=== PATIENT | female | born 1935 | race Caucasian/White ===

== ENCOUNTER → 2017-04-30 08:56 | Outpatient (CLI) | payer MEDICARE, SELFPAY ==
--- NOTE | 2017-04-30 08:59 | MM_ITS ---
MM Dig screening mamm BI w/CAD CAD Screening COMPARISON: Digital mammograms 04/16/2015 and 04/25/2016 INDICATION: There is a history of breast cancer in patient's sister diagnosed after menopause. TECHNIQUE: Standard CC and MLO images were obtained. R2 CAD reviewed. FINDINGS: Scattered fibroglandular densities are seen throughout both breasts. There is a possible asymmetric density right breast best seen on the CC projection area this may been present previously but appears slightly more prominent on today's study. Recommend the patient return for spot compression views of the area marked on the film and possibly ultrasound as well this proves to be a true lesion. There are scattered benign-appearing calcifications in each breast and there is arterial calcification in each breast there are no suspicious microcalcifications.. IMPRESSION: BI-RADS Category: 0 Need Additional Imaging Evaluation RECOMMENDED FOLLOW-UP: IMM - IMMEDIATE FOLLOW-UP RECOMMENDED (A letter has been sent to the patient regarding results of the study.)
--- NOTE | 2017-04-30 08:59 | XR_ITS ---
DEXA SCAN.-BONE DENSITY STUDY HIPS AND LUMBAR SPINE HISTORY: Postmenopausal female. 81-year-old postmenopausal female. Personal and family history of fracture. Low calcium intake TECHNIQUE: DEXA scan hip and lumbar spine The most complete data summary and color graphic presentation of the today's ( and any prior ) DEXA findings are available in PACS. Definition and treatment guidelines included. COMPARISON:. April 2016 LUMBAR SPINE: Normal bone density at This T2 likely accentuated the sclerotic endplate changes particularly L2/3 L3/4. Mild levoscoliosis of L-spine noted L2 vertebral body demonstrates the lowest T score -1.4 with BMD1.028 g/cm sq Overall mean lumbar L1-L4 T score 0.3 with BMD1.219 g/cm sq . 2017 prior DEXA the mean T score 0.2,. With BMD was1.24g/cm sq Thus when comparing today's study to the prior exam there's been a 1.2% increasing mean bone density at the lumbar spine. HIPS: Femoral neck density is best predictor of hip fracture risk . Right femoral neck demonstrates the lowest T score -2.6 with BMD0.68 g/cm sq . = Early Osteoporosis Left lower neck T score -2.3 with BMD 0.712 Averaging all regions yields overall Hip Mean T score -1.5 with BMD0.814 g/cm sq . 2017 DEXA hip overall T score -1.2 with mean BMD0.853 g/cm sq Thus this reflects a 4. 6% decrease in overall mean bone density at the hips in the interval. The sampling of boxes and reference point for measurement appear similar only slightly very from 2017 to the current. This may account in part for the subtle variation. IMPRESSION 1. LUMBAR SPINE: Normal bone density . levoscoliosis of L-spine noted 2. HIPS: Overall osteopenia at the hips with T score -1.5. 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 (This Likely exaggerated by subtle variations of positioning the sampling boxes & reference points) WHO criteria for post-menopausal, Women: Normal: T-score at or above -1 SD Osteopenia: T-score between -1 and -2.5 SD Osteoporosis: T-score at or below -2.5 SD
== END ==
PROVIDERS: Family Provider Family Medicine; PCP Family Medicine; Visit Provider Obstetrics & Gynecology
DX: Z78.0 Asymptomatic menopausal state; Z01.419 Encounter for gynecological examination (general) (routine) without abnormal findings; Z13.820 Encounter for screening for osteoporosis; Z12.31 Encounter for screening mammogram for malignant neoplasm of breast
CPT/HCPCS: 77067; 77080

== ENCOUNTER → 2018-04-01 09:37 | Outpatient (CLI) | payer MEDICARE, SELFPAY ==
--- NOTE | 2018-04-01 09:41 | XR_ITS ---
XR DEXA axial skeleton HISTORY: ITS.REASON: OSTEOPOROSIS ORDERING PHYSICIAN: Yossi Acosta MD PATIENT AGE: 82 years COMPARISON: 04/30/2017 FINDINGS: The BMD measured at the Right femoral neck is 0.661 g/cm squared with a T score of -2.7. This is considered Osteoporotic according to the World Health Organization criteria. Fracture risk is High. Treatment is advised. The L1 L4 density has a T score of 0.5. The spine and hip density has increased by 1.4%. IMPRESSION: Osteopenia without fracture risk. Suggest treatment and follow-up exam in March 2019
== END ==
PROVIDERS: PCP Internal Medicine Adolescent Medicine; Referring Provider Internal Medicine Adolescent Medicine; Visit Provider Internal Medicine Adolescent Medicine
DX: M81.0 Age-related osteoporosis without current pathological fracture (principal)
CPT/HCPCS: 77080

== ENCOUNTER → 2018-11-01 07:00 | Outpatient (CLI) | payer MEDICARE, SELFPAY ==
--- NOTE | 2018-11-01 07:11 | NM_ITS ---
APPROVED REPORT Exam: Nuclear Stress Test Indication: HTN, DM, SOB, Fatigue, Rt arm pain, Family hx, High Cholesterol Patient Location: Outpatient Stress Tech: [place] Tech:RIGO Kearns RT(R)(N) Ht: 5 ft 0 in Wt: 160 lbs BSA: 1.70 m2 HR: 60 bpm BP: 195/77 mmHg History: HTN, DM, SOB, Fatigue, Rt arm pain, Family hx, High Cholesterol Procedure: Patient received a 0.4 mg of intravenous Lexiscan, resting heart rate 60 bpm, resting blood pressure 195/77 mmHg, with Lexiscan maximum heart rate achived was 79 bpm which is Less than 85 % of the maximum predicted heart rate and blood pressure was 204/88 mmHg. With Lexiscan, patient denied any complaint of chest pain. Electrocardiogram Resting electrocardiogram showed sinus rhythm right ventricular conduction delay, with Lexiscan there is less than 1.[address] segment depression from the baseline EKG. Cardiac Stress and Resting SPECT Images: Cardiac Stress and Resting SPECT images were obtained using technetium 99m Myoview 31 mCi stress and 10 mCi at rest. Gated SPECT for analysis of segmental wall motion and completion of the ejection fraction also done. Cardiac stress and resting SPECT images show mild fixed defect in the anterior wall with normal contractility and the gated SPECT is likely secondary to soft tissue attenuation. Computer derived ejection fraction is over 65% with no regional wall motion abnormality, right ventricle is normal size and contractility. Conclusion: 1. The EKG portion of the Lexiscan Myoview is nondiagnostic. 2. No scintigraphic evidence of reversible ischemia seen, computer derived ejection fraction is over 65% with no regional wall motion abnormality, right ventricle is normal size and contractility. 3. Normal Lexiscan Myoview study. Electronically signed by : Silvestre Oh, 11/07/2018 15:34:47
--- NOTE | 2018-11-01 09:56 | HMH.ITSHM ---
Current Home Medications as stated by this patient Lidya Zamora or human resources representative. []metformin metoprolol losartan pravastatin
== END ==
PROVIDERS: PCP Internal Medicine Adolescent Medicine; Visit Provider Internal Medicine Adolescent Medicine
DX: R07.89 Other chest pain (principal); R94.31 Abnormal electrocardiogram [ECG] [EKG]
CPT/HCPCS: 78452; 93017; A9502; J2785

== ENCOUNTER 2019-08-19 13:08 | Emergency (ER) | payer MEDICARE, SELFPAY ==
[2019-08-19] VITALS (14 sets, daily range): BP systolic 102–241; BP diastolic 46–99; PULSE 65–85; RESP 16–18; TEMP 36.6–37.1; O2SAT 98; BMI 29.2
--- NOTE | 2019-08-19 13:20 | HMH.EDGENADL ---
ED Disposition Clinical Impression: Uncontrolled hypertension, Hypertensive urgency Disposition: Home, Self-Care Condition on Discharge: Good Instructions: DI for High Blood Pressure Additional Instructions: Continue metoprolol and losartan/HCTZ as previously. Add nifedipine XL 30 mg daily, start first dose tonight. See Dr. Chaney in the office tomorrow for blood pressure recheck. Return to the emergency department if severe headache, blurry vision, chest pain, or shortness of breath. Prescriptions: NIFEdipine [Procardia XL 30mg Tablet] 30 mg PO DAILY #14 tablet.er Transmission Status: Received by [facility] #[id number] Referrals: Yossi Acosta MD [Primary Care Provider] - - Critical Care Critical Care Time: Yes Attestation: On , the high probability of a clinically significant, sudden or life threatening deterioration of the following system(s) required my full and direct attention, intervention and personal management. The time I documented below is in addition to time spent performing reported procedures but includes the following listed in this critical care notation. Total Critical Care Time: 30 Vital system(s) involved:: Circulatory Failure My critical care processes included: Assessment & monitoring of V/S, Initial and Re-exams, Data Review/Interpretation, Coordinating Care, Medication Orders and management, Documentation Medical Decision Making - Medical Records Medical records reviewed: Yes: I reviewed the patient's medical records. - Stephen Inquiry Pt receiving controlled substance: No Vital Signs: 08/19/19 13:09 08/19/19 13:39 08/19/19 13:47 Temperature 98.8 F Temperature Source Oral Pulse Rate Pulse Rate [Left Radial] 69 70 72 Respiratory Rate 18 Blood Pressure Blood Pressure [Left Arm] 230/81 H 199/99 H 214/88 H Blood Pressure [Right Arm] 241/93 H Blood Pressure Mean [Left Arm] 130 132 130 Blood Pressure Mean [Right Arm] 142 Blood Pressure Source [Left Arm] Blood Pressure Position [Left Arm] 02 Sat by Pulse Oximetry 98 Oxygen Delivery Method Room Air 08/19/19 14:06 08/19/19 14:11 08/19/19 14:20 Temperature Temperature Source Pulse Rate Pulse Rate [Left Radial] 65 Respiratory Rate Blood Pressure Blood Pressure [Left Arm] 214/94 H 151/66 H Blood Pressure [Right Arm] 112/53 L Blood Pressure Mean [Left Arm] 134 94 Blood Pressure Mean [Right Arm] 72 Blood Pressure Source [Left Arm] Automatic Cuff Blood Pressure Position [Left Arm] Sitting 02 Sat by Pulse Oximetry Oxygen Delivery Method 08/19/19 14:27 08/19/19 14:29 08/19/19 14:45 Temperature Temperature Source Pulse Rate Pulse Rate [Left Radial] Respiratory Rate Blood Pressure Blood Pressure [Left Arm] 106/50 L Blood Pressure [Right Arm] 102/46 L 107/54 L Blood Pressure Mean [Left Arm] 68 Blood Pressure Mean [Right Arm] 64 71 Blood Pressure Source [Left Arm] Blood Pressure Position [Left Arm] Sitting 02 Sat by Pulse Oximetry Oxygen Delivery Method 08/19/19 14:46 08/19/19 14:58 08/19/19 16:12 Temperature 98.2 F Temperature Source Pulse Rate 85 Pulse Rate [Left Radial] Respiratory Rate 18 Blood Pressure 149/71 H Blood Pressure [Left Arm] 113/53 L 127/60 Blood Pressure [Right Arm] Blood Pressure Mean [Left Arm] 73 82 Blood Pressure Mean [Right Arm] Blood Pressure Source [Left Arm] Blood Pressure Position [Left Arm] Sitting Sitting 02 Sat by Pulse Oximetry Oxygen Delivery Method - Lab Data Lab results reviewed: Yes: I reviewed the patient's lab results. Lab Results 08/19/19 13:45: WBC 7.8, RBC 4.40, Hgb 13.0, Hct 37.8, MCV 86.1, MCH 29.5, MCHC 34.2, RDW 13.8, Plt Count 170, MPV 8.3, Neut % (Auto) 42.1, Lymph % (Auto) 50.2 H, Ber[place] % (Auto) 5.2, Eos % (Auto) 2.0, Baso % (Auto) 0.5, Neut # (Auto) 3.3, Lymph # (Auto) 3.9, [place] # (Auto) 0.4, Eos # (Auto) 0.2, Baso # (Auto) 0.0, Total
--- NOTE | 2019-08-19 13:40 | ECG_ITS ---
APPROVED REPORT Exam: Resting ECG HR:67 bpm ECG Measurements Heart Rate 67 AXES NV 178 P 36 QRSd 142 QRS -36 QT 442 T 17 QTc 467 <Conclusion> Normal sinus rhythm Left axis deviation Right bundle branch block Voltage criteria for left ventricular hypertrophy Cannot rule out Septal infarct, age undetermined Abnormal ECG Electronically signed by : Yossi Acosta, 08/20/2019 17:09:11
[2019-08-19 14:02] LABS: Anion Gap 14.4 mEq/L (5-15); Blood Urea Nitrogen 10 mg/dl (7-17); Carbon Dioxide 29 mmol/L (22.0-30.0); Chloride 101 mmol/L (98-107); Creatinine Clearance Estimated 47 mL/min (50-200); Estimated Glomerular Filt Rate 80 ml/min (>60); GFR (African American) 97 ML/MIN (>60); Glucose 153 mg/dl (74-100); Potassium 3.4 mmoL/L (3.5-5.1); Sodium 141 mmol/L (136-145)
[2019-08-19 14:12] LABS: Basophils % 0.5 % (0.1-2.0); Eosinophils # 0.2 K/mm3 (0.0-0.4); Hematocrit 37.8 % (37.0-47.0); Lymphocytes # 3.9 K/mm3 (0.7-4.5); Lymphocytes % 50.2 % (10-50); Mean Corpuscular HGB Conc 34.2 g/dL (31.8-35.4); Mean Corpuscular Hemoglobin 29.5 pg (27.0-31.2); Mean Corpuscular Volume 86.1 fl (81-99); Mean Platelet Volume 8.3 fl (7.4-10.4); Monocytes # 0.4 K/mm3 (0.1-1.0); Monocytes % 5.2 % (1.7-9.3); Neutrophils # 3.3 K/mm3 (1.8-7.8); Neutrophils % 42.1 % (37.0-80.0); Platelet Count 170 K/mm3 (142-424); Red Cell Distribution Width 13.8 % (11.5-17.5); White Blood Count 7.8 K/mm3 (4.8-10.8)
[2019-08-19 14:22] LABS: MANUAL DIFFERENTIAL MANUAL DIFFERENTIAL (MANUAL DIFF)
[2019-08-19 14:25] LABS: Troponin I < 0.01 ng/ml (0.00-0.034)
[2019-08-19 14:27] LABS: Eosinophils % 2 % (0-3); Lymphocytes % 50 % (10-50); Monocytes % 6 % (2-9); Neutrophils % 42 % (42-76); Total Cells Counted 100
[2019-08-19 14:28] LABS: Platelet Estimate Normal; RBC Morphology Normal
--- NOTE | 2019-08-19 14:55 | PC.NURSE ---
CALLED FOR DR ZIMMERMAN OFFICE STAFF SAID HE WAS UNAVAILABLE BUT WILL LEAVE HIM A MESSAGE
--- NOTE | 2019-08-19 15:23 | PC.NURSE ---
.CALLED THE OFFICE FOR ERASMO , NOBODY IS ANSWERING , HAVING WHOEVER PROCESS MANAGER PAGED
--- NOTE | 2019-08-19 15:25 | PC.NURSE ---
WAS TOLD BY SWITCHBOARD HE WAS BUSY AND HE WOULD CALL WHEN HE IS DONE
--- NOTE | 2019-08-19 15:40 | PC.NURSE ---
dr santana is calling dr richards's office.
--- NOTE | 2019-08-19 15:46 | PC.NURSE ---
dr santana has been on hold for dr richards 7mins
--- NOTE | 2019-08-19 15:47 | PC.NURSE ---
office staff returned to phone and told dr santana that dr richards said he would call him back
--- NOTE | 2019-08-19 15:54 | PC.NURSE ---
speaking to Dr Caputo
--- NOTE | 2019-08-19 16:11 | PC.NURSE ---
appt: Karla/Harshal on 08/20/19 @2:00
== END 2019-08-19 16:21 | disposition home or self-care (01) ==
PROVIDERS: Emergency Provider Emergency Medicine; PCP Internal Medicine Adolescent Medicine
DX: I16.0 Hypertensive urgency (principal); K85.90 Acute pancreatitis without necrosis or infection, unspecified; Z79.899 Other long term (current) drug therapy; Z90.49 Acquired absence of other specified parts of digestive tract
CPT/HCPCS: 80048; 84484; 85007; 85025; 93005; 96365; 99284

== ENCOUNTER → 2020-05-18 09:12 | Outpatient (CLI) | payer MEDICARE, SELFPAY ==
--- NOTE | 2020-05-18 09:17 | XR_ITS ---
PROCEDURE: XR DEXA AXIAL SKELETON CLINICAL HISTORY: OSTEOPOROSIS W/O CURRNET PATHOLOGICAL FRACTURE COMPARISON: CR DEXAAX XR DEXA axial skeleton from 04/01/2018 FINDINGS: The right hip BMD is 0.535 with a T-score of -2.8. The left hip BMD is 0.639 with a T-score of -1.9. The lumbar spine BMD is 0.983 with a T-score of -0.6. Previously the lowest density was in the right femoral neck with a T-score -2.7 IMPRESSION: This patient is considered osteoporotic according to the World Health Organization criteria. Fracture risk is high. Treatment is advised. Based on these results a follow-up exam is recommended in 1 year. Dictated by: Killian Choi MD 05/20/2020 08:00 Killian Choi MD in [place] 05/20/2020 08:00
== END ==
PROVIDERS: PCP Internal Medicine Adolescent Medicine; Visit Provider Internal Medicine Adolescent Medicine
DX: M81.0 Age-related osteoporosis without current pathological fracture (principal)
CPT/HCPCS: 77080

== ENCOUNTER 2020-07-21 15:28 | Outpatient (CLI) | payer MEDICARE, SELFPAY ==
[2020-07-21 15:46] VITALS: BMI 29.7
[2020-07-21 16:12] LABS: Microscopic, Urine URINE MICROSCOPIC (MICROSCOPIC)
[2020-07-21 16:13] LABS: Appearance,Urine CLEAR (Clear); Basophils # 0.1 K/mm3 (0-0.2); Basophils % 0.5 % (0.1-2.0); Bilirubin,Urine Negative (Negative); Blood, Urine 1+ (Negative); Color,Urine YELLOW (Yellow); Eosinophils # 0.1 K/mm3 (0.0-0.4); Glucose,Urine (UA) Negative (Negative); Hemoglobin 14.1 g/dL (12.2-16.2); Ketones,Urine 2+ (Negative); Leukocyte Esterase,Urine 2+ (Negative); Lymphocytes # 4.1 K/mm3 (0.7-4.5); Lymphocytes % 40.5 % (10-50); Mean Corpuscular HGB Conc 33.6 g/dL (31.8-35.4); Mean Corpuscular Hemoglobin 29.1 pg (27.0-31.2); Mean Corpuscular Volume 86.6 fl (81-99); Mean Platelet Volume 8.3 fl (7.4-10.4); Monocytes # 0.4 K/mm3 (0.1-1.0); Monocytes % 4.1 % (1.7-9.3); Neutrophils # 5.4 K/mm3 (1.8-7.8); Neutrophils % 53.9 % (37.0-80.0); Nitrate,Urine Negative (Negative); PH,Urine 5.5 (5.0-8.5); Platelet Count 196 K/mm3 (142-424); Protein,Urine 2+ (Negative); Red Blood Count 4.85 M/mm3 (4.20-5.40); Red Cell Distribution Width 14.1 % (11.5-17.5); Specific Gravity, Urine >= 1.030 (1.005-1.030); Urobilinogen,Urine 0.2 EU/dl (0.2)
[2020-07-21 16:15] VITALS: BP 162/81; PULSE 90; RESP 18; TEMP 36.3; O2SAT 96
[2020-07-21 16:15] LABS: Chloride 103 mmol/L (98-107)
[2020-07-21 16:16] LABS: Potassium 3.9 mmoL/L (3.5-5.1); Sodium 141 mmol/L (136-145)
[2020-07-21 16:18] LABS: Amylase 101 U/L (30-110)
[2020-07-21 16:19] LABS: Anion Gap 18.9 mEq/L (5-15); Blood Urea Nitrogen 15 mg/dl (7-17); Calcium 10.3 mg/dl (8.4-10.2); Carbon Dioxide 23 mmol/L (22.0-30.0); Creatinine Clearance Estimated 46 mL/min (50-200); Estimated Glomerular Filt Rate 95 ml/min (>60); GFR (African American) 116 ML/MIN (>60); Glucose 142 mg/dl (74-100); Lipase 169 U/L (23-300)
[2020-07-21 16:21] LABS: Bacteria,Urine 4+ /lpf; Squamous Epithelial Cell,Urine TNTC #/hpf (0-5); WBC,Urine 50-100 #/hpf (0-3)
[2020-07-21 16:45] VITALS: BP 214/76; PULSE 116; RESP 18
[2020-07-21 17:00] VITALS: BP 200/120; PULSE 106; RESP 20
== END 2020-07-21 17:00 | disposition still patient (30) ==
LOC: INF 15:32
PROVIDERS: PCP Internal Medicine Adolescent Medicine; Visit Provider Internal Medicine Adolescent Medicine
DX: I10 Essential (primary) hypertension (principal)
CPT/HCPCS: 80048; 81001; 82150; 83690; 85025; 87086; 96374

== ENCOUNTER 2020-07-21 17:08 | Emergency (ER) | payer MEDICARE, SELFPAY ==
--- NOTE | 2020-07-21 17:06 | ECG_ITS ---
APPROVED REPORT Exam: Resting ECG HR:111 bpm ECG Measurements Heart Rate 111 AXES MN 152 P 58 QRSd 128 QRS -42 QT 362 T 5 QTc 492 Conclusion Sinus tachycardia Left axis deviation Right bundle branch block Voltage criteria for left ventricular hypertrophy Old anteroseptal changes Abnormal ECG Electronically signed by : Yossi Acosta, 07/23/2020 09:07:52
[2020-07-21 17:08] VITALS: BP 186/115; PULSE 112; RESP 18; TEMP 36.3; O2SAT 97; BMI 29.7
--- NOTE | 2020-07-21 17:19 | HMH.EDGENADL ---
ED Disposition Clinical Impression: Acute UTI Hypertension Qualifiers: Hypertension type: essential hypertension Qualified Code(s): I10 - Essential (primary) hypertension Adverse reaction to drug Qualifiers: Encounter type: initial encounter Qualified Code(s): T50.905A - Adverse effect of unspecified drugs, medicaments and biological substances, initial encounter Disposition: Home, Self-Care Condition on Discharge: Good Instructions: DI for High Blood Pressure, DI for Adverse Drug Reaction -- Other Prescriptions: Nitrofurantoin Monohyd/M-Cryst [Macrobid 100 mg Capsule] 100 mg PO BID #14 cap Transmission Status: Received by [facility] #[id number] Referrals: Yossi Acosta MD [Primary Care Provider] - 07/23/20 - Critical Care Critical Care Time: No Attestation: On , the high probability of a clinically significant, sudden or life threatening deterioration of the following system(s) required my full and direct attention, intervention and personal management. The time I documented below is in addition to time spent performing reported procedures but includes the following listed in this critical care notation. Medical Decision Making - Medical Records Medical records reviewed: Yes: I reviewed the patient's medical records. - Stephen Inquiry Pt receiving controlled substance: No Vital Signs: 07/21/20 17:08 Temperature 97.4 F L Temperature Source Oral Pulse Rate [Right Radial] 112 H Respiratory Rate 18 Blood Pressure [Right Arm] 186/115 H Blood Pressure Mean [Right Arm] 138 Blood Pressure Source [Right Arm] Automatic Cuff Blood Pressure Position [Right Arm] Sitting 02 Sat by Pulse Oximetry 97 Oxygen Delivery Method Room Air - Lab Data Lab results reviewed: Yes: I reviewed the patient's lab results. Lab Results 07/21/20 17:22: Troponin I < 0.01 Orders (Tests/Meds): ED MEDICATIONS Generic Name Dose Route Start Last Admin Trade Name Freq PRN Reason Stop Dose Admin Ceftriaxone Sodium 1 gm/ 50 mls @ 100 mls/hr 07/21/20 18:01 Sodium Chloride IV 07/21/20 18:30 ONCE STA Protocol Discontinued Medications Generic Name Dose Route Start Last Admin Trade Name Freq PRN Reason Stop Dose Admin Hydralazine HCl 10 mg 07/21/20 17:39 07/21/20 17:54 Hydralazine 20mg/Ml Vial IV 07/21/20 17:40 10 mg ONCE ONE Administration ORDERS Category Date Time Status Troponin I Q3H Lab 07/21/20 20:30 Ordered Troponin I Q3H Lab 07/21/20 23:30 Ordered - ECG Data Tracing #1 EKG at 1733 shows a sinus rhythm with a slightly short UT. Normal QRS and QTc. No STEMI. EKG interpreted by me. Medical Decision Narrative: Patient is completely alert and oriented here. She has never had Phenergan before per her report. Transient confusion likely related to this. No lateralizing motor or sensory changes that would suggest CVA. EKG with no signs of acute ischemia. Patient is slightly tachycardic, but has not had her beta-natalie in approximately 36 hours. Given hydralazine here. Patient states her nausea is much better and she will be able to tolerate her blood pressure medications at home. Repeat blood pressure after hydralazine is 145 systolic. Tolerating water here and crackers. Discharged home to resume her blood pressure medication regimen. Since previous lab work from earlier today shows significant anion gap, but has already received fluids with her Phenergan. She does appear to have a urinary tract infection as well, was given Rocephin here and discharged home with prescription for Macrobid. Encouraged to return for any acute worsening of symptoms or other acute new concerns. General Adult HPI - General Chief complaint: Weakness Stated complaint: elevated bp Time Seen by Provider: 07/21/20 17:19 Mode of Arrival: Wheelchair Limitations: No Limitations Description of Symptoms (Recalled from ER Triage Doc. by RN): Pt sent down from infusion department r/t
[2020-07-21 17:32] VITALS: BP 184/104; PULSE 99; RESP 18; O2SAT 96
[2020-07-21 17:50] VITALS: BP 182/97; PULSE 105; RESP 18; O2SAT 96
--- NOTE | 2020-07-21 17:50 | PC.NURSE ---
pt ambulated to restroom with full assist of staff x1, pt is unsteady on her feet. Notified ER MD. will continue to monitor
[2020-07-21 18:03] VITALS: BP 184/101; PULSE 100; RESP 18; O2SAT 96
[2020-07-21 18:08] LABS: Troponin I < 0.01 ng/ml (0.00-0.034)
--- NOTE | 2020-07-21 18:08 | PC.NURSE ---
pt drinking water at this time
--- NOTE | 2020-07-21 18:44 | PC.NURSE ---
notified ER MD of pt bp 167/109, no new orders per ER MD. ER MD states okay to send pt home, states pt has been instructed to take her regular bp medications when she gets home. Notified ER MD pt is still unsteady on her feet, no new orders obtained at this time.
[2020-07-21 18:50] VITALS: BP 167/109; PULSE 90; RESP 18; TEMP 36.3; O2SAT 98
== END 2020-07-21 18:51 | disposition home or self-care (01) ==
PROVIDERS: Emergency Provider Emergency Medicine; PCP Internal Medicine Adolescent Medicine
DX: R11.2 Nausea with vomiting, unspecified (principal); T42.6X5A Adverse effect of other antiepileptic and sedative-hypnotic drugs, initial encounter; R41.82 Altered mental status, unspecified; N30.00 Acute cystitis without hematuria; I16.0 Hypertensive urgency; E78.5 Hyperlipidemia, unspecified; E11.9 Type 2 diabetes mellitus without complications
CPT/HCPCS: 80048; 81001; 82150; 83690; 84484; 85025; 87086; 93005; 96365; 96374; 96375; 99282

== ENCOUNTER → 2020-09-08 12:43 | Outpatient (CLI) | payer MEDICARE, SELFPAY ==
--- NOTE | 2020-09-08 12:49 | FL_ITS ---
PROCEDURE: FL BARIUM SWALLOW MODIFIED CLINICAL INDICATION: DYSPHAGIA COMPARISON: No exams were available for comparison TECHNIQUE: Patient administered varying consistencies of barium contrast, while viewed in lateral position under real-time fluoroscopy with cine recording. FLUOROSCOPY TIME:1 minutes and 53 seconds The study was performed in conjunction with speech pathologist. Please see that report & recommendations. FINDINGS: Patient was given varying consistencies of barium. No aspiration or penetration apparent. There was some esophageal residual in the upper esophageal region. There is fusion C5 and C6.. IMPRESSION: No aspiration or penetration. There is some residual in the upper esophagus which may be better evaluated with regular barium swallow Please see speech pathologist report and recommendations. Dictated by: Killian Choi MD 09/09/2020 10:38 Killian Choi MD in [place] 09/09/2020 10:38
--- NOTE | 2020-09-08 13:45 | HMH.SLMBS2 ---
Speech & Language Evaluation Speech/Language Mod Barium Swallow Start: 09/08/20 13:36 Freq: once Status: Complete Protocol: Document 09/08/20 13:36 IS[facility] (Rec: 09/08/20 13:45 ISH [id number]) General Information General Current Food Consistancy Regular,Thin Liquids Dentition Good Dentition Oxygen Status Room Air Facial Symmetry Symmetrical Patient Orientation Person,Place,Time,Situation Ability to Follow Directions Excellent Communication Ability No Impairment MBS Recommendations Diet Dietary Recommendations Regular,Thin Liquids Referrals/Other Recommended Referrals GI Consult Other Recommendations Esophagram to rule out esophageal phase impairments Mod Barium Swallow Impressions Summary and Impressions Oral Phase Impression No Impairment (WFL) Oral Phase Summary Ms. Zamora was given the following consistencies: thins via straw and open cup, pudding, regular, mixed, and pill with thin wash. No oral phase impairments noted. Pharyngeal Phase Impression No Impairment (WFL) Pharyngeal Phase Summary No pharyngeal phase impairments noted during evaluation. It was noted that once the bolus passed into the esophageal phase of swallowing, bolus slowed in rate of movement and residue was noted in esophagus. Speech/Language MBS Assessment/Goals/Plan Assessment Date of Evaluation: 09/08/20 Evaluation Type Initial Certification Assessment/Problems Dysphagia Does Patient Qualify for Service No Qualify/Failure Comment No overt s/s of aspiration noted during evaluation. Recommendations PHYSICIAN CERTIFICATION: The specified therapy services are required, authorized, and reviewed every 30 days. Dysphagia Swallow Precautions/Strategies Sitting Upright (90 deg),Small Bites and Sips,Alternate Liquids/Solids Plan Pt/Guardian verbally ack understanding Yes of dx/prognosis/goals G -code Required No Mod Barium Swallow Setup Exam Setup Radiologist Killian Choi Level of Consciousness Awake,Alert,Appropriate, Follows Commands Position (degrees) 90 Mod Barium Swallow-Lat View Textures Lateral View Food Presentation Thin Liquid via Cup,Thin Liquid via Straw,Regular Food,
== END ==
PROVIDERS: PCP Internal Medicine Adolescent Medicine; Visit Provider Internal Medicine Adolescent Medicine
DX: R13.10 Dysphagia, unspecified (principal)
CPT/HCPCS: 70371; 92611

== ENCOUNTER → 2020-10-12 08:38 | Outpatient (CLI) | payer MEDICARE, SELFPAY ==
[2020-10-12 09:10] LABS: Basophils # 0.2 K/mm3 (0-0.2); Eosinophils # 0.2 K/mm3 (0.0-0.4); Eosinophils % 2.6 % (0.1-12.0); Hematocrit 39.8 % (37.0-47.0); Lymphocytes # 5.3 K/mm3 (0.7-4.5); Lymphocytes % 57.6 % (10-50); Mean Corpuscular HGB Conc 32.7 g/dL (31.8-35.4); Mean Corpuscular Hemoglobin 29.3 pg (27.0-31.2); Mean Corpuscular Volume 89.5 fl (81-99); Mean Platelet Volume 8.4 fl (7.4-10.4); Monocytes # 0.3 K/mm3 (0.1-1.0); Monocytes % 3.5 % (1.7-9.3); Neutrophils # 3.2 K/mm3 (1.8-7.8); Neutrophils % 34.2 % (37.0-80.0); Platelet Count 187 K/mm3 (142-424); Red Blood Count 4.45 M/mm3 (4.20-5.40); Red Cell Distribution Width 14.3 % (11.5-17.5); White Blood Count 9.2 K/mm3 (4.8-10.8)
[2020-10-12 09:21] LABS: MANUAL DIFFERENTIAL MANUAL DIFFERENTIAL (MANUAL DIFF)
[2020-10-12 09:34] LABS: Eosinophils % 5 % (0-3); Hypochromasia 2+; Lymphocytes % 56 % (10-50); Macrocytosis 1+; Monocytes % 5 % (2-9); Neutrophils % 34 % (42-76); Platelet Estimate Normal; Total Cells Counted 100
[2020-10-12 10:18] LABS: Alanine Aminotransferase 15 U/L (12-78); Albumin Level 4.3 g/dl (3.5-5.0); Alkaline Phosphatase 64 U/L (38-126); Anion Gap 15.7 mEq/L (5-15); Aspartate Amino Transferase 22 U/L (14-36); Bilirubin,Total 0.6 mg/dl (0.2-1.3); Blood Urea Nitrogen 9 mg/dl (7-17); Calcium 9.3 mg/dl (8.4-10.2); Carbon Dioxide 24 mmol/L (22.0-30.0); Chloride 107 mmol/L (98-107); Chol/HDL Ratio 5.5 (1-3.5); Cholesterol 175 mg/dl (140-200); Estimated Glomerular Filt Rate 95 ml/min (>60); GFR (African American) 116 ML/MIN (>60); Globulin 2.2 g/dL (1.3-3.2); Glucose 130 mg/dl (74-100); HDL Cholesterol 32 mg/dl (40-60); Potassium 3.7 mmoL/L (3.5-5.1); Sodium 143 mmol/L (136-145); Total Protein,Serum 6.5 g/dl (6.3-8.2); Triglycerides 346 mg/dl (30-150); VLDL Cholesterol 69 mg/dL (0-40)
[2020-10-12 10:22] LABS: Hemoglobin A1C 6.6 % (4.0-6.0)
[2020-10-12 10:29] LABS: Direct LDL Cholesterol 80.35 mg/dL (100-129)
[2020-10-12 10:37] LABS: 25-OH Vitamin D, Total 42.9 ng/mL (30-100)
== END ==
PROVIDERS: Visit Provider Internal Medicine Adolescent Medicine
DX: E11.9 Type 2 diabetes mellitus without complications (principal); E78.5 Hyperlipidemia, unspecified; M81.0 Age-related osteoporosis without current pathological fracture; Z79.4 Long term (current) use of insulin
CPT/HCPCS: 36415; 80053; 80061; 82306; 83036; 85007; 85025

== ENCOUNTER → 2021-03-22 15:58 | Outpatient (CLI) | payer MEDICARE, SELFPAY | PROVIDERS: PCP Internal Medicine Adolescent Medicine; Visit Provider Nurse Practitioner | DX: U07.1 COVID-19 (principal) | CPT/HCPCS: C9803; U0003; U0005 ==

== ENCOUNTER → 2021-08-19 12:38 | Outpatient (CLI) | payer MEDICARE, SELFPAY ==
--- NOTE | 2021-08-19 | CA_ITS ---
APPROVED REPORT EXAM: Comprehensive 2D, Doppler, and color-flow Echocardiogram Compounding And Finishing Supervisor: Shakila Asencio CRT Ht: 5 ft 0 in Wt: 150lbs BSA: 1.65 BP: 110/70 mmHg Indications: Shortness of Breath, Hyperlipidemia 2D Dimensions LVOT 1.65 cm (M/F) 1.5-2.5 LA Volume 53.40 mL LA Volume Index 32.40 mL/m2 (M/F) 16-34 M-Mode Dimensions RVDd 2.21 cm (0.9-2.6) LA Diam 3.66 cm (1.9-4.0) LVDd 4.66 cm (3.5-5.7) Ao Diam 3.55 cm (2.0-3.7) LVDs 3.06 cm (3.5-5.7) IVSd 1.10 cm (0.6-1.1) PWd 0.57 cm (0.6-1.1) EF (Teich) 63.40% FS 34.30% EDV (Teich) 100.30 mL ESV (Teich) 36.70 mL LV Diastology E Decel Time 333.00 (160-240 msec) E/A Ratio 0.59 Aortic Valve LVOT Max 159.00 (70-110 cm/s) LVOT VTI 31.88 cm AoV Peak Jeffery. 208.00 (50-130 cm/s) AO Peak GR. 17.40 mmHg AO Mean GR. 10.30 (<5 mmHg) AO VTI 38.06 (18-25 cm) AIMEE (VTI) 1.79 (2.5-4.5 cm2) Mitral Valve MV E Max Jeffery. 69.00 (40-130 cm/s) MV A Velocity 117.00 (40-130 cm/s) E/A Ratio 0.59 MV Decel. Time 333.00 (160-240 ms) MV PHT 98.00 ms Pulmonary Valve PV Peak Velocity 192.00 (50-150 cm/s) Tricuspid Valve TR P. Velocity 323.00 cm/s RAP Estimate 10.00 mmHg RVSP 51.70 mmHg Left Ventricle Left atrium is mildly enlarged, left ventricle is normal size, mild concentric left ventricular hypertrophy, estimated ejection fraction 55% with no regional wall motion abnormality, Doppler evidence of impaired LV relaxation seen. Right Ventricle M and right ventricle are normal size and contractility. Aortic Valve Aortic valve is thickened and calcified mean gradient across aortic valve is 11 mmHg, that represents mild aortic stenosis, there is no aortic insufficiency. Mitral Valve Mitral valve leaflets are minimally thickened, there is mild mitral regurgitation. Tricuspid Valve Tricuspid valve grossly normal, there is mild tricuspid regurgitation, calculated right ventricular systolic pressure is 44 mmHg. Pulmonic Valve Pulmonic valve is poorly visualized. Great Vessels Aortic root is normal size. Inferior vena cava is normal size with normal respiratory collapse. Pericardium No significant pericardial effusion noted. Conclusion 1. Mildly enlarged left atrium, normal left ventricular size, mild concentric left ventricular hypertrophy, estimated ejection fraction 55% with no regional wall motion abnormality, Doppler evidence of impaired LV relaxation seen, there is no tissue Doppler performed. 2. Thickened and calcified aortic valve with mild aortic stenosis, there is no aortic insufficiency. 3. Mild mitral and tricuspid regurgitation, calculated right ventricular systolic pressure is 44 mmHg. 4. No significant pericardial effusion noted. 5. Inferior vena cava is normal size with normal inspiratory collapse. Electronically signed by : Silvestre Oh MD 08/19/2021 14:57:04
== END ==
PROVIDERS: PCP Internal Medicine Adolescent Medicine; Visit Provider Internal Medicine Adolescent Medicine
DX: R06.09 Other forms of dyspnea (principal)
CPT/HCPCS: 93306

== ENCOUNTER 2021-09-11 12:37 | Day surgery (SDC) | payer MEDICARE, SELFPAY ==
[2021-09-11] VITALS (13 sets, daily range): BP systolic 143–181; BP diastolic 68–94; PULSE 82–112; RESP 13–19; TEMP 36.3–36.8; O2SAT 93–98; BMI 25.2
--- NOTE | 2021-09-11 13:00 | PC.NURSE ---
PATIENT SENT TO ER PER Chayito RONQUILLO APRN FOR FURTHER EVALUATION. REPORT GIVEN TO Song DOE RN
--- NOTE | 2021-09-11 13:07 | ECG_ITS ---
APPROVED REPORT Exam: Resting ECG HR:87 bpm ECG Measurements Heart Rate 87 AXES UT 186 P 40 QRSd 149 QRS -45 QT 404 T 15 QTc 449 Conclusion SINUS RHYTHM RIGHT BUNDLE BRANCH BLOCK [120+ ms QRS DURATION, UPRIGHT V1, 40+ ms S IN I/aVL/V4/V5/V6] LEFT ANTERIOR FASCICULAR BLOCK [QRS AXIS <= -45, QR IN I, RS IN II] VOLTAGE CRITERIA FOR LVH [MEETS CRITERIA IN ONE OF: R(aVL), S(V1), R(V5), R(V5/V6)+S(V1)] ABNORMAL ECG UNCONFIRMED REPORT Electronically signed by : Yossi Acosta MD 09/12/2021 14:00:53
--- NOTE | 2021-09-11 13:13 | HMH.EDGENADL ---
ED Disposition Clinical Impression: Esophageal obstruction due to food impaction Disposition: Still a Patient Condition on Discharge: Fair Referrals: Yossi Acosta MD [Primary Care Provider] - - Critical Care Critical Care Time: No Attestation: On 09/11/21, the high probability of a clinically significant, sudden or life threatening deterioration of the following system(s) required my full and direct attention, intervention and personal management. The time I documented below is in addition to time spent performing reported procedures but includes the following listed in this critical care notation. Medical Decision Making - Stephen Inquiry Pt receiving controlled substance: No Vital Signs: 09/11/21 12:40 09/11/21 13:13 09/11/21 13:30 Temperature 97.8 F 98.2 F Temperature Source Oral Oral Pulse Rate 82 Pulse Rate [Right Brachial] 91 H 95 H Respiratory Rate 19 13 Blood Pressure 161/79 H Blood Pressure [Right Arm] 153/94 H 170/85 H Blood Pressure Mean 125 Blood Pressure Mean [Right Arm] 113 113 Blood Pressure Source [Right Arm] Automatic Cuff Blood Pressure Position [Right Arm] Sitting 02 Sat by Pulse Oximetry 97 97 98 Oxygen Delivery Method Room Air Room Air 09/11/21 14:00 Temperature Temperature Source Pulse Rate 84 Pulse Rate [Right Brachial] Respiratory Rate Blood Pressure 154/75 H Blood Pressure [Right Arm] Blood Pressure Mean 101 Blood Pressure Mean [Right Arm] Blood Pressure Source [Right Arm] Blood Pressure Position [Right Arm] 02 Sat by Pulse Oximetry 96 Oxygen Delivery Method - Lab Data Lab Results 09/11/21 13:15: WBC 7.3, RBC 4.97, Hgb 14.7, Hct 45.7, MCV 92.0, MCH 29.5, MCHC 32.1, RDW 14.2, Plt Count 198, MPV 8.6, Neut % (Auto) 47.0, Lymph % (Auto) 46.4, Victoria % (Auto) 4.9, Eos % (Auto) 0.7, Baso % (Auto) 1.0, Neut # (Auto) 3.4, Lymph # (Auto) 3.4, Victoria # (Auto) 0.4, Eos # (Auto) 0.1, Baso # (Auto) 0.1 09/11/21 13:15: Sodium 141, Potassium 3.8, Chloride 104, Carbon Dioxide 25, Anion Gap 15.8 H, BUN 14, Creatinine 0.80, Estimated Creat Clear 48, Estimated GFR 68, Est GFR ( Amer) 83, Glucose 161 H, Calcium 10.1, Total Bilirubin 0.5, AST 30, ALT 23, Alkaline Phosphatase 93, Troponin I < 0.01, Total Protein 7.7, Albumin 4.6, Globulin 3.1, Albumin/Globulin Ratio 1.5, Amylase 97, Lipase 144 Result diagrams: 09/11/21 13:15 09/11/21 13:15 Orders (Tests/Meds): ED MEDICATIONS Generic Name Dose Route Start Last Admin Trade Name Freq PRN Reason Stop Dose Admin Sodium Chloride 10 ml 09/11/21 13:17 Sodium Chloride 0.9% 10ml Flush Syringe IV 10/11/21 13:16 NEEDED PRN Maintain IV Site Discontinued Medications Generic Name Dose Route Start Last Admin Trade Name Freq PRN Reason Stop Dose Admin Ondansetron HCl 4 mg 09/11/21 13:42 09/11/21 13:46 Ondansetron 4mg/2ml Vial IV 09/11/21 13:43 4 mg ONCE ONE Administration ORDERS Category Date Time Status Troponin I Q3H Lab 09/11/21 16:30 Ordered Troponin I Q3H Lab 09/11/21 19:30 Ordered Urinalysis and Microscopic Stat Lab 09/11/21 13:17 Ordered - Radiology Data #1 Image(s): Chest Image Reviewed: Yes I have reviewed radiologist's interpretation PROCEDURE INFORMATION: Exam: XR Chest Exam date and time: 09/11/2021 1:24 PM Age: 86 years old Clinical indication: Other: Vomitting; Additional info: Vomiting TECHNIQUE: Imaging protocol: Radiologic exam of the chest. Views: 2 views. COMPARISON: CR CXR2V XR chest 2V 09/08/2017 2:03 AM FINDINGS: Lungs: Unremarkable. No consolidation. Pleural spaces: Unremarkable. No pleural effusion. No pneumothorax. Heart/Mediastinum: Unremarkable. No cardiomegaly. Vasculature: Calcification within thoracic aorta. Bones/joints: Degenerative spondylosis and increased kyphosis of thoracic spine. Osteophytosis and eburnation of the acromioclavicular and glenohumeral articulating surfaces. IMPRESSION:
--- NOTE | 2021-09-11 13:24 | XR_ITS ---
PROCEDURE INFORMATION: Exam: XR Chest Exam date and time: 09/11/2021 1:24 PM Age: 86 years old Clinical indication: Other: Vomitting; Additional info: Vomiting TECHNIQUE: Imaging protocol: Radiologic exam of the chest. Views: 2 views. COMPARISON: CR CXR2V XR chest 2V 09/08/2017 2:03 AM FINDINGS: Lungs: Unremarkable. No consolidation. Pleural spaces: Unremarkable. No pleural effusion. No pneumothorax. Heart/Mediastinum: Unremarkable. No cardiomegaly. Vasculature: Calcification within thoracic aorta. Bones/joints: Degenerative spondylosis and increased kyphosis of thoracic spine. Osteophytosis and eburnation of the acromioclavicular and glenohumeral articulating surfaces. IMPRESSION: No evidence of acute cardiopulmonary process is identified on two views chest.
[2021-09-11 13:32] LABS: Basophils # 0.1 K/mm3 (0-0.2); Eosinophils # 0.1 K/mm3 (0.0-0.4); Eosinophils % 0.7 % (0.1-12.0); Hematocrit 45.7 % (37.0-47.0); Hemoglobin 14.7 g/dL (12.2-16.2); Lymphocytes # 3.4 K/mm3 (0.7-4.5); Lymphocytes % 46.4 % (10-50); Mean Corpuscular HGB Conc 32.1 g/dL (31.8-35.4); Mean Corpuscular Hemoglobin 29.5 pg (27.0-31.2); Mean Platelet Volume 8.6 fl (7.4-10.4); Monocytes # 0.4 K/mm3 (0.1-1.0); Monocytes % 4.9 % (1.7-9.3); Neutrophils # 3.4 K/mm3 (1.8-7.8); Platelet Count 198 K/mm3 (142-424); Red Blood Count 4.97 M/mm3 (4.20-5.40); Red Cell Distribution Width 14.2 % (11.5-17.5); White Blood Count 7.3 K/mm3 (4.8-10.8)
--- NOTE | 2021-09-11 13:42 | PC.NURSE ---
Colin at bs, pt vomiting at this time. ORders for pt placed on mar. at bs
[2021-09-11 13:46] LABS: Alanine Aminotransferase 23 U/L (12-78); Albumin Level 4.6 g/dl (3.5-5.0); Albumin/Globulin Ratio 1.5 (1.1-1.8); Alkaline Phosphatase 93 U/L (38-126); Amylase 97 U/L (30-110); Anion Gap 15.8 mEq/L (5-15); Aspartate Amino Transferase 30 U/L (14-36); Bilirubin,Total 0.5 mg/dl (0.2-1.3); Blood Urea Nitrogen 14 mg/dl (7-17); Calcium 10.1 mg/dl (8.4-10.2); Carbon Dioxide 25 mmol/L (22.0-30.0); Chloride 104 mmol/L (98-107); Creatinine Clearance Estimated 48 mL/min (50-200); Estimated Glomerular Filt Rate 68 ml/min (>60); GFR (African American) 83 ML/MIN (>60); Globulin 3.1 g/dL (1.3-3.2); Glucose 161 mg/dl (74-100); Lipase 144 U/L (23-300); Potassium 3.8 mmoL/L (3.5-5.1); Sodium 141 mmol/L (136-145); Total Protein,Serum 7.7 g/dl (6.3-8.2)
--- NOTE | 2021-09-11 13:56 | PC.NURSE ---
PT advises IV zofran helped eased the nausea and she is feeling a little better at this time. Pt resting in bed with at bs. Nol other needs
[2021-09-11 14:06] LABS: Troponin I < 0.01 ng/ml (0.00-0.034)
--- NOTE | 2021-09-11 14:30 | PC.NURSE ---
Paged Dr. Laguna who is on for General Surgery today
--- NOTE | 2021-09-11 14:32 | PC.NURSE ---
Dr Arevalo talking to Dr Ferrera about patient.
--- NOTE | 2021-09-11 14:34 | PC.NURSE ---
Notified House that Dr. Laguna requested surgery team be called in for EGD
--- NOTE | 2021-09-11 14:41 | PC.NURSE ---
Dr. Arevalo updated pt that Dr. Laguna would be coming in and pt would be going for scope. Pt agreeable with plan.
--- NOTE | 2021-09-11 14:43 | PC.NURSE ---
[id number] received call from ER staff, states that surgery team needs paged r/t possible impacted food bolus per Dr Laguna request. 1435 Health Support Specialist notified to page Surgery Team. 1436 Dhruv returned call. 1437 Luna returned call. [address] Laguna notified that team is enroute.
--- NOTE | 2021-09-11 14:57 | PC.NURSE ---
Dr. Laguna at speaking with patient
--- NOTE | 2021-09-11 15:09 | PC.NURSE ---
pt changed into gown and all belongings were placed in a bag onto her bed. Her watch was given to her and he placed in her purse. No other needs at this time
--- NOTE | 2021-09-11 15:22 | PC.NURSE ---
Surgery team at bedside. Report given to BeckiRN
--- NOTE | 2021-09-11 16:05 | HMH.SCOPE ---
- Procedure: Date: 09/11/21 Patient Date of :: 1935 Procedure Performed:: Esophagogastroscopy with foreign body removal Indications:: Esophageal foreign body (impacted food particles) Performing Provider:: Iggy Laguna MD Referring Provider:: . Sedation:: Monitored anesthesia care Procedure:: After informed consent was obtained the patient was taken to the endoscopy suite. Sedation ensued after the patient was transferred to the left lateral decubitus position. Pulse, blood pressure, and oxygen saturation were monitored throughout the procedure. The endoscope was advanced to the distal esophagus. Infected food particles confirmed. A portion of the bolus was removed in a retrograde fashion. The remainder of the bolus was then advanced into the gastric lumen. The gastroscope was then advanced into the stomach. Retroflexion revealed a sliding hiatal hernia. The gastroscope was carefully removed and the patient was transferred to recovery in stable condition. Please see findings and specimens below for detail. Findings:: Impacted food particles at gastroesophageal junction. Inflammatory changes at gastroesophageal junction. Specimens:: Impacted food particles (not sent for pathologic evaluation) Recommendations:: Proton pump inhibition Clear liquid diet for 24 hours followed by full liquid diet Clinic follow-up in 1 week Complications:: No immediate Estimated blood obtained (mL): 0
--- NOTE | 2021-09-11 16:19 | P.PN_ITS ---
[facility] Anesthesia Checklist - Patient Identification Patient Identification: Arm Band, Verbal (Name & ) - Structural Data Admitted From: Emergency Dept Planned Operative Procedure/s: EGD Consent for Planned Operative Procedure(s) Verified: Yes Verified Documents: Surgical Consent - NPO Status Verified Time NPO: 00:00 - Airway Assessment C-Spine Mobility Assessed: Yes Dentition: Partials - Neurological Assessment Level of Consciousness: Awake, Alert, Appropriate - Anesthesia Plan Anesthesia Risk discussed: Yes ASA Class: III Anesthesia Type: MAC [facility] History I have reviewed the patient's past medical history: Yes Medical History: Reports:: Hypertension Denies:: Cancer, Diabetes Mellitus Type 1, Diabetes Mellitus Type 2, MRSA *Have you ever received a pneumonia vaccine?: Yes *Have you received a flu vaccine this season?: No Anesthesia experience/problems:: none Amputation: No Fractures: No - *Social History Smoking Status: Never smoker Alcohol Intake: never Alcohol Intake Frequency:: other Substance Use Type: denies use *Occupational Status:: other Housing: other *Travel in the last 8 weeks: None Family Hx:: Cancer, Coronary Artery Disease, Stroke, Diabetes
== END 2021-09-11 16:05 | disposition home or self-care (01) ==
LOC: UTC 12:41 → ER 13:04 → SDC 15:36
PROVIDERS: Emergency Provider Emergency Medicine; PCP Internal Medicine Adolescent Medicine; Visit Provider Surgery
PROC: 0DJ08ZZ Inspection of Upper Intestinal Tract, Via Natural or Artificial Opening Endoscopic (ICD-10-PCS; CPT 43235; principal; 2021-09-11 13:30)
DX: K22.2 Esophageal obstruction (principal); T18.128A Food in esophagus causing other injury, initial encounter; I10 Essential (primary) hypertension
CPT/HCPCS: 43247; 71046; 80053; 82150; 83690; 84484; 85025; 93005; J2405

== ENCOUNTER → 2021-09-23 07:38 | Outpatient (CLI) | payer MEDICARE, SELFPAY ==
--- NOTE | 2021-09-23 07:45 | FL_ITS ---
FINAL REPORT CLINICAL HISTORY: DYSPHAGIA FLUORO TIME-1.40 FINDINGS: ESOPHAGRAM HISTORY: . Dysphagia. PROCEDURE: The patient ingested barium. Effervescent crystals were also administered. Spot and overhead films were obtained. Fluoroscopy time: 1 minute 40 seconds. 17 radiographs were obtained. FINDINGS: . No esophageal stricture is identified. There is mild abnormal mucosa seen on the air shots which could be related to mild esophagitis. There is a moderate sliding type hiatal hernia with gastroesophageal reflux demonstrated to the thoracic inlet. A 13 mm barium Passed through the esophagus and into the stomach without delay. IMPRESSION: Moderate sized hiatal hernia with esophageal reflux. Mild abnormal mucosa which may be related to mild esophagitis. Endoscopic correlation recommended. Films reviewed , interpreted and dictated by Dr. Bullard. Transcribed by Wilmar Mckenna PA-C. Reviewed, Interpreted and Dictated by Bertrand Bullard III, MD Transcribed by MAURIZIO Tesfaye Authenticated and [facility]
== END ==
PROVIDERS: PCP Internal Medicine Adolescent Medicine; Visit Provider Surgery
DX: R13.10 Dysphagia, unspecified (principal)
CPT/HCPCS: 74220

== ENCOUNTER → 2022-03-08 10:37 | Outpatient (CLI) | payer MEDICARE, SELFPAY ==
--- NOTE | 2022-03-08 10:49 | XR_ITS ---
FINAL REPORT CLINICAL HISTORY: Acute right knee pain COMPARISON: None FINDINGS: RIGHT KNEE 3 views of the right knee were obtained. There is no acute fracture or dislocation. There is moderate tricompartmental osteoarthritic disease, greatest in the medial compartment. No joint effusion is noted. Soft tissues are unremarkable. IMPRESSION: Degenerative change with no acute bony abnormality. Reviewed, Interpreted and Dictated by Lai Lovelace MD Transcribed by Yola Galvan Authenticated and [facility]
[2022-03-08 12:11] LABS: Basophils # 0.1 K/mm3 (0-0.2); Basophils % 1.1 % (0.1-2.0); Eosinophils # 0.2 K/mm3 (0.0-0.4); Eosinophils % 2.2 % (0.1-12.0); Hemoglobin 12.7 g/dL (12.2-16.2); Lymphocytes # 4.3 K/mm3 (0.7-4.5); Mean Corpuscular HGB Conc 32.5 g/dL (31.8-35.4); Mean Corpuscular Hemoglobin 28.3 pg (27.0-31.2); Mean Corpuscular Volume 87.1 fl (81-99); Mean Platelet Volume 8.9 fl (7.4-10.4); Monocytes # 0.3 K/mm3 (0.1-1.0); Monocytes % 3.6 % (1.7-9.3); Neutrophils # 2.5 K/mm3 (1.8-7.8); Neutrophils % 34.1 % (37.0-80.0); Platelet Count 186 K/mm3 (142-424); Red Blood Count 4.47 M/mm3 (4.20-5.40); White Blood Count 7.3 K/mm3 (4.8-10.8)
[2022-03-08 12:13] LABS: MANUAL DIFFERENTIAL MANUAL DIFFERENTIAL (MANUAL DIFF)
[2022-03-08 12:54] LABS: Chloride 107 mmol/L (98-107); Potassium 4.3 mmoL/L (3.5-5.1); Sodium 141 mmol/L (136-145)
[2022-03-08 12:56] LABS: Alanine Aminotransferase 13 U/L (12-78); Alkaline Phosphatase 95 U/L (38-126); Aspartate Amino Transferase 21 U/L (14-36); Bilirubin,Total 0.4 mg/dl (0.2-1.3); Blood Urea Nitrogen 14 mg/dl (7-17); Estimated Glomerular Filt Rate 68 ml/min (>60); GFR (African American) 83 ML/MIN (>60)
[2022-03-08 12:57] LABS: Albumin Level 4.1 g/dl (3.5-5.0); Albumin/Globulin Ratio 1.7 (1.1-1.8); Anion Gap 12.3 mEq/L (5-15); Calcium 9.4 mg/dl (8.4-10.2); Carbon Dioxide 26 mmol/L (22.0-30.0); Chol/HDL Ratio 5.3 (1-3.5); Cholesterol 207 mg/dl (140-200); Globulin 2.4 g/dL (1.3-3.2); Glucose 144 mg/dl (74-100); HDL Cholesterol 39 mg/dl (40-60); Total Protein,Serum 6.5 g/dl (6.3-8.2); Triglycerides 206 mg/dl (30-150); VLDL Cholesterol 41 mg/dL (0-40)
[2022-03-08 13:08] LABS: Direct LDL Cholesterol 107.48 mg/dL (100-129)
[2022-03-08 13:18] LABS: Eosinophils % 2 % (0-3); Lymphocytes % 54 % (10-50); Monocytes % 2 % (2-9); Neutrophils % 42 % (42-76); Platelet Estimate Normal; RBC Morphology Normal; Total Cells Counted 100
[2022-03-08 13:30] LABS: Hemoglobin A1C 7.8 % (4.0-6.0)
== END ==
PROVIDERS: PCP Internal Medicine Adolescent Medicine; Visit Provider Internal Medicine Adolescent Medicine
DX: E11.9 Type 2 diabetes mellitus without complications (principal); E78.5 Hyperlipidemia, unspecified; M25.561 Pain in right knee; Z79.84 Long term (current) use of oral hypoglycemic drugs
CPT/HCPCS: 36415; 73562; 80053; 80061; 83036; 85007; 85025

== ENCOUNTER → 2022-10-17 12:22 | Outpatient (CLI) | payer MEDICARE, SELFPAY ==
--- NOTE | 2022-10-17 12:28 | XR_ITS ---
FINAL REPORT CLINICAL HISTORY: Rt anterior rib pain, nki FINDINGS: RIBS BILATERAL W/CHEST MIN 3 VIEWS The heart size is normal. The mediastinum is normal. The lungs are clear. There is no pneumothorax. There is mild irregularity of the right lateral 7th rib, nondisplaced fracture is not excluded. IMPRESSION: Possible fracture as above. Reviewed, Interpreted and Dictated by Bertrand Bullard III, MD Transcribed by Kaia Rodriguez Authenticated and [facility]
--- NOTE | 2022-10-17 12:28 | XR_ITS ---
FINAL REPORT CLINICAL HISTORY: SELENA THORACIC PAIN FINDINGS: THORACIC SPINE Two views demonstrate no acute fracture. There are moderate to severe degenerative changes with multilevel osteophytes. Note is made of mild rightward curvature. There is no malalignment. IMPRESSION: Degenerative changes as above. Reviewed, Interpreted and Dictated by Bertrand Bullard III, MD Transcribed by Kaia Rodriguez Authenticated and [facility]
== END ==
PROVIDERS: PCP Internal Medicine Adolescent Medicine; Visit Provider Internal Medicine Adolescent Medicine
DX: M54.6 Pain in thoracic spine (principal)
CPT/HCPCS: 71111; 72072

== ENCOUNTER 2023-04-20 15:18 | Emergency (ER) | payer MEDICARE, SELFPAY ==
[2023-04-20] VITALS (11 sets, daily range): BP systolic 159–206; BP diastolic 81–98; PULSE 66–73; RESP 14–18; TEMP 36.3–36.6; O2SAT 95–97; BMI 29.2
--- NOTE | 2023-04-20 15:35 | XR_ITS ---
FINAL REPORT CLINICAL HISTORY: dizziness, HTN COMPARISON: 10/17/2022 FINDINGS: SINGLE VIEW CHEST The heart is normal in size. The mediastinum is unremarkable. The lungs are clear. There is no pneumothorax. IMPRESSION: No acute process. Reviewed, Interpreted and Dictated by Bertrand Bullard III, MD Transcribed by Kaia Rodriguez Authenticated and [facility]
--- NOTE | 2023-04-20 15:51 | ECG_ITS ---
APPROVED REPORT Exam: Resting ECG HR:67 bpm ECG Measurements Heart Rate 67 AXES AK 194 P 56 QRSd 159 QRS -46 QT 459 T 12 QTc 475 Conclusion SINUS RHYTHM RIGHT BUNDLE BRANCH BLOCK [120+ ms QRS DURATION, UPRIGHT V1, 40+ ms S IN I/aVL/V4/V5/V6] LEFT ANTERIOR FASCICULAR BLOCK [QRS AXIS <= -45, QR IN I, RS IN II] VOLTAGE CRITERIA FOR LVH [MEETS CRITERIA IN ONE OF: R(aVL), S(V1), R(V5), R(V5/V6)+S(V1)] ABNORMAL ECG UNCONFIRMED REPORT Electronically signed by : Yossi Acosta MD 04/21/2023 08:13:09
--- NOTE | 2023-04-20 16:20 | ED_ITS ---
Discharge Plan Disposition Patient Disposition: Home, Self-Care Prescriptions Prescriptions: New candesartan-hydrochlorothiazid 16-12.5 mg tablet 1 tab PO DAILY Qty: 30 0RF Discontinued losartan 50 mg tablet 50 mg PO No Action metoprolol tartrate 100 mg tablet 100 mg PO esomeprazole magnesium [Nexium] 40 mg capsule,delayed release(DR/EC) 40 mg PO BID Referrals Follow up/Referrals: Fracisco Castañeda MD [Staff Physician] - See instructions Yossi Acosta MD [Primary Care Provider] - See instructions Activity Restrictions/Add. Instructions Additional Instructions/Restrictions: Discontinue taking losartan. Start taking candesartan/hydrochlorothiazide combination pill that was sent to [facility]. Call your family doctor to [facility] for this visit to the emergency department and schedule follow-up within 48 hours to ensure improvement. If you have any worsening of your condition or any other concerning signs or symptoms, return to the emergency department or your primary care doctor for further evaluation. Follow-up with cardiology, information listed here. Clinical Impressions Clinical Impression: Asymptomatic hypertension Discharge ED Provider: [facility] HPI General Chief complaint: Weakness Stated complaint: High BP dizziness Time Seen by Provider: 04/20/23 15:23 Mode of Arrival: Ambulatory Source of Information: Patient Limitations: No Limitations Description of Symptoms (Recalled from ER Triage Doc. by RN): pt c/o HTN since Sunday night. pt states the highest was 227/85. pt states when this started she became dizzy, saw bright spots and had weakness. Pt states her symptoms are still ongoing. pt states Sunday she had black tarry diarrhea and today yellow diarrhea. pt states she has also had some urinary frequency. pt thinks she may have had a TIA Wed. Her NIH is 0 History of Present Illness HPI narrative: 87-year-old female history of hypertension, hyperlipidemia, prediabetes presenting with hypertension. Patient has no other associated symptoms. She states that when she gets stressed her blood pressure goes up, her had a colonoscopy this past week and she was stressed about that. When she got stressed, blood pressure went up, she measured it it was in the 200s systolic. She began seeing spots, did not syncopized. Had no chest pain, shortness of breath, nausea or vomiting. She states that she was concerned at that time. Has not had any medication changes or primary care visit since that time. Related Data Home Medications Medication Instructions Recorded Confirmed esomeprazole magnesium 40 mg 40 mg PO BID 09/16/21 11/23/21 capsule,delayed release (Nexium) metoprolol tartrate 100 mg tablet 100 mg PO 09/28/21 11/23/21 Previous Rx's Medication Instructions Recorded candesartan 16 1 tab PO DAILY #30 tabs 04/20/23 mg-hydrochlorothiazide 12.5 mg tablet Allergies Allergy/AdvReac Type Severity Reaction Status Date / Time No Known Allergies Allergy Verified 11/23/21 08:59 [facility] Disclaimer: The information contained in this section may have been updated after the patient was seen, as this information can be updated by other users. Social History Smoking Status: Never smoker alcohol intake: never substance use type: denies use current occupational status: other Travel in the last 8 weeks: None housing: other ROS Obtained: Yes All systems reviewed & no additional complaints except as documented Physical Exam General General appearance: alert and in no apparent distress Head Head exam: atraumatic and normocephalic Eye Eye exam: Present normal appearance, PERRL and EOMI ENT ENT exam: Present mucous membranes moist Neck Neck exam: Present normal inspection, full ROM and trachea midline Respiratory Respiratory exam: Absent respiratory distress, wheezes, stridor, accessory muscle use or prolonged expiratory phase Cardiovascular Cardiovascular exam: Present normal rhythm Abdominal Exam Abdominal exam: Present soft; Absent distention, tenderness, guarding, rebound or rigidity Extremities Exam Extremities exam: Absent edema Neurological Exam Neurological exam: Present alert, oriented X3, CN II-XII intact and normal gait; Absent motor sensory deficit Skin Skin exam: Present warm and dry; Absent diaphoresis or erythema Medical Decision Making Medical Records Medical records reviewed: Yes I reviewed the patient's medical records. Stephen Inquiry Pt receiving controlled substance: No Stephen was queried for this patient: No Vital Signs: 04/20/23 15:38 04/20/23 16:31 04/20/23 15:31 Temperature 97.4 F L Temperature Source Oral Pulse Rate 69 Pulse Rate [Left] 71 Respiratory Rate 18 Blood Pressure 159/87 H 203/92 H Blood Pressure [Right Arm] 203/92 H Blood Pressure Mean [Right Arm] 129 Blood Pressure Source [Right Arm] Automatic Cuff Blood Pressure Position [Right Arm] Sitting 02 Sat by Pulse Oximetry 97 96 Oxygen Delivery Method Room Air 04/20/23 16:00 04/20/23 16:30 04/20/23 16:33 Temperature Temperature Source Pulse Rate 68 66 69 Pulse Rate [Left] Respiratory Rate Blood Pressure 206/84 H 159/87 H 187/81 H Blood Pressure [Right Arm] Blood Pressure Mean [Right Arm] Blood Pressure Source [Right Arm] Blood Pressure Position [Right Arm] 02 Sat by Pulse Oximetry 95 96 96 Oxygen Delivery Method Room Air Room Air Room Air 04/20/23 17:00 04/20/23 17:30 04/20/23 17:41 Temperature Temperature Source Pulse Rate 70 72 69 Pulse Rate [Left] Respiratory Rate Blood Pressure 205/89 H 195/89 H 193/98 H Blood Pressure [Right Arm] Blood Pressure Mean [Right Arm] Blood Pressure Source [Right Arm] Blood Pressure Position [Right Arm] 02 Sat by Pulse Oximetry 97 97 95 Oxygen Delivery Method Room Air Room Air Room Air 04/20/23 18:00 04/20/23 18:12 Temperature 98 F Temperature Source Pulse Rate 73 71 Pulse Rate [Left] Respiratory Rate 14 Blood Pressure 188/85 H 188/85 H Blood Pressure [Right Arm] Blood Pressure Mean [Right Arm] Blood Pressure Source [Right Arm] Blood Pressure Position [Right Arm] 02 Sat by Pulse Oximetry 96 Oxygen Delivery Method Room Air Lab Data Lab Results 04/20/23 15:57: WBC 7.7, RBC 4.68, Hgb 13.7, Hct 40.1, MCV 85.7, MCH 29.2, MCHC 34.1, RDW 14.2, Plt Count 186, MPV 8.6, Neut % (Auto) 34.6 L, Lymph % (Auto) 58.9 H, [place] % (Auto) 3.7, Eos % (Auto) 1.9, Baso % (Auto) 0.8, Neut # (Auto) 2.7, Lymph # (Auto) 4.6 H, [place]ner # (Auto) 0.3, Eos # (Auto) 0.2, Baso # (Auto) 0.1, Total Counted 100, Neutrophils % (Manual) 40 L, Lymphocytes % (Manual) 55 H , Monocytes % (Manual) 4, Eosinophils % (Manual) 1, Platelet Estimate Normal, RBC Morphology Normal, Sodium 140, Potassium 3.1 L, Chloride 105, Carbon Dioxide 30, Anion Gap 8.1, BUN 11, Creatinine 0.70, Estimated Creat Clear 44, Estimated GFR 80, Est GFR ( Amer) 96, Glucose 152 H, Calcium 9.5, Magnesium 1.7, Total Bilirubin 0.5, AST 27, ALT 21, Alkaline Phosphatase 90, Troponin I < 0.01, NT-Pro-B Natriuret Pep 1360 H, Total Protein 7.3, Albumin 4.4, Globulin 2.9, Albumin/Globulin Ratio 1.5 04/20/23 15:57 04/20/23 15:57 Orders (Tests/Meds): ED MEDICATIONS Discontinued Medications Generic Name Dose Route Start Last Admin Trade Name Freq PRN Reason Stop Dose Admin Labetalol HCl 10 mg 04/20/23 16:12 04/20/23 16:31 Labetalol 20mg/4ml Syringe IV 04/20/23 16:13 Not Given ONCE ONE Ondansetron HCl 4 mg 04/20/23 16:32 04/20/23 16:38 Ondansetron 4mg/2ml Vial IV 04/20/23 16:33 4 mg ONCE ONE Administration Potassium Chloride 60 meq 04/20/23 16:32 04/20/23 16:38 Potassium Chloride 20meq Tab PO 04/20/23 16:33 60 meq ONCE ONE Administration ORDERS Category Date Time Status CXR --portable [XR chest portable] Stat Exams 04/20/23 15:35 Completed Brain Natriuretic Peptide Stat Lab 04/20/23 15:57 Completed CBC w/Auto Diff [Complete Blood Count Auto Diff] Stat Lab 04/20/23 15:57 Completed CMP [Comprehensive Metabolic Panel] Stat Lab 04/20/23 15:57 Completed Magnesium Stat Lab 04/20/23 15:57 Completed Trop I [Troponin I] Stat Lab 04/20/23 15:57 Completed ECG initial Besson Routine Y 04/20/23 15:51 Completed HEART Score History (anamnesis): Slightly suspicious ECG: Non-specific disturbance Age: >65 years Risk factors: 3 or more risk factors Troponin: </= normal limit HEART Score: 5 Medical Decision Narrative: 87-year-old female history of hypertension, hyperlipidemia, prediabetes presenting with hypertension. Patient has no other associated symptoms. She states that when she gets stressed her blood pressure goes up, her had a colonoscopy this past week and she was stressed about that. When she got stressed, blood pressure went up, she measured it it was in the 200s systolic. She began seeing spots, did not syncopized. Had no chest pain, shortness of breath, nausea or vomiting. She states that she was concerned at that time. Has not had any medication changes or primary care visit since that time. History was obtained via conversation with patient. On arrival, patient hemodynamically stable, alert, oriented x4, appropriate, GCS 15, moving all extremities spontaneously, pupils equal and reactive to light. Full physical exam performed and significant for NIHSS 0. Not currently c omplaining of any symptoms. Cardiac exam with right upper sternal border murmur concerning for aortic stenosis versus flow murmur in the setting of moderate hypertension systolic 220 over diastolic 87. No lower extremity edema. Abdomen soft, nontender, nondistended.. Differential includes hypertensive urgency, arrhythmia,. Patient was given 10 mg labetalol IV for symptomatic management and correction of underlying abnormalities. Workup independently interpreted and significant for nonactionable CBC or chemistry. Troponin negative. BNP elevated 1360. Patient was hypokalemic, given 60 mill equivalent p.o. potassium with Zofran. See radiology read for full review of final results. Independent interpretation of EKG shows sinus rhythm 67 beats a minute with nonspecific T wave changes without reciprocal change. Right bundle branch morphology. Widened QRS, MN, QT intervals within normal limits. Heart score 5. On reevaluation, patient still remains asymptomatic, blood pressure improved from arrival. Given patient presentation, workup, history, this most likely represents asymptomatic hypertension, likely diastolic dysfunction as well. Patient's losartan was changed to candesartan/hydrochlorothiazide combination pill. She is agreeable to this plan. Patient was also given outpatient cardiology follow-up. Because patient at baseline without signs or symptoms of clinical decompensation, deemed appropriate for discharge. Results were relayed to patient who voiced understanding and were agreeable to outpatient management and follow up. At the time of discharge the patient was hemodynamically stable, tolerating PO, and mobilizing appropriately. Critical Care Critical Care Time Critical Care Time: No
[2023-04-20 16:21] LABS: Chloride 105 mmol/L (98-107)
[2023-04-20 16:22] LABS: Potassium 3.1 mmoL/L (3.5-5.1); Sodium 140 mmol/L (136-145)
[2023-04-20 16:24] LABS: Alanine Aminotransferase 21 U/L (12-78); Aspartate Amino Transferase 27 U/L (14-36); Blood Urea Nitrogen 11 mg/dl (7-17); Creatinine Clearance Estimated 44 mL/min (50-200); Estimated Glomerular Filt Rate 80 ml/min (>60); GFR (African American) 96 ML/MIN (>60)
[2023-04-20 16:25] LABS: Albumin Level 4.4 g/dl (3.5-5.0); Albumin/Globulin Ratio 1.5 (1.1-1.8); Alkaline Phosphatase 90 U/L (38-126); Anion Gap 8.1 mEq/L (5-15); Bilirubin,Total 0.5 mg/dl (0.2-1.3); Calcium 9.5 mg/dl (8.4-10.2); Carbon Dioxide 30 mmol/L (22.0-30.0); Globulin 2.9 g/dL (1.3-3.2); Glucose 152 mg/dl (74-100); Magnesium 1.7 mg/dl (1.6-2.3); Total Protein,Serum 7.3 g/dl (6.3-8.2)
[2023-04-20] MEDS: ONDANSETRON 4MG/2ML VIAL 4 MG IV (16:38)
[2023-04-20] MEDS: POTASSIUM CHLORIDE 20MEQ TAB 60 MEQ PO (16:38)
[2023-04-20 16:42] LABS: NT Pro Brain Natriuretic Pep. 1360 pg/mL (0-450); Troponin I < 0.01 ng/ml (0.00-0.034)
[2023-04-20 16:46] LABS: Basophils # 0.1 K/mm3 (0-0.2); Basophils % 0.8 % (0.1-2.0); Eosinophils # 0.2 K/mm3 (0.0-0.4); Eosinophils % 1.9 % (0.1-12.0); Hematocrit 40.1 % (37.0-47.0); Hemoglobin 13.7 g/dL (12.2-16.2); Lymphocytes # 4.6 K/mm3 (0.7-4.5); Lymphocytes % 58.9 % (10-50); Mean Corpuscular HGB Conc 34.1 g/dL (31.8-35.4); Mean Corpuscular Hemoglobin 29.2 pg (27.0-31.2); Mean Corpuscular Volume 85.7 fl (81-99); Mean Platelet Volume 8.6 fl (7.4-10.4); Monocytes # 0.3 K/mm3 (0.1-1.0); Monocytes % 3.7 % (1.7-9.3); Neutrophils # 2.7 K/mm3 (1.8-7.8); Neutrophils % 34.6 % (37.0-80.0); Platelet Count 186 K/mm3 (142-424); Red Blood Count 4.68 M/mm3 (4.20-5.40); Red Cell Distribution Width 14.2 % (11.5-17.5); White Blood Count 7.7 K/mm3 (4.8-10.8)
[2023-04-20 16:49] LABS: MANUAL DIFFERENTIAL MANUAL DIFFERENTIAL (MANUAL DIFF)
[2023-04-20 17:40] LABS: Eosinophils % 1 % (0-3); Lymphocytes % 55 % (10-50); Monocytes % 4 % (2-9); Neutrophils % 40 % (42-76); Platelet Estimate Normal; RBC Morphology Normal; Total Cells Counted 100
== END 2023-04-20 18:16 | disposition home or self-care (01) ==
PROVIDERS: Emergency Provider Emergency Medicine; PCP Internal Medicine Adolescent Medicine
DX: E87.6 Hypokalemia (principal); R94.31 Abnormal electrocardiogram [ECG] [EKG]; I10 Essential (primary) hypertension; E78.5 Hyperlipidemia, unspecified
CPT/HCPCS: 71045; 80053; 83735; 83880; 84484; 85007; 85025; 93005; 96361; 96374; 99284; J2405

== ENCOUNTER 2023-05-07 12:35 | Outpatient (CLI) | payer MEDICARE, SELFPAY ==
--- NOTE | 2023-05-07 12:36 | NM_ITS ---
APPROVED REPORT Exam: Nuclear Stress Test Indication: soa Patient Location: Outpatient Stress Tech: Susie Davila [place] Tech:Tonya Acuna, SAMMYT, RT (R)(N) Ht: 5 ft 0 in Wt: 145 lbs Bra Size: 40c HR: 66 bpm BP: 149/68 mmHg BSA: 1.63 m2 Rhythm: NSR TID: 1.39 History: dyspnea Procedure: Patient received 0.4 mg of intravenous Lexiscan, resting heart rate 66 bpm, resting blood pressure 149/68 mmHg, with Lexiscan maximum heart rate achieved was 82 bpm which is 85 % of the maximum predicted heart rate and blood pressure was 149/68 mmHg. With Lexiscan, patient denied any complaint of chest pain. Cardiac Stress and Resting SPECT Images: Cardiac Stress and Resting SPECT images were obtained using technetium 99m Myoview 32.8 mCi stress and 10.13 mCi at rest. Resting and stress imaging in supine and prone positions demonstrate no evidence of fixed or reversible perfusion defects. There is increased transient ischemic dilatation ratio (1.39), suggestive of possible multivessel disease or balanced ischemia. Gated imaging demonstrates normal global and regional LV systolic function. LVEF is calculated at 74%. Conclusion: No evidence of fixed or reversible perfusion defects. There is increased transient ischemic dilatation ratio (1.39), suggestive of possible multivessel disease or balanced ischemia. Gated imaging demonstrates normal global and regional LV systolic function. LVEF is calculated at 74%. Electronically signed by : Rosa Maria Zapata MD 05/08/2023 18:16:49
--- NOTE | 2023-05-07 13:49 | CA_ITS ---
APPROVED REPORT EXAM: Comprehensive 2D, Doppler, and color-flow Echocardiogram Research Librarian: Shakila Asencio CRT Ht: 5 ft 0 in Wt: 153lbs BSA: 1.67 BP: 142/64 mmHg Indications: Hypertension/HDD 2D Dimensions LA Volume 69.00 mL LA Volume Index 40.40 mL/m2 (M/F) 16-34 M-Mode Dimensions RVDd 2.71 cm (0.9-2.6) LA Diam 4.24 cm (1.9-4.0) LVDd 3.87 cm (3.5-5.7) LVDs 2.53 cm (3.5-5.7) IVSd 1.57 cm (0.6-1.1) PWd 0.93 cm (0.6-1.1) EF (Teich) 64.50% FS 34.60% EDV (Teich) 64.70 mL TAPSE 0.89 (<1.7) ESV (Teich) 23.00 mL LV Diastology E Decel Time 537 (160-240 msec) E/A Ratio 0.57 MED A' 8.10 cm/s LAT A' 7.80 cm/s Aortic Valve AIMEE Index 0.86 cm2/m2 AoV Peak Jeffery. 209.0 (50-130 cm/s) AO Peak GR. 17.40 mmHg AO Mean GR. 11.40 (<5 mmHg) AO VTI 42.2 (18-25 cm) AIMEE (VTI) 1.47 (2.5-4.5 cm2) Mitral Valve MV E Max Jeffery. 85.0 (40-130 cm/s) MV A Velocity 147.0 (40-130 cm/s) E/A Ratio 0.57 MV PHT 157.0 ms Pulmonary Valve PV Peak Velocity 117.0 (50-150 cm/s) Tricuspid Valve TR P. Velocity 323.00 cm/s RAP Estimate 10.00 mmHg RVSP 51.70 mmHg Left Ventricle The left ventricle is normal size. The left ventricular systolic function is hyperdynamic. There is increased LV wall thickness. An increased intracavitary gradient is present. There is normal LV segmental wall motion. LVEF is 70%. Right Ventricle The right ventricle is normal size. The right ventricular systolic function is normal. Atria Left atrium is mildly dilated. Right atrium is mildly dilated. There is no Doppler evidence of interatrial shunt. Aortic Valve The aortic valve leaflets are mildly thickened. Aortic sclerosis, but no evidence of aortic stenosis. Trace aortic regurgitation. Mitral Valve Cordal systolic anterior motion (Cordal PHILLY) is present. The mitral valve leaflets are mildly thickened. No evidence of mitral valve stenosis. Trace mitral regurgitation. Tricuspid Valve The tricuspid valve leaflets are thin and pliable. Moderate tricuspid regurgitation. RVSP is 40-45 mmHg. Pulmonic Valve The pulmonary valve is normal in structure. Mild pulmonic regurgitation. Great Vessels The aortic root is normal in size. The ascending aorta is not well visualized. IVC is normal in size and collapses >50% with inspiration. Pericardium There is no pericardial effusion. Other Information Study Quality: Fair Conclusion Hyperdynamic LV systolic function (LVEF 70%). There is increased LV wall thickness. An increased intracavitary gradient is also present. Cordal systolic anterior motion (cordal PHILLY) of the mitral valve is present. Normal RV size and function. Moderate TR. RVSP is 40-45 mmHg. If clinically indicated, further evaluation for infiltrative disease may be suggested with cardiac MRI (HCM protocol) in the setting of increased LV wall thickness, presence of intracavitary gradient, and cordal PHILLY. Electronically signed by : Rosa Maria Zapata MD 05/09/2023 22:34:28
[2023-05-07] MEDS: SODIUM CHLORIDE 0.9% 10ML SYR (RAD ONLY) 10 ML IV ×2 (14:17)
[2023-05-07] MEDS: ISOTOPE MYOVIEW (PER STUDY) 1 DOSE IV (14:17)
[2023-05-07] MEDS: REGADENOSON 0.4MG/5ML SYRINGE 0.400000000000000022 MG IV (14:17)
--- NOTE | 2023-05-07 14:40 | CA_ITS ---
APPROVED REPORT Exam: Pharmacologic Technologist: Susie Broderick, Ht: 5 ft 0 in Wt: 153 lbs BSA: 1.67 m2 HR: 68 bpm BP: 149/68 mmHg Rhythm: NSR Medical History Medications: Pravastatin,,,,, Metoprolol Tartrate,,,,, Nexium,,,,, Tylenol,,,,, Aldactone,,,,, JaRDiance,,,,, NifEDIPINE ER,,,,, CaNDESARTAN-hctz,,,,, Stress Test Details Test: LEXISCAN Reason for pharmacologic stress test: physical limitation. HR Resting HR: 66 bpm Max Heart Rate (APMHR): 135 bpm Max HR Achieved: 82 bpm Target HR (85% APMHR): 115 bpm % of APMHR: 61 Recovery HR: 76 bpm BP Resting BP: 149.0/68.0 mmHg Max BP: 149.0/68.0 mmHg Recovery BP: 119.0/76.0 mmHg ECG Resting ECG: NSR Stress ECG: No significant ST changes Arrhythmia: None Clinical Exercise duration: 04:00 min Highest Stage Achieved: Stress ECG Conclusion Symptoms: SOB with Lexiscan. Chest pain with Lexiscan. Arrhythmias/Ectopy: None ST-T Changes: None Conclusion: Unremarkable ECG portion of Lexiscan stress test. Myoview images are reported separately. Test Summary REST . . . . . . . Resting REST 04:47 . . 66 . 149/ 68 . . Stage 1 . . . . . . . Cardiolite injected Stage 1 01:00 . . 76 . . . . Stage 2 01:00 . . 80 . 106/ 59 . . Stage 3 01:00 . . 77 . 131/ 62 . . Stage 4 01:00 . . 75 . 122/ 65 . Stop exercise at 04:00 RECOVERY 01:00 . . 76 . . . . RECOVERY 02:00 . . 79 . 103/ 52 . . RECOVERY 02:55 . . 75 . 119/ 64 . . Electronically signed by : Rosa Maria Zapata MD 05/08/2023 18:15:01
== END 2023-05-07 23:59 ==
LOC: RAD 12:36
PROVIDERS: PCP Internal Medicine Adolescent Medicine; Visit Provider Nurse Practitioner Family
DX: E87.6 Hypokalemia (principal); I10 Essential (primary) hypertension; R06.00 Dyspnea, unspecified; R42 Dizziness and giddiness; R53.83 Other fatigue; R60.0 Localized edema; R79.89 Other specified abnormal findings of blood chemistry; R94.31 Abnormal electrocardiogram [ECG] [EKG]
CPT/HCPCS: 78452; 93017; 93018; 93306; A9502; J2785

== ENCOUNTER 2023-05-24 11:34 | Observation (INO) | payer MEDICARE, SELFPAY ==
[2023-05-24] VITALS (20 sets, daily range): BP systolic 99–170; BP diastolic 53–99; PULSE 65–85; RESP 15–20; TEMP 36.6–36.9; O2SAT 90–98; BMI 29.2; BMI 30.2
--- NOTE | 2023-05-24 07:05 | IR_ITS ---
APPROVED REPORT Patient Location: Outpatient PROCEDURES Left heart catheterization Left ventriculogram Selective coronary angiogram Intravascular lithotripsy to the ostial proximal and distal dominant right coronary Drug-eluting stent deployment to the ostial proximal distal dominant right coronary artery in a contiguous manner INDICATION Coronary artery disease, Extensive calcification Informed consent was obtained prior to the procedure. COMPLICATIONS NONE Estimated Blood Loss: LESS THAN 10 ML TECHNIQUE One percent lidocaine was used to anesthetize the right groin. The right femoral artery was accessed via the Seldinger technique. A 4-Spanish sheath was placed in the right femoral artery. The JL-4 and JR-4 catheter was also used to perform left heart catheterization left ventriculogram and selective coronary angiogram. At the end of the diagnostic angiogram therapeutic heparin was administered giving a therapeutic ACT and the 4 Spanish sheath was exchanged for a 6 Spanish sheath. An 3 DRC guide catheter was placed in the right coronary artery followed by Choice PT extra-support wire. Predilatation with a 3.5 x 12 mm noncompliant balloon was used with the addition of a guide liner. Following this a 4 mm x 12 mm intravascular lithotripsy balloon was deployed at 4 dorota with 20 pulsations delivered distally reducing the severe calcified stenosis. The balloon was pulled back and deployed ostially at 5 dorota with 10 pulsations delivered. Following this a 4 mm x 38 mm Shin frontier stent was deployed distally at 20 dorota reducing the critical stenosis. An additional 4 mm x 38 mm Shin frontier stent was placed proximal to the for stent yet still overlapping the stent extending back into the right coronary cusp and fully covering the ostium and deployed at 20 dorota. The balloon was advanced and deployed at 20 dorota to mesh the 2 stents. Excellent angiograph results were obtained. Copious contrast was used. At the end of the procedure the apparatus was removed the groin is reprepped closure change sheath was removed and hemostasis was achieved using Perclose device patient was transferred to the postop holding in stable condition ANGIOGRAPHIC RESULTS The left main artery Normal The left anterior descending artery Has proximal calcified 70% stenosis with a concentric 80% stenosis followed by additional mid vessel 40% stenoses The circumflex artery Nondominant and has proximal 20% stenosis with an eccentric calcified 80% proximal stenosis. Distally there are diffuse 30% stenoses The right coronary artery Large dominant has severe ostial calcified stenosis which causes significant dampening with both a 4 Spanish and 6 Spanish catheter suggesting the stenosis is in excess of 80%. There is additional 30% calcifications throughout the proximal and mid segment with an additional concentric calcified 80% distal stenosis. There are additional 30% stenoses throughout the distal right coronary artery and 40% proximal stenosis in the posterior descending artery proximal and mid large posterior lateral ventricular branch The [facility] ventriculogram reveals Hyperdynamic with apical to mid cavitary obliteration ejection fraction in excess of 80% The left ventricular end-diastolic pressure 20 mmHg IMPRESSION Critical dominant right coronary disease as described above with successful intravascular lithotripsy followed by drug-eluting stent deployment to the ostial proximal mid and distal dominant right coronary reducing the critical disease to less than 10% with 2 contiguous drug-eluting stents Persistent severe proximal LAD disease as well as proximal large circumflex artery disease 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 Plavix 75 mg daily plus aspirin 81 mg daily 2. Patient is elderly and underwent complex intervention with copious contrast. IV fluids will be given and patient will be admitted to the hospital 3. Chemistry panel in the morning along with CBC 4. In 2 weeks patient be brought back to the [facility] will undergo staged stenting of the proximal LAD and proximal circumflex artery both preceded by intravascular lithotripsy 5. Recommend starting patient on verapamil due to hyperdynamic ventricle and uptitrate as tolerated 6. Cardiac rehabilitation after staged procedure is complete 7. Avoidance of tobacco products Electronically signed by : Fracisco Castañeda MD 05/24/2023 15:00:05
[2023-05-24 08:48] LABS: Basophils # 0.1 K/mm3 (0-0.2); Basophils % 1.4 % (0.1-2.0); Eosinophils # 0.2 K/mm3 (0.0-0.4); Eosinophils % 2.3 % (0.1-12.0); Hematocrit 38.9 % (37.0-47.0); Hemoglobin 12.7 g/dL (12.2-16.2); Lymphocytes # 5.2 K/mm3 (0.7-4.5); Lymphocytes % 51.1 % (10-50); Mean Corpuscular HGB Conc 32.7 g/dL (31.8-35.4); Mean Corpuscular Hemoglobin 29.9 pg (27.0-31.2); Mean Corpuscular Volume 91.5 fl (81-99); Mean Platelet Volume 9.3 fl (7.4-10.4); Monocytes # 0.4 K/mm3 (0.1-1.0); Monocytes % 4.1 % (1.7-9.3); Neutrophils # 4.2 K/mm3 (1.8-7.8); Neutrophils % 41.2 % (37.0-80.0); Platelet Count 173 K/mm3 (142-424); Red Blood Count 4.25 M/mm3 (4.20-5.40); Red Cell Distribution Width 14.3 % (11.5-17.5); White Blood Count 10.2 K/mm3 (4.8-10.8)
[2023-05-24 08:52] LABS: MANUAL DIFFERENTIAL MANUAL DIFFERENTIAL (MANUAL DIFF)
[2023-05-24 09:08] LABS: Anion Gap 10.5 mEq/L (5-15); Blood Urea Nitrogen 23 mg/dl (7-17); Calcium 9.6 mg/dl (8.4-10.2); Carbon Dioxide 26 mmol/L (22.0-30.0); Chloride 105 mmol/L (98-107); Creatinine Clearance Estimated 37 mL/min (50-200); Estimated Glomerular Filt Rate 43 ml/min (>60); GFR (African American) 52 ML/MIN (>60); Glucose 163 mg/dl (74-100); Potassium 4.5 mmoL/L (3.5-5.1); Sodium 137 mmol/L (136-145)
[2023-05-24] MEDS: HEPARIN 1,000 UNITS/500ML NS (CATH LAB) 3000 UNIT IV (10:56)
[2023-05-24] MEDS: LIDOCAINE 1% 10ML MDV 20 ML IJ (10:56)
[2023-05-24] MEDS: VERAPAMIL 2.5MG/ML 2ML VIAL 2.5 MG IV (10:56)
[2023-05-24] MEDS: 0.9 % SODIUM CHLORIDE 500 ML 25 ML IV (10:57)
[2023-05-24] MEDS: NITROGLYCERIN 800MCG/8ML SYR (CATH LAB) 800 MCG IA (10:57)
[2023-05-24] MEDS: HEPARIN 1,000 UNITS/ML 10ML VIAL (CATH LAB) 10000 UNIT IV (10:57)
[2023-05-24 11:01] LABS: Eosinophils % 2 % (0-3); Lymphocytes % 42 % (10-50); Monocytes % 11 % (2-9); Neutrophils % 43 % (42-76); Total Cells Counted 100
[2023-05-24] MEDS: FENTANYL 100MCG/2ML VIAL 50 MCG IV (11:02)
[2023-05-24] MEDS: MIDAZOLAM HCL 1MG/1ML 5ML VIAL 1 MG IV (11:02)
[2023-05-24 11:03] LABS: Platelet Estimate Normal; RBC Morphology Normal
--- NOTE | 2023-05-24 11:46 | P.HP_ITS ---
History of Present Illness *Admission Date: 05/24/23 *Reason for visit:: chest pain, post cath *History of present illness: 87-year-old female with DVT, hypertension heart failure preserved ejection and. Brought in for elective heart cath that she has been having dyspnea with exertion, fatigue, chest pressure for a few weeks now. Was seen in the [facility] today for elective procedure. Extensive work done with placement of stents. Given extent of work, right femoral approach, and ALONSO, request admission for monitoring overnight. Patient denies any active chest pain at this time. Stable on room air. No nausea, vomiting, diarrhea, confusion. Laying flat per protocol given approach in right inguinal region. Boyfriend at bedside, patient states she would like her daughter and significant other to be her surrogate decision makers. No other acute complaints at this time. [facility] Disclaimer: The information contained in this section may have been updated after the patient was seen, as this information can be updated by other users. Medical History CHF (congestive heart failure) Abnormal electrocardiogram [ECG] [EKG] Family History Other No significant family history Social History Smoking Status: Never smoker alcohol intake: never substance use type: denies use current occupational status: other Travel in the last 8 weeks: None housing: other Review of Systems Review of Systems Review of systems (narrative): 14 point review of systems performed, pertinent positives and negatives as per [facility] Meds Home Medications and Allergies Home Medications Medication Instructions Recorded Confirmed Type esomeprazole magnesium 40 mg 40 mg PO BID 09/16/21 05/24/23 History capsule,delayed release (Nexium) candesartan 16 1 tab PO DAILY #30 tabs 04/20/23 05/24/23 Rx mg-hydrochlorothiazide 12.5 mg tablet acetaminophen 500 mg tablet 500 mg PO Q6H PRN Pain 04/24/23 05/24/23 History (Tylenol Extra Strength) metoprolol tartrate 100 mg tablet 50 mg PO BID 04/24/23 05/24/23 History nifedipine 30 mg tablet,extended 30 mg PO DAILY 04/24/23 05/24/23 History release pravastatin 40 mg tablet 40 mg PO DAILY 04/24/23 05/24/23 History aspirin 81 mg tablet,delayed 81 mg PO DAILY #30 tabs 05/23/23 05/24/23 Rx release (Adult Aspirin Regimen) New Prescriptions to Start Prescriptions: Allergies Allergy/AdvReac Type Severity Reaction Status Date / Time diphenhydramine AdvReac Agitated Verified 05/24/23 09:32 [From [facility]] Exam Data for Last 24 hours Vital signs and Labs for Last 24 Hours: Temp Pulse Resp BP Pulse Ox O2 Del Method 98.4 F 65 18 99/54 L 96 Room Air 05/24/23 08:30 05/24/23 08:39 05/24/23 08:30 05/24/23 08:30 05/24/23 08:30 05/24/23 08:30 Laboratory Results - last 24 hr 05/24/23 08:41: WBC 10.2, RBC 4.25, Hgb 12.7, Hct 38.9, MCV 91.5, MCH 29.9, MCHC 32.7, RDW 14.3, Plt Count 173, MPV 9.3, Neut % (Auto) 41.2, Lymph % (Auto) 51.1 H, Frio % (Auto) 4.1, Eos % (Auto) 2.3, Baso % (Auto) 1.4, Neut # (Auto) 4.2, Lymph # (Auto) 5.2 H, Frio # (Auto) 0.4, Eos # (Auto) 0.2, Baso # (Auto) 0.1, Total Counted 100, Neutrophils % (Manual) 43, Band Neutrophils % 2.0, Lymphocytes % (Manual) 42, Monocytes % (Manual) 11 H, Eosinophils % (Manual) 2, Platelet Estimate Normal, RBC Morphology Normal, Sodium 137, Potassium 4.5, Chloride 105, Carbon Dioxide 26, Anion Gap 10.5, BUN 23 H, Creatinine 1.20 H, Estimated Creat Clear 37, Estimated GFR 43 L, Est GFR ( Amer) 52 L, Glucose 163 H, Calcium 9.6 I & O for Last 24 hours: Intake & Output 05/21/23 05/22/23 05/23/23 05/24/23 23:59 23:59 23:59 23:59 Weight 68.039 kg Constitutional Constitutional: no acute distress, obese and cooperative *Routine HEENT Exam Head: Present normocephalic Eye: Present EOMI and PERRL ENT: Present mucous membranes moist *Routine Neck Exam Neck: Present supple; Absent lymphadenopathy *Routine Respiratory Exam Respiratory: Present CTA bilaterally; Absent rhonchi, wheezes or crackles *Routine Cardiovascular Exam Cardiovascular: Present RRR *Routine Abdominal Exam Abdominal: Present soft and normoactive bowel sounds; Absent tenderness *Routine Rectal Exam Rectal:: deferred *Routine Genitalia Exam Genitalia:: deferred *Routine Extremities Exam Extremities: Absent cyanosis, clubbing or edema Comments: Right femoral insertion site clean, dry, and intact *Routine Skin Exam Skin: Present intact and warm; Absent rash *Routine Neurological Exam Neurological: Present alert, oriented X3 and moving all extremities; Absent altered mental status Assessment and Plan *Assessment and plan (1) ALONSO (acute kidney injury): Status: Acute Category: Medical Code(s): N17.9 - Acute kidney failure, unspecified (2) Atypical angina: Status: Acute Category: Medical Code(s): I20.89 - Other forms of angina pectoris (3) Labile hypertension: Status: Acute Category: Medical Code(s): R09.89 - Other specified symptoms and signs involving the circulatory and respiratory systems (4) CHF (congestive heart failure): Status: Acute Qualifiers: Heart failure type: unspecified Heart failure chronicity: unspecified Qualified Code(s): I50.9 - Heart failure, unspecified Category: Medical Code(s): I50.9 - Heart failure, unspecified (5) Hypertension: Status: Acute Qualifiers: Hypertension type: essential hypertension Qualified Code(s): I10 - Essential (primary) hypertension Category: Medical Code(s): I10 - Essential (primary) hypertension (6) CAD (coronary artery disease): Status: Acute Category: Medical Code(s): I25.10 - Atherosclerotic heart disease of [place] coronary artery without angina pectoris (7) GERD (gastroesophageal reflux disease): Status: Acute Category: Medical Code(s): K21.9 - Gastro-esophageal reflux disease without esophagitis (8) HLD (hyperlipidemia): Status: Acute Category: Medical Code(s): E78.5 - Hyperlipidemia, unspecified Plan 87-year-old female with history of hypertension and heart failure preserved ejection fraction. Brought in electively for heart cath given chest pain and dyspnea with exertion. Discussed case with cardiology, had extensive procedure necessitating lithotripsy and stenting. Request observation overnight with serial labs in the morning to monitor kidney function. Medicine agreed to admit. Problems addressed as follows: CAD Hypertension Hyperlipidemia Heart failure with preserved ejection fraction -Reviewed chart, echo from earlier this month with elevated RVSP. EF preserved. -Status post left heart cath, see cath report for full details. Stents placed. Continue aspirin and Plavix daily -Cardiology consulted, appreciate their recommendations. Monitor on telemetry overnight. -Will have staged procedure, anticipate following up in 2 weeks for repeat cath to address other identified lesions/blockages - Continue pravastatin milligrams daily, nifedipine 30 mg daily, metoprolol tartrate 50 mg twice daily, irbesartan 150 mg daily as formulary conversion for home ARB Chronic GERD: Continue esomeprazole daily ALONSO: Creatinine 1.2, baseline 0.7. Gentle hydration after heart cath and contrast with 50 cc LR per hour. Monitor with repeat CBC, CMP, magnesium in the morning DNR Cardiac diet Heparinized and [facility]
[2023-05-24] MEDS: diphenhydrAMINE 50MG/ML VIAL 50 MG IV (12:03)
[2023-05-24] MEDS: CLOPIDOGREL 300MG TABLET 600 MG PO (12:09)
[2023-05-24] MEDS: LACTATED RINGERS 1000ML 1,000 ML 50 ML IV (12:49)
[2023-05-24] MEDS: ACETAMINOPHEN 325MG TAB 650 MG PO ×2 (12:49→21:46)
--- NOTE | 2023-05-24 14:35 | HMH.PHAINT1 ---
Pharmacy Intervention Comments: Home medication list verified via patient and outside pharmacy
[2023-05-24] MEDS: IOPAMIDOL-370 (76%);100ML BOTTLE 120 ML IV (15:14)
[2023-05-24 15:18] LABS: CATHL Activated Clotting Time > 400 SEC (74-125)
[2023-05-24] MEDS: METOPROLOL TARTRATE 50MG TABLET 50 MG PO (21:32)
[2023-05-24] MEDS: PANTOPRAZOLE 40MG TABLET 40 MG PO (21:32)
[2023-05-25] VITALS: BP 107/55; PULSE 74; RESP 16; TEMP 36.7; O2SAT 98
[2023-05-25 00:07] VITALS: PULSE 72
[2023-05-25 04:00] VITALS: BP 126/65; PULSE 74; PULSE 78; RESP 16; TEMP 36.6; O2SAT 97; BMI 30.3
[2023-05-25 06:20] LABS: Albumin Level 3.6 g/dl (3.5-5.0); Albumin/Globulin Ratio 1.4 (1.1-1.8); Alkaline Phosphatase 69 U/L (38-126); Anion Gap 11.5 mEq/L (5-15); Bilirubin,Total 0.6 mg/dl (0.2-1.3); Blood Urea Nitrogen 19 mg/dl (7-17); Calcium 9.4 mg/dl (8.4-10.2); Carbon Dioxide 23 mmol/L (22.0-30.0); Chloride 106 mmol/L (98-107); Creatinine Clearance Estimated 41 mL/min (50-200); Estimated Glomerular Filt Rate 47 ml/min (>60); GFR (African American) 57 ML/MIN (>60); Globulin 2.5 g/dL (1.3-3.2); Glucose 123 mg/dl (74-100); Magnesium 1.7 mg/dl (1.6-2.3); Potassium 4.5 mmoL/L (3.5-5.1); Sodium 136 mmol/L (136-145); Total Protein,Serum 6.1 g/dl (6.3-8.2)
[2023-05-25 06:21] LABS: Basophils # 0.1 K/mm3 (0-0.2); Basophils % 0.7 % (0.1-2.0); Eosinophils # 0.1 K/mm3 (0.0-0.4); Eosinophils % 1.7 % (0.1-12.0); Hematocrit 37.1 % (37.0-47.0); Hemoglobin 11.8 g/dL (12.2-16.2); Lymphocytes # 3.3 K/mm3 (0.7-4.5); Lymphocytes % 43.8 % (10-50); Mean Corpuscular HGB Conc 31.7 g/dL (31.8-35.4); Mean Corpuscular Hemoglobin 28.8 pg (27.0-31.2); Mean Corpuscular Volume 90.8 fl (81-99); Mean Platelet Volume 9.1 fl (7.4-10.4); Monocytes # 0.3 K/mm3 (0.1-1.0); Monocytes % 4.1 % (1.7-9.3); Neutrophils # 3.7 K/mm3 (1.8-7.8); Neutrophils % 49.8 % (37.0-80.0); Platelet Count 133 K/mm3 (142-424); Red Blood Count 4.08 M/mm3 (4.20-5.40); Red Cell Distribution Width 14.4 % (11.5-17.5); White Blood Count 7.5 K/mm3 (4.8-10.8)
--- NOTE | 2023-05-25 07:46 | EXP.DC.SUM ---
General Admission date:: 05/24/23 Discharge date: 05/25/23 HPI HPI HPI: 87-year-old female with DVT, hypertension heart failure preserved ejection and. Brought in for elective heart cath that she has been having dyspnea with exertion, fatigue, chest pressure for a few weeks now. Was seen in the [facility] today for elective procedure. Extensive work done with placement of stents. Given extent of work, right femoral approach, and ALONSO, request admission for monitoring overnight. Patient denies any active chest pain at this time. Stable on room air. No nausea, vomiting, diarrhea, confusion. Laying flat per protocol given approach in right inguinal region. Boyfriend at bedside, patient states she would like her daughter and significant other to be her surrogate decision makers. No other acute complaints at this time. Hospital Course Hospital Course Hospital Course: 87-year-old female with history of hypertension and heart failure preserved ejection fraction. Brought in electively for heart cath given chest pain and dyspnea with exertion. Discussed case with cardiology, had extensive procedure necessitating lithotripsy and stenting. Request observation overnight with serial labs in the morning to monitor kidney function. Medicine agreed to admit. Did well overnight. No acute events on telemetry. Stable to discharge home. Problems addressed as follows: CAD Hypertension Hyperlipidemia Heart failure with preserved ejection fraction Hypertrophic cardiomyopathy -Reviewed chart, echo from earlier this month with elevated RVSP. EF preserved. Actually noted to have hyperdynamic left ventricle with a EF greater than 60%. Taken for left heart cath with significant three-vessel disease identified. See cath report for full details of interventions on RCA. Continues to have circumflex and LAD disease that needs further treatment in a staged manner in 2 weeks. Kidney function did well during admission and remained stable with creatinine of 1.1 on morning of discharge. Adjustments made to home regimen including discontinuing nifedipine and initiating verapamil to improve treatment prior to her in the setting of HOCM. Will continue dual antiplatelet therapy with aspirin and Plavix. Discontinue ARB as his cough indicated hokum. Continue metoprolol tartrate 50 mg twice daily. Transition to high intensity statin with Lipitor 80 mg nightly. Chronic GERD: Previously on esomeprazole, interferes with Plavix, transition to Protonix daily ALONSO: Creatinine marginally elevated on admission. Stable however with level of 1.1 on day of discharge. Recommend repeat labs in 1 week to monitor for stability of kidney function. Total time spent on discharge 34 minutes in counseling, documentation, chart review, and direct care with patient. Exam Data for Last 24 hours Vital signs and Labs for Last 24 Hours: Temp Pulse Resp BP Pulse Ox O2 Del Method 97.9 F 78 16 126/65 97 Room Air 05/25/23 04:00 05/25/23 04:00 05/25/23 04:00 05/25/23 04:00 05/25/23 04:00 05/25/23 07:00 Laboratory Results - last 24 hr 05/24/23 08:41: WBC 10.2, RBC 4.25, Hgb 12.7, Hct 38.9, MCV 91.5, MCH 29.9, MCHC 32.7, RDW 14.3, Plt Count 173, MPV 9.3, Neut % (Auto) 41.2, Lymph % (Auto) 51.1 H, [place] % (Auto) 4.1, Eos % (Auto) 2.3, Baso % (Auto) 1.4, Neut # (Auto) 4.2, Lymph # (Auto) 5.2 H, [place] # (Auto) 0.4, Eos # (Auto) 0.2, Baso # (Auto) 0.1, Total Counted 100, Neutrophils % (Manual) 43, Band Neutrophils % 2.0, Lymphocytes % (Manual) 42, Monocytes % (Manual) 11 H, Eosinophils % (Manual) 2, Platelet Estimate Normal, RBC Morphology Normal, Sodium 137, Potassium 4.5, Chloride 105, Carbon Dioxide 26, Anion Gap 10.5, BUN 23 H, Creatinine 1.20 H, Estimated Creat Clear 37, Estimated GFR 43 L, Est GFR ( Amer) 52 L, Glucose 163 H, Calcium 9.6 05/24/23 11:12: Activated Clotting Time > 400 H* 05/25/23 05:30: WBC 7.5 D, RBC 4.08 L, Hgb 11.8 L, Hct 37.1, MCV 90.8, MCH 28.8, MCHC 31.7 L, RDW 14.4, Plt Count 133 L, MPV 9.1, Neut % (Auto) 49.8, Lymph % (Auto) 43.8, [place] % (Auto) 4.1, Eos % (Auto) 1.7, Baso % (Auto) 0.7, Neut # (Auto) 3.7, Lymph # (Auto) 3.3, [place] # (Auto) 0.3, Eos # (Auto) 0.1, Baso # (Auto) 0.1, Sodium 136, Potassium 4.5, Chloride 106, Carbon Dioxide 23, Anion Gap 11.5, BUN 19 H, Creatinine 1.10 H, Estimated Creat Clear 41, Estimated GFR 47 L, Est GFR ( Amer) 57 L, Glucose 123 H D, Calcium 9.4, Magnesium 1.7, Total Bilirubin 0.6, Alkaline Phosphatase 69, Total Protein 6.1 L, Albumin 3.6, Globulin 2.5, Albumin/Globulin Ratio 1.4 I & O for Last 24 hours: Intake & Output 05/22/23 05/23/23 05/24/23 05/25/23 23:59 23:59 23:59 23:59 Intake Total 580 / 700 120 / 120 Output Total 400 / 400 0 / 0 Balance 180 / 300 120 / 120 Weight 70.108 kg 70.108 kg Constitutional Constitutional: no acute distress, obese and cooperative *Routine HEENT Exam Head: Present normocephalic Eye: Present EOMI and PERRL ENT: Present mucous membranes moist *Routine Neck Exam Neck: Present supple; Absent lymphadenopathy *Routine Respiratory Exam Respiratory: Present CTA bilaterally *Routine Cardiovascular Exam Cardiovascular: Present RRR *Routine Abdominal Exam Abdominal: Present soft and normoactive bowel sounds; Absent tenderness *Routine Rectal Exam Patient deferred: visual exam *Routine Exam Patient deferred: external exam *Routine Extremities Exam Extremities: Absent cyanosis, clubbing or edema *Routine Skin Exam Skin: Present intact and warm; Absent rash *Routine Neurological Exam Neurological: Present alert, oriented X3 and moving all extremities; Absent altered mental status Results Data Completed and Pending Labs on day of discharge: Labs from last 24 hours 05/25/23 05/24/23 05/24/23 05:30 11:12 08:41 WBC 7.5 D 10.2 RBC 4.08 L 4.25 Hgb 11.8 L 12.7 Hct 37.1 38.9 MCV 90.8 91.5 MCH 28.8 29.9 MCHC 31.7 L 32.7 RDW 14.4 14.3 Plt Count 133 L 173 MPV 9.1 9.3 Neut % (Auto) 49.8 41.2 Lymph % (Auto) 43.8 51.1 H [place] % (Auto) 4.1 4.1 Eos % (Auto) 1.7 2.3 Baso % (Auto) 0.7 1.4 Neut # (Auto) 3.7 4.2 Lymph # (Auto) 3.3 5.2 H [place] # (Auto) 0.3 0.4 Eos # (Auto) 0.1 0.2 Baso # (Auto) 0.1 0.1 Total Counted 100 Neutrophils % (Manual) 43 Band Neutrophils % 2.0 Lymphocytes % (Manual) 42 Monocytes % (Manual) 11 H Eosinophils % (Manual) 2 Platelet Estimate Normal RBC Morphology Normal Activated Clotting Time > 400 H* Sodium 136 137 Potassium 4.5 4.5 Chloride 106 105 Carbon Dioxide 23 26 Anion Gap 11.5 10.5 BUN 19 H 23 H Creatinine 1.10 H 1.20 H Estimated Creat Clear 41 37 Estimated GFR 47 L 43 L Est GFR ( Amer) 57 L 52 L Glucose 123 H D 163 H Calcium 9.4 9.6 Magnesium 1.7 Total Bilirubin 0.6 Alkaline Phosphatase 69 Total Protein 6.1 L Albumin 3.6 Globulin 2.5 Albumin/Globulin Ratio 1.4 DS: Diagnosis Discharge Diagnosis (1) ALONSO (acute kidney injury): Status: Acute Code(s): N17.9 - Acute kidney failure, unspecified (2) Atypical angina: Status: Acute Code(s): I20.89 - Other forms of angina pectoris (3) Labile hypertension: Status: Acute Code(s): R09.89 - Other specified symptoms and signs involving the circulatory and respiratory systems (4) CHF (congestive heart failure): Status: Acute Code(s): I50.9 - Heart failure, unspecified Qualifiers: Heart failure chronicity: unspecified Heart failure type: unspecified Qualified Code(s): I50.9 - Heart failure, unspecified (5) Hypertension: Status: Acute Code(s): I10 - Essential (primary) hypertension Qualifiers: Hypertension type: essential hypertension Qualified Code(s): I10 - Essential (primary) hypertension (6) CAD (coronary artery disease): Status: Acute Code(s): I25.10 - Atherosclerotic heart disease of [place] coronary artery without angina pectoris (7) GERD (gastroesophageal reflux disease): Status: Acute Code(s): K21.9 - Gastro-esophageal reflux disease without esophagitis (8) HLD (hyperlipidemia): Status: Acute Code(s): E78.5 - Hyperlipidemia, unspecified (9) HOCM (hypertrophic obstructive cardiomyopathy): Status: Acute Code(s): I42.1 - Obstructive hypertrophic cardiomyopathy Meds Home Medications and Allergies Home Medications Medication Instructions Recorded Confirmed Type acetaminophen 500 mg tablet 500 mg PO Q6H PRN Pain 04/24/23 05/24/23 History (Tylenol Extra Strength) metoprolol tartrate 100 mg tablet 50 mg PO BID 04/24/23 05/24/23 History aspirin 81 mg tablet,delayed 81 mg PO DAILY #30 tabs 05/23/23 05/24/23 Rx release (Adult Aspirin Regimen) atorvastatin 80 mg tablet 80 mg PO HS 30 days #30 tabs 05/25/23 Rx clopidogrel 75 mg tablet 75 mg PO DAILY 30 days #30 tabs 05/25/23 Rx pantoprazole 40 mg tablet,delayed 40 mg PO DAILY #30 tabs 05/25/23 Rx release verapamil 120 mg 24 hr 120 mg PO DAILY 30 days #30 caps 05/25/23 Rx capsule,extended release New Prescriptions to Start Prescriptions: atorvastatin Harshal,Vargas clopidogrel Harshal,Vargas pantoprazole Harshal,Vargas verapamil Harshal,Varags Allergies Allergy/AdvReac Type Severity Reaction Status Date / Time diphenhydramine AdvReac Agitated Verified 05/24/23 09:32 [From [facility]] Discharge Plan Disposition Patient Disposition: Home, Self-Care Condition: Fair Follow up Plan Follow up with: Fracisco Castañeda MD [Staff Physician] - 05/31/23 1:45 pm Yossi Acosta MD [Primary Care Provider] - 06/01/23 9:30 am Prescriptions/Medication Reconciliation: New clopidogrel 75 mg Tablet 75 mg PO DAILY 30 Days Qty: 30 0RF verapamil 120 mg Capsule,Ext Rel. Pellets 24 Hr 120 mg PO DAILY 30 Days Qty: 30 0RF atorvastatin 80 mg tablet 80 mg PO HS 30 Days Qty: 30 0RF pantoprazole 40 mg tablet,delayed release (DR/EC) 40 mg PO DAILY Qty: 30 0RF Continued metoprolol tartrate 100 mg tablet 50 mg PO BID acetaminophen [Tylenol Extra Strength] 500 mg tablet 500 mg PO Q6H PRN (Reason: Pain) aspirin [Adult Aspirin Regimen] 81 mg tablet,delayed release (DR/EC) 81 mg PO DAILY Qty: 30 5RF Discontinued pravastatin 40 mg tablet 40 mg PO DAILY nifedipine 30 mg tablet extended release 30 mg PO DAILY esomeprazole magnesium [Nexium] 40 mg capsule,delayed release(DR/EC) 40 mg PO BID candesartan-hydrochlorothiazid 16-12.5 mg tablet 1 tab PO DAILY Qty: 30 0RF Problem Reconciliation Problems Reviewed?: Yes Patient Discharge Instructions ACTIVITY: Continue current activity DIET: continue same diet Patient Instructions: DI for Cardiac Catheterization, DI for Surgical Site Infection, DI for Moderate Sedation, DI for Post-Surgical Bleeding Providers Primary Care Provider: Yossi Acosta Admit Provider: Vargas Caputo Attending Provider: Vargas Caputo
[2023-05-25 07:50] VITALS: BP 158/56; PULSE 83; RESP 17; TEMP 36.4; O2SAT 98
[2023-05-25 08:00] VITALS: PULSE 85
[2023-05-25] MEDS: PANTOPRAZOLE 40MG TABLET 40 MG PO (08:03)
[2023-05-25] MEDS: PRAVASTATIN 40MG TAB 40 MG PO (08:03)
[2023-05-25] MEDS: METOPROLOL TARTRATE 50MG TABLET 50 MG PO (08:05)
[2023-05-25] MEDS: ASPIRIN EC 81MG TABLET 81 MG PO (08:06)
[2023-05-25] MEDS: NIFEdipine XL 30MG TABLET 30 MG PO (08:06)
[2023-05-25] MEDS: CLOPIDOGREL 75MG TAB 75 MG PO (08:06)
[2023-05-25] MEDS: IRBESARTAN 150MG TAB 150 MG PO (08:06)
[2023-05-25 08:16] LABS: Alanine Aminotransferase 18 U/L (12-78); Aspartate Amino Transferase 30 U/L (14-36)
[2023-05-25] MEDS: MAGNESIUM OXIDE 400MG TABLET 400 MG PO (08:24)
--- NOTE | 2023-05-25 09:46 | EXP.CARD.CON ---
History of Present Illness History of Present Illness Consult date: 05/25/23 Requesting physician: Vargas Caputo Consult reason: chest pain Chief complaint: chest pain, abnormal stress imaging History of present illness: 87-year-old white female without known prior cardiovascular disease presented to the clinic recently with complaints of worsening dyspnea on exertion chest pain radiating to her arm and fatigue. She had 2D echo which revealed LVH with hyperdynamic LV function at 70%. Stress imaging revealed no reversible ischemia but she did have TID suggestive of multivessel disease. Patient was on guideline directed medical therapy and elected to proceed with left heart cath. She underwent left heart cath yesterday revealing severe multivessel disease with at least 180% stenosis in LAD RCA and left circumflex. She underwent complicated procedure with lithotripsy of RCA vessel and successful stenting. She was kept overnight for observation and fluid bolus due to copious contrast usage. She is currently planned to return in 2 weeks for staged intervention of LAD and left circumflex. This morning she states she has no complaints. Denies chest pain shortness of breath palpitations as well as discomfort or bruising in right groin cath site. Her vitals are stable and her creatinine is actually improved over yesterday's value on admission. [facility] Disclaimer: The information contained in this section may have been updated after the patient was seen, as this information can be updated by other users. Medical History CHF (congestive heart failure) Abnormal electrocardiogram [ECG] [EKG] Family History Other No significant family history Social History Smoking Status: Never smoker alcohol intake: never substance use type: denies use current occupational status: other Travel in the last 8 weeks: None housing: other Review of Systems Constitutional Constitutional: Denies fatigue and Denies weakness Eyes Eyes: Denies loss of vision ENT Ears, Nose, Mouth, and Throat: Denies hearing loss and Denies vertigo *Cardiovascular Cardiovascular: Denies chest pain, Denies dyspnea and Denies syncope *Respiratory Respiratory: Denies cough and Denies dyspnea *Gastrointestinal Gastrointestinal: Denies change in stool character, Denies nausea and Denies vomiting *Musculoskeletal Musculoskeletal: Denies muscle weakness Integumentary/Breasts Skin/Breast: Denies changing lesions *Neurologic Neurologic: Denies loss of vision, Denies syncope, Denies vertigo and Denies weakness Endocrine Endocrine: Denies fatigue Exam Data for Last 24 hours Vital signs and Labs for Last 24 Hours: Temp Pulse Resp BP Pulse Ox O2 Del Method 97.6 F 85 17 158/56 H 98 Room Air 05/25/23 07:50 05/25/23 08:00 05/25/23 07:50 05/25/23 07:50 05/25/23 07:50 05/25/23 09:00 Laboratory Results - last 24 hr 05/24/23 08:41: Total Counted 100, Neutrophils % (Manual) 43, Band Neutrophils % 2.0, Lymphocytes % (Manual) 42, Monocytes % (Manual) 11 H, Eosinophils % (Manual) 2, Platelet Estimate Normal, RBC Morphology Normal 05/24/23 11:12: Activated Clotting Time > 400 H* 05/25/23 05:30: WBC 7.5 D, RBC 4.08 L, Hgb 11.8 L, Hct 37.1, MCV 90.8, MCH 28.8, MCHC 31.7 L, RDW 14.4, Plt Count 133 L, MPV 9.1, Neut % (Auto) 49.8, Lymph % (Auto) 43.8, [place] % (Auto) 4.1, Eos % (Auto) 1.7, Baso % (Auto) 0.7, Neut # (Auto) 3.7, Lymph # (Auto) 3.3, [place] # (Auto) 0.3, Eos # (Auto) 0.1, Baso # (Auto) 0.1, Sodium 136, Potassium 4.5, Chloride 106, Carbon Dioxide 23, Anion Gap 11.5, BUN 19 H, Creatinine 1.10 H, Estimated Creat Clear 41, Estimated GFR 47 L, Est GFR ( Amer) 57 L, Glucose 123 H D, Calcium 9.4, Magnesium 1.7, Total Bilirubin 0.6, AST 30, ALT 18, Alkaline Phosphatase 69, Total Protein 6.1 L, Albumin 3.6, Globulin 2.5, Albumin/Globulin Ratio 1.4 I & O for Last 24 hours: Intake & Output 05/22/23 05/23/23 05/24/23 05/25/23 23:59 23:59 23:59 23:59 Intake Total 580 / 700 360 / 360 Output Total 400 / 400 0 / 0 Balance 180 / 300 360 / 360 Weight 154 lb 9 oz 154 lb 8.987 oz Constitutional Constitutional: no acute distress and cooperative *Routine HEENT Exam Eye: Present PERRL *Routine Respiratory Exam Respiratory: Present CTA bilaterally; Absent accessory muscle use, wheezes or crackles *Routine Cardiovascular Exam Cardiovascular: Present RRR, Normal S1 and Normal S2; Absent murmur, gallop or rubs Comments: Right groin cath site normal on inspection and palpation *Routine Abdominal Exam Abdominal: Present soft; Absent tenderness *Routine Extremities Exam Extremities: Present pulses intact; Absent cyanosis or edema *Routine Skin Exam Skin: Present intact; Absent erythema or wounds *Routine Neurological Exam Neurological: Present alert and oriented X3 Routine Psychiatric Exam Psychiatric: Present cooperative Meds Home Medications and Allergies Home Medications Medication Instructions Recorded Confirmed Type esomeprazole magnesium 40 mg 40 mg PO BID 09/16/21 05/24/23 History capsule,delayed release (Nexium) candesartan 16 1 tab PO DAILY #30 tabs 04/20/23 05/24/23 Rx mg-hydrochlorothiazide 12.5 mg tablet acetaminophen 500 mg tablet 500 mg PO Q6H PRN Pain 04/24/23 05/24/23 History (Tylenol Extra Strength) metoprolol tartrate 100 mg tablet 50 mg PO BID 04/24/23 05/24/23 History nifedipine 30 mg tablet,extended 30 mg PO DAILY 04/24/23 05/24/23 History release pravastatin 40 mg tablet 40 mg PO DAILY 04/24/23 05/24/23 History aspirin 81 mg tablet,delayed 81 mg PO DAILY #30 tabs 05/23/23 05/24/23 Rx release (Adult Aspirin Regimen) clopidogrel 75 mg tablet 75 mg PO DAILY 30 days #30 tabs 05/25/23 Rx New Prescriptions to Start Prescriptions: clopidogrel Vargas Caputo Allergies Allergy/AdvReac Type Severity Reaction Status Date / Time diphenhydramine AdvReac Agitated Verified 05/24/23 09:32 [From Benadryl] Assessment and Plan *Assessment and plan (1) CAD (coronary artery disease): Status: Acute Category: Medical Code(s): I25.10 - Atherosclerotic heart disease of [place] coronary artery without angina pectoris (2) Atypical angina: Status: Acute Category: Medical Code(s): I20.89 - Other forms of angina pectoris (3) Labile hypertension: Status: Acute Category: Medical Code(s): R09.89 - Other specified symptoms and signs involving the circulatory and respiratory systems (4) CHF (congestive heart failure): Status: Acute Qualifiers: Heart failure chronicity: unspecified Heart failure type: unspecified Qualified Code(s): I50.9 - Heart failure, unspecified Category: Medical Code(s): I50.9 - Heart failure, unspecified (5) Hypertension: Status: Acute Qualifiers: Hypertension type: essential hypertension Qualified Code(s): I10 - Essential (primary) hypertension Category: Medical Code(s): I10 - Essential (primary) hypertension (6) GERD (gastroesophageal reflux disease): Status: Acute Category: Medical Code(s): K21.9 - Gastro-esophageal reflux disease without esophagitis (7) HLD (hyperlipidemia): Status: Acute Category: Medical Code(s): E78.5 - Hyperlipidemia, unspecified Plan MV-CAD s/p lithotripsy and PCI of RCA 05/2023 - new dx this admission, refer to cath report for details - CCS = 0, no ischemia noted on EKG - Cr stable - Home with DAPT, BB, high dose statin - return in 2 weeks for staged lithotripsy and PCI to LAD and LCX HOCM - new dx recently with LVOT obstruction, PHILLY Of mitral valve and Hyperdynamic LV function 70-80% - change nifedipine to Verapamil and will try to maximize this dose overtime - consider outpatient approval of Janey/Corie CKD, 2 - Cr 1.1, 1.2 - cont to monitor OP HLD - goal is <55, she is >100 - change from Pravastatin 40 to Crestor 40 (high dose) CV stable for DC home with meds/plans as outlined above. Office f/u 1 week.
--- NOTE | 2023-05-28 15:50 | SW/DCPLANNER ---
Follow up phone call w/ this patient: patient stated that she is doing well at home. Patient was able to bead picker all of her medication and is aware of follow up appointments w/ Dr Castañeda and Dr Acosta.
== END 2023-05-25 12:24 | disposition home or self-care (01) ==
LOC: 2ND 11:35
PROVIDERS: Internal Medicine; Admitting Provider Internal Medicine Adolescent Medicine; PCP Internal Medicine Adolescent Medicine; Visit Provider Internal Medicine Adolescent Medicine
DX: I25.118 Atherosclerotic heart disease of native coronary artery with other forms of angina pectoris (principal); I50.32 Chronic diastolic (congestive) heart failure; R79.89 Other specified abnormal findings of blood chemistry; R94.31 Abnormal electrocardiogram [ECG] [EKG]; R60.0 Localized edema; R53.83 Other fatigue; R42 Dizziness and giddiness; R06.09 Other forms of dyspnea; E87.6 Hypokalemia; R94.39 Abnormal result of other cardiovascular function study; N17.9 Acute kidney failure, unspecified; I11.0 Hypertensive heart disease with heart failure; K21.9 Gastro-esophageal reflux disease without esophagitis; E78.5 Hyperlipidemia, unspecified; I42.1 Obstructive hypertrophic cardiomyopathy; Z79.899 Other long term (current) drug therapy
CPT/HCPCS: 80048; 80053; 83735; 85007; 85025; 85347; 92928; 92972; 93458; 99152; 99153; C1725; C1760; C1761; C1769; C1876; C9600; G0378; J1644; Q9967

== ENCOUNTER 2023-06-14 07:49 | Day surgery (SDC) | payer MEDICARE, SELFPAY ==
[2023-06-14] VITALS (17 sets, daily range): BP systolic 130–196; BP diastolic 58–97; PULSE 60–68; RESP 16–18; TEMP 36.6; O2SAT 94–99; BMI 29.2
--- NOTE | 2023-06-14 07:13 | IR_ITS ---
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 COMPLICATIONS NONE Estimated Blood Loss: LESS THAN 10 ML TECHNIQUE 1% lidocaine used anesthetize right groin the right femoral artery was accessed via the center technique and a 6 Kinyarwanda sheath was placed in the right femoral artery. Therapeutic Was administered giving a therapeutic ACT and an EBU 3.75 guide catheter was placed in left main artery followed by Choice PT extra-support wire being placed in the proximal LAD. A 2.75 x 12 mm Shin frontier stent was deployed at 20 dorota in the ostial proximal segment. A guide liner was required in order to deliver the second stent. An additional 2.75 x 22 mm [place] frontier stent was placed distal to the for stent yet still overlapping and deployed at 16 dorota. The balloon was brought back and deployed at 20 dorota to mesh the 2 stents. STORMY-3 flow was present before and after the procedure. Following this a choice floppy wire was placed in the proximal circumflex artery where a 2.75 x 12 mm [place] frontier stent was placed in the proximal circumflex artery at 20 dorota reducing the severe stenosis to 0%. The apparatus was removed and the [id number] 5 Kinyarwanda catheter was used to perform bilateral selective renal angiography. At the end the procedure the apparatus was removed the groin is reprepped closure change sheath was removed and hemostasis was achieved using Perclose device patient was transferred to the postop holding in stable condition ANGIOGRAPHIC RESULTS Bilateral renal arteries are singular and normal IMPRESSION Successful stent to the ostial proximal LAD severe calcified disease reduced to 0% with 2 contiguous drug-eluting stents Successful stent to the proximal circumflex artery severe disease reduced to 0% with 1 drug-eluting stent Normal bilateral renal arteries PLAN 1. Continue dual antiplatelet therapy 2. Avoidance of tobacco products 3. Risk factor modification 4. Cardiac rehabilitation 5. LDL less than 55 to be achieved with high intensity statin Electronically signed by : Fracisco Castañeda MD 06/14/2023 10:20:58
[2023-06-14 08:21] LABS: Basophils # 0.1 K/mm3 (0-0.2); Eosinophils # 0.3 K/mm3 (0.0-0.4); Eosinophils % 2.7 % (0.1-12.0); Hematocrit 38.9 % (37.0-47.0); Hemoglobin 12.6 g/dL (12.2-16.2); Lymphocytes # 4.5 K/mm3 (0.7-4.5); Lymphocytes % 48.4 % (10-50); Mean Corpuscular HGB Conc 32.3 g/dL (31.8-35.4); Mean Corpuscular Hemoglobin 29.5 pg (27.0-31.2); Mean Corpuscular Volume 91.2 fl (81-99); Mean Platelet Volume 9.7 fl (7.4-10.4); Monocytes # 0.4 K/mm3 (0.1-1.0); Monocytes % 4.3 % (1.7-9.3); Neutrophils % 43.6 % (37.0-80.0); Platelet Count 237 K/mm3 (142-424); Red Blood Count 4.26 M/mm3 (4.20-5.40); Red Cell Distribution Width 14.9 % (11.5-17.5); White Blood Count 9.3 K/mm3 (4.8-10.8)
[2023-06-14 08:29] LABS: Chloride 109 mmol/L (98-107); Potassium 5.1 mmoL/L (3.5-5.1); Sodium 138 mmol/L (136-145)
[2023-06-14 08:32] LABS: Anion Gap 12.1 mEq/L (5-15); Blood Urea Nitrogen 13 mg/dl (7-17); Calcium 9.7 mg/dl (8.4-10.2); Carbon Dioxide 22 mmol/L (22.0-30.0); Creatinine Clearance Estimated 44 mL/min (50-200); Estimated Glomerular Filt Rate 68 ml/min (>60); GFR (African American) 82 ML/MIN (>60); Glucose 173 mg/dl (74-100)
[2023-06-14] MEDS: HEPARIN 1,000 UNITS/500ML NS (CATH LAB) 3000 UNIT IV (09:20)
[2023-06-14] MEDS: 0.9 % SODIUM CHLORIDE 500 ML 25 ML IV (09:20)
[2023-06-14] MEDS: LIDOCAINE 1% 10ML MDV 20 ML IJ (09:29)
[2023-06-14] MEDS: FENTANYL 100MCG/2ML VIAL 50 MCG IV (09:50)
[2023-06-14] MEDS: MIDAZOLAM HCL 1MG/1ML 5ML VIAL 1 MG IV (09:51)
[2023-06-14] MEDS: HEPARIN 1,000 UNITS/ML 10ML VIAL (CATH LAB) 10000 UNIT IV (09:52)
[2023-06-14] MEDS: IOPAMIDOL-370 (76%);100ML BOTTLE 150 ML IV (12:51)
[2023-06-14 15:03] LABS: CATHL Activated Clotting Time 346 SEC (74-125)
== END 2023-06-14 15:00 | disposition home or self-care (01) ==
PROVIDERS: PCP Internal Medicine Adolescent Medicine; Visit Provider Internal Medicine
DX: R06.09 Other forms of dyspnea; I50.9 Heart failure, unspecified; R94.39 Abnormal result of other cardiovascular function study; R09.89 Other specified symptoms and signs involving the circulatory and respiratory systems; I42.1 Obstructive hypertrophic cardiomyopathy; E78.5 Hyperlipidemia, unspecified; I25.118 Atherosclerotic heart disease of native coronary artery with other forms of angina pectoris; I11.0 Hypertensive heart disease with heart failure; Z79.899 Other long term (current) drug therapy; I15.0 Renovascular hypertension; I70.1 Atherosclerosis of renal artery
CPT/HCPCS: 36252; 80048; 85025; 85347; 92928; 99152; 99153; C1725; C1760; C1769; C1876; C1894; C9600; J1644; Q9967

== ENCOUNTER 2023-06-15 10:55 | Outpatient (CLI) | payer MEDICARE, SELFPAY ==
[2023-06-15 11:23] LABS: Basophils # 0.1 K/mm3 (0-0.2); Eosinophils # 0.2 K/mm3 (0.0-0.4); Eosinophils % 2.2 % (0.1-12.0); Hematocrit 39.4 % (37.0-47.0); Hemoglobin 12.3 g/dL (12.2-16.2); Lymphocytes # 2.8 K/mm3 (0.7-4.5); Lymphocytes % 36.8 % (10-50); Mean Corpuscular HGB Conc 31.3 g/dL (31.8-35.4); Mean Corpuscular Hemoglobin 29.7 pg (27.0-31.2); Mean Corpuscular Volume 94.7 fl (81-99); Mean Platelet Volume 8.7 fl (7.4-10.4); Monocytes # 0.3 K/mm3 (0.1-1.0); Monocytes % 3.6 % (1.7-9.3); Neutrophils # 4.2 K/mm3 (1.8-7.8); Neutrophils % 56.3 % (37.0-80.0); Platelet Count 202 K/mm3 (142-424); Red Blood Count 4.16 M/mm3 (4.20-5.40); Red Cell Distribution Width 14.9 % (11.5-17.5); White Blood Count 7.5 K/mm3 (4.8-10.8)
[2023-06-15 12:19] LABS: Anion Gap 14.2 mEq/L (5-15); Blood Urea Nitrogen 16 mg/dl (7-17); Calcium 9.8 mg/dl (8.4-10.2); Carbon Dioxide 22 mmol/L (22.0-30.0); Chloride 106 mmol/L (98-107); Estimated Glomerular Filt Rate 60 ml/min (>60); GFR (African American) 72 ML/MIN (>60); Glucose 334 mg/dl (74-100); Potassium 4.2 mmoL/L (3.5-5.1); Sodium 138 mmol/L (136-145)
== END 2023-06-15 23:59 | disposition home or self-care (01) ==
LOC: LAB 10:55
PROVIDERS: PCP Internal Medicine Adolescent Medicine; Visit Provider Internal Medicine
DX: I25.10 Atherosclerotic heart disease of native coronary artery without angina pectoris (principal); Z95.5 Presence of coronary angioplasty implant and graft
CPT/HCPCS: 36415; 80048; 85025

== ENCOUNTER 2023-06-21 12:13 | Outpatient (CLI) | payer MEDICARE, SELFPAY ==
[2023-06-21 12:39] LABS: Basophils # 0.1 K/mm3 (0-0.2); Eosinophils # 0.2 K/mm3 (0.0-0.4); Hematocrit 39.6 % (37.0-47.0); Hemoglobin 12.6 g/dL (12.2-16.2); Mean Corpuscular HGB Conc 31.8 g/dL (31.8-35.4); Mean Corpuscular Hemoglobin 29.2 pg (27.0-31.2); Mean Corpuscular Volume 91.7 fl (81-99); Mean Platelet Volume 8.6 fl (7.4-10.4); Monocytes # 0.4 K/mm3 (0.1-1.0); Monocytes % 4.4 % (1.7-9.3); Neutrophils # 4.4 K/mm3 (1.8-7.8); Neutrophils % 54.7 % (37.0-80.0); Platelet Count 201 K/mm3 (142-424); Red Blood Count 4.32 M/mm3 (4.20-5.40)
[2023-06-21 13:10] LABS: Chloride 107 mmol/L (98-107)
[2023-06-21 13:11] LABS: Potassium 4.3 mmoL/L (3.5-5.1); Sodium 137 mmol/L (136-145)
[2023-06-21 13:13] LABS: Blood Urea Nitrogen 18 mg/dl (7-17); Estimated Glomerular Filt Rate 60 ml/min (>60); GFR (African American) 72 ML/MIN (>60)
[2023-06-21 13:14] LABS: Alanine Aminotransferase 18 U/L (12-78); Alkaline Phosphatase 73 U/L (38-126); Anion Gap 11.3 mEq/L (5-15); Aspartate Amino Transferase 27 U/L (14-36); Bilirubin,Direct 0.3 mg/dl (0.0-0.4); Bilirubin,Indirect 0.4 mg/dL (0.0-0.9); Bilirubin,Total 0.7 mg/dl (0.2-1.3); Bilirubin,Unconjugated 0.4 mg/dL (0.0-1.1); Carbon Dioxide 23 mmol/L (22.0-30.0); Cholesterol 130 mg/dl (140-200); Glucose 226 mg/dl (74-100); Magnesium 1.7 mg/dl (1.6-2.3); Total Protein,Serum 6.4 g/dl (6.3-8.2); Triglycerides 261 mg/dl (30-150); VLDL Cholesterol 52 mg/dL (0-40)
[2023-06-21 13:15] LABS: Chol/HDL Ratio 3.3 (1-3.5); HDL Cholesterol 39 mg/dl (40-60)
[2023-06-21 13:34] LABS: Direct LDL Cholesterol 61.44 mg/dL (100-129)
[2023-06-21 13:39] LABS: Free T4 (Free Thyroxine) 1.15 ng/dl (0.78-2.19)
[2023-06-21 13:54] LABS: Thyroid Stimulating Hormone 0.88 uIU/mL (0.465-4.68)
== END 2023-06-21 23:59 | disposition home or self-care (01) ==
LOC: LAB 12:14
PROVIDERS: PCP Internal Medicine Adolescent Medicine; Visit Provider Nurse Practitioner
DX: E78.2 Mixed hyperlipidemia (principal); I42.1 Obstructive hypertrophic cardiomyopathy; I25.118 Atherosclerotic heart disease of native coronary artery with other forms of angina pectoris; R94.39 Abnormal result of other cardiovascular function study; I50.9 Heart failure, unspecified; R06.09 Other forms of dyspnea; I15.0 Renovascular hypertension; R79.9 Abnormal finding of blood chemistry, unspecified
CPT/HCPCS: 36415; 80048; 80061; 80076; 83036; 83735; 84439; 84443; 85025

== ENCOUNTER 2023-07-04 13:08 | Emergency (ER) | payer MEDICARE, SELFPAY ==
[2023-07-04] VITALS (11 sets, daily range): BP systolic 152–196; BP diastolic 62–94; PULSE 61–70; RESP 14–18; TEMP 36.4–36.6; O2SAT 95–98; BMI 29.5
--- NOTE | 2023-07-04 13:11 | PC.NURSE ---
dr up at bedside
--- NOTE | 2023-07-04 13:20 | XR_ITS ---
PROCEDURE INFORMATION: Exam: XR Chest Exam date and time: 07/04/2023 1:44 PM Age: 87 years old Clinical indication: Other: Pre - syncope; Additional info: Presyncope TECHNIQUE: Imaging protocol: Radiologic exam of the chest. Views: 1 view. COMPARISON: CR XR CHEST PORTABLE 04/20/2023 4:10 PM FINDINGS: Lungs: No lobar consolidation seen. Prominence of the pulmonary interstitium is likely chronic. Pleural spaces: Unremarkable. No pleural effusion. No pneumothorax. Heart/Mediastinum: Unremarkable. No cardiomegaly. 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 No acute fracture seen. IMPRESSION: No evidence of acute cardiopulmonary disease.
--- NOTE | 2023-07-04 13:20 | CT_ITS ---
PROCEDURE INFORMATION: Exam: CTA Neck With Contrast Exam date and time: 07/04/2023 1:30 PM Age: 87 years old Clinical indication: Dizziness and giddiness; Additional info: Subacute intermittent light headedness and syncope TECHNIQUE: Imaging protocol: Computed tomographic angiography of the neck with contrast. Exam focused on the cervical segments of the vasculature. 3D rendering (Not supervised by radiologist): MIP and/or 3D reconstructed images were created by the technologist. Radiation optimization: All CT scans at this facility use at least one of these dose optimization techniques: automated exposure control; mA and/or kV adjustment per patient size (includes targeted exams where dose is matched to clinical indication); or iterative reconstruction. Contrast material: ISOVUE 370; Contrast volume: 100 ml; Contrast route: INTRAVENOUS (IV); COMPARISON: CT ANGIO HEAD 07/04/2023 1:30 PM FINDINGS: Right common carotid artery: Distal right common carotid artery calcified and noncalcified atherosclerosis causing mild stenosis. Right internal carotid artery: Proximal right ICA calcified and noncalcified atherosclerosis causing moderate, approximate 50% stenosis. Right external carotid artery: Proximal right ECA noncalcified plaque causing moderate stenosis. Left common carotid artery: Proximal left common carotid artery calcified atherosclerosis causing mild stenosis. Distal left common carotid artery noncalcified atherosclerosis does not contribute to significant stenosis. There is a 1-2 mm atherosclerotic ulcer, image 55 series 3. Left internal carotid artery: Proximal left ICA noncalcified and calcified atherosclerosis causing mild, approximate 35% stenosis. Left external carotid artery: Proximal left ECA calcified and noncalcified plaque causing mild, borderline moderate stenosis. Right vertebral artery: Calcified atherosclerosis at the origin of the right vertebral artery causing severe stenosis. Left vertebral artery: Calcified atherosclerosis at the origin of the left vertebral artery causing moderate stenosis. Right subclavian artery: Poor visualization of the right subclavian artery due to streak artifacts from contrast material. Calcified and noncalcified atherosclerosis at the origin probably causing severe stenosis. Stenoses are otherwise likely moderate. Left subclavian artery: Left subclavian artery atherosclerosis causing up to moderate stenosis. Orbital cavities: Thinning of the lenses of the globes consistent with prior lens surgery. Thyroid: An approximate 4 cm mass in the superior left thyroid lobe. Suspect additional smaller thyroid nodules bilaterally. Soft tissues: No significant soft tissue swelling. Scattered small cervical lymph nodes are noted, not individually pathologically enlarged. Bones/joints: Moderate to severe cervical facet arthropathy. Severe degenerative changes at C1-C2. Advanced cervical degenerative disc disease at C3-C4, C4-C5 and C6-C7. Prior ACDF at C5-C6. IMPRESSION: 1. No acute vascular findings in the neck. 2. Moderate, approximate 50% right ICA stenosis. 3. Mild, approximate 35% proximal left ICA stenosis. 4. Atherosclerosis at the origins of the vertebral arteries causing severe stenosis on the right and moderate stenosis on the left. 5. A 4 cm left thyroid mass. Recommend thyroid ultrasound follow-up on a nonemergent basis. COMMENTS: Consistent with the [employer]'s Incidental Findings Committee white paper (J Am Claire [employer]iol 2015): In patients aged 35 years and older with an incidental thyroid nodule equal to or greater than 1.[address], MRI or extrathyroidal US, further evaluation with dedicated thyroid US is recommended for patients with normal life expectancy and without comorbidities. For smaller nodules without suspicious features, no further evaluation or follow up is recommended. REFERENCES: NASCET CRITERIA. The degree of stenosis in the cervical segment of the internal carotid artery is based on NASCET criteria. Normal is no stenosis. Mild is less than 50% stenosis. Moderate is 50-69% stenosis. Severe is 70% to 99% stenosis. Total occlusion is no detectable patent lumen.
--- NOTE | 2023-07-04 13:20 | CT_ITS ---
PROCEDURE INFORMATION: Exam: CT Head Without Contrast Exam date and time: 07/04/2023 1:30 PM Age: 87 years old Clinical indication: Dizziness; Additional info: Subacute intermittent light headedness and syncope TECHNIQUE: Imaging protocol: Computed tomography of the head without contrast. Radiation optimization: All CT scans at this facility use at least one of these dose optimization techniques: automated exposure control; mA and/or kV adjustment per patient size (includes targeted exams where dose is matched to clinical indication); or iterative reconstruction. COMPARISON: CT ANGIO HEAD 07/04/2023 1:30 PM FINDINGS: Brain: The brain demonstrates diffuse volume loss. White matter hypodensities most consistent with chronic small vessel ischemic change. No visible evolving territorial infarct. No hemorrhage. Focal, chronic appearing cerebellar infarcts. Suggestion of a small right temporal infarct, probably chronic, sagittal image 11 series 1002. Cerebral ventricles: The ventricles are enlarged in keeping with volume loss. Pituitary gland and sella: There is a partially empty sella turcica. Paranasal sinuses: Visualized sinuses are unremarkable. No fluid levels. Mastoid air cells: Visualized mastoid air cells are well aerated. Bones: Unremarkable. No acute fracture. Soft tissues: Unremarkable. IMPRESSION: No acute intracranial abnormality seen.
--- NOTE | 2023-07-04 13:20 | CT_ITS ---
PROCEDURE INFORMATION: Exam: CTA Head With Contrast, Arteriography Exam date and time: 07/04/2023 1:30 PM Age: 87 years old Clinical indication: Syncope and collapse; Additional info: Subacute intermittent light headedness and syncope TECHNIQUE: Imaging protocol: Computed tomographic angiography of the head with contrast. Exam focused on the arteries. 3D rendering (Not supervised by radiologist): MIP and/or 3D reconstructed images were created by the technologist. Radiation optimization: All CT scans at this facility use at least one of these dose optimization techniques: automated exposure control; mA and/or kV adjustment per patient size (includes targeted exams where dose is matched to clinical indication); or iterative reconstruction. Contrast material: ISOVUE 370; Contrast volume: 100 ml; Contrast route: INTRAVENOUS (IV); COMPARISON: CT HEAD/BRAIN WO CON 07/04/2023 1:30 PM FINDINGS: ANTERIOR CIRCULATION: Right internal carotid artery: The right ICA demonstrates calcified atherosclerosis. Stenosis is severe in the cavernous segment. Right middle cerebral artery: No occlusion or significant stenosis. No aneurysm. Right anterior cerebral artery: No occlusion or significant stenosis. No aneurysm. Left internal carotid artery: The left ICA demonstrates calcified atherosclerosis. Stenosis is moderate in the cavernous segment, severe in the supraclinoid segment. Left middle cerebral artery: No occlusion or significant stenosis. No aneurysm. Left anterior cerebral artery: No occlusion or significant stenosis. No aneurysm. POSTERIOR CIRCULATION: Right vertebral artery: No occlusion or significant stenosis. No aneurysm. Left vertebral artery: No occlusion or significant stenosis. No aneurysm. Basilar artery: No occlusion or significant stenosis. No aneurysm. Right posterior cerebral artery: The right posterior cerebral artery demonstrates mild atherosclerosis. No proximal occlusion or high-grade stenosis. Left posterior cerebral artery: The left posterior cerebral artery demonstrates mild atherosclerosis. No proximal occlusion or high-grade stenosis. Brain: No definite mass, mass effect, or midline shift. Cerebral ventricles: No significant ventriculomegaly. Bones/joints: Unremarkable. No acute fracture. Soft tissues: Unremarkable. IMPRESSION: 1. No proximal intracranial arterial occlusion seen. 2. High-grade intracranial ICA stenoses due to atherosclerosis.
--- NOTE | 2023-07-04 13:22 | ED_ITS ---
Discharge Plan Disposition Patient Disposition: Home, Self-Care Chief Complaint: Dizziness Prescriptions Prescriptions: New verapamil 360 mg capsule,ext rel. pellets 24 hr 360 mg PO DAILY Qty: 60 0RF No Action acetaminophen [Tylenol Extra Strength] 500 mg tablet 500 mg PO Q6H PRN (Reason: Pain) aspirin [Adult Aspirin Regimen] 81 mg tablet,delayed release (DR/EC) 81 mg PO DAILY Qty: 30 5RF clopidogrel 75 mg tablet 75 mg PO DAILY Qty: 90 3RF atorvastatin 80 mg tablet 80 mg PO HS Qty: 90 3RF metoprolol tartrate 50 mg tablet 50 mg PO BID Qty: 180 3RF verapamil 240 mg capsule,ext rel. pellets 24 hr 240 mg PO DAILY Qty: 90 3RF valsartan 320 mg tablet 320 mg PO DAILY Qty: 30 3RF furosemide [Lasix] 20 mg tablet 20 mg PO DAILY Qty: 30 2RF pantoprazole 40 mg tablet,delayed release (DR/EC) 40 mg PO DAILY Qty: 30 0RF Referrals Follow up/Referrals: Yossi Acosta MD [Primary Care Provider] - See instructions Activity Restrictions/Add. Instructions Additional Instructions/Restrictions: Follow-up with your family doctor regarding this visit to the emergency department. Call the neurosurgery department at the [facility] to schedule an appointment for evaluation for carotid stenosis (narrowing of your arteries going into your brain) and further management. Also discussed thyroid ultrasound with your family doctor outpatient for further evaluation of your thyroid nodule. Appointment tomorrow with cardiology at 1 PM on 07/04. Increase your medication (verapamil) to 360 mg, this has been sent to your [facility] pharmacy. Clinical Impressions Clinical Impression: Pre-syncope, Mass of thyroid gland Discharge ED Provider: [facility] <Rafat Baez MD - Last Filed: 07/04/23 15:28> General Chief complaint: Dizziness Stated complaint: dizzy, slurry words, bp issues Time Seen by Provider: 07/04/23 13:10 History of Present Illness HPI narrative: Patient is a 87-year-old female with past medical history of hypertension, hyperlipidemia, 5 coronary artery stents over the last 6 weeks who presents emergency department for evaluation of lightheadedness and presyncope. In May patient had an episode where she lost vision and hearing for short amount of time with recovery spontaneously. This morning she was sitting at her kitchen table where she felt very lightheaded and tunnel vision for transient mount of time. She presented to cardiology clinic who referred her here for continued evaluation. Patient is not on anticoagulation, no trauma. No other acute complaints at this time. Baseline functionality patient ambulates with a cane. Related Data Home Medications Medication Instructions Recorded Confirmed acetaminophen 500 mg tablet 500 mg PO Q6H PRN Pain 04/24/23 06/27/23 (Tylenol Extra Strength) Previous Rx's Medication Instructions Recorded aspirin 81 mg tablet,delayed 81 mg PO DAILY #30 tabs 05/23/23 release (Adult Aspirin Regimen) pantoprazole 40 mg tablet,delayed 40 mg PO DAILY #30 tabs 05/25/23 release atorvastatin 80 mg tablet 80 mg PO HS #90 tabs 06/21/23 clopidogrel 75 mg tablet 75 mg PO DAILY #90 tabs 06/21/23 furosemide 20 mg tablet (Lasix) 20 mg PO DAILY #30 tabs 06/21/23 metoprolol tartrate 50 mg tablet 50 mg PO BID #180 tabs 06/21/23 valsartan 320 mg tablet 320 mg PO DAILY #30 tabs 06/21/23 verapamil 240 mg 24 hr 240 mg PO DAILY #90 caps 06/21/23 capsule,extended release verapamil 360 mg 24 hr 360 mg PO DAILY #60 caps 07/04/23 capsule,extended release Allergies Allergy/AdvReac Type Severity Reaction Status Date / Time diphenhydramine AdvReac Agitated Verified 06/27/23 11:03 [From Benadryl] metformin AdvReac Mild Uncoded 06/27/23 11:03 [facility] <Rafat Baez MD - Last Filed: 07/04/23 15:28> [facility] Disclaimer: The information contained in this section may have been updated after the patient was seen, as this information can be updated by other users. Medical History (Updated 07/04/23 @ 15:53 by Dee Dee Reed APRN) First degree atrioventricular block by electrocardiogram Right bundle branch block Vertebral artery stenosis Stenosis of carotid artery Hypertension CAD (coronary artery disease) HLD (hyperlipidemia) ALONSO (acute kidney injury) HOCM (hypertrophic obstructive cardiomyopathy) Mass of thyroid gland Dizziness Adverse reaction to drug Pancreatitis CHF (congestive heart failure) Abnormal electrocardiogram [ECG] [EKG] Family History Other No significant family history Social History Smoking Status: Never smoker alcohol intake: never substance use type: denies use current occupational status: other Travel in the last 8 weeks: None housing: other <Rafat Baez MD - Last Filed: 07/04/23 15:28> ROS Obtained: Yes Systems reviewed as appropriate & no additional complaints except as documented Physical Exam <Rafat Baez MD - Last Filed: 07/04/23 15:28> General General appearance: alert and in no apparent distress Head Head exam: atraumatic and normocephalic Eye Eye exam: Present PERRL and EOMI ENT ENT exam: Present mucous membranes moist Neck Neck exam: Present normal inspection Chest Chest inspection: Present normal inspection and symmetric chest wall rise Respiratory Respiratory exam: Present normal lung sounds bilaterally; Absent respiratory distress Cardiovascular Cardiovascular exam: Present regular rate and normal rhythm Abdominal Exam Abdominal exam: Present soft; Absent tenderness Extremities Exam Extremities exam: Present normal inspection Neurological Exam Neurological exam: Present alert and CN II-XII intact; Absent motor sensory deficit Psychiatric Psychiatric exam: Present normal affect Skin Skin exam: Present warm and dry Medical Decision Making <Rafat Baez MD - Last Filed: 07/04/23 15:28> Stephen Inquiry Pt receiving controlled substance: No Vital Signs: 07/04/23 13:09 07/04/23 13:59 07/04/23 14:06 Temperature 97.6 F Temperature Source Oral Pulse Rate 70 69 Pulse Rate [Orthostatic Lying Right] Pulse Rate [Orthostatic Sitting Right] Pulse Rate [Orthostatic Standing Right] Pulse Rate [Right Radial] 64 Respiratory Rate 18 Blood Pressure 168/64 H 162/70 H Blood Pressure [Orthostatic Lying Left Arm] Blood Pressure [Orthostatic Sitting Left Arm] Blood Pressure [Orthostatic Standing Left Arm] Blood Pressure [Right Arm] 163/72 H Blood Pressure Mean 98 100 Blood Pressure Mean [Right Arm] 102 Blood Pressure Source [Right Arm] Automatic Cuff Blood Pressure Position [Right Arm] Sitting 02 Sat by Pulse Oximetry 96 96 96 Oxygen Delivery Method Room Air 07/04/23 14:07 07/04/23 14:08 07/04/23 14:16 Temperature Temperature Source Pulse Rate 68 68 Pulse Rate [Orthostatic Lying Right] 67 Pulse Rate [Orthostatic Sitting Right] 67 Pulse Rate [Orthostatic Standing Right] 68 Pulse Rate [Right Radial] Respiratory Rate Blood Pressure 160/70 H 152/62 H Blood Pressure [Orthostatic Lying Left Arm] 162/70 H Blood Pressure [Orthostatic Sitting Left Arm] 160/70 H Blood Pressure [Orthostatic Standing Left Arm] 152/62 H Blood Pressure [Right Arm] Blood Pressure Mean 100 92 Blood Pressure Mean [Right Arm] Blood Pressure Source [Right Arm] Blood Pressure Position [Right Arm] 02 Sat by Pulse Oximetry 95 96 Oxygen Delivery Method 07/04/23 15:01 07/04/23 15:31 07/04/23 16:01 Temperature Temperature Source Pulse Rate 61 68 62 Pulse Rate [Orthostatic Lying Right] Pulse Rate [Orthostatic Sitting Right] Pulse Rate [Orthostatic Standing Right] Pulse Rate [Right Radial] Respiratory Rate 15 17 Blood Pressure 193/72 H 171/77 H 190/86 H Blood Pressure [Orthostatic Lying Left Arm] Blood Pressure [Orthostatic Sitting Left Arm] Blood Pressure [Orthostatic Standing Left Arm] Blood Pressure [Right Arm] Blood Pressure Mean 83 Blood Pressure Mean [Right Arm] Blood Pressure Source [Right Arm] Blood Pressure Position [Right Arm] 02 Sat by Pulse Oximetry 96 96 96 Oxygen Delivery Method 07/04/23 16:28 Temperature Temperature Source Pulse Rate Pulse Rate [Orthostatic Lying Right] Pulse Rate [Orthostatic Sitting Right] Pulse Rate [Orthostatic Standing Right] Pulse Rate [Right Radial] Respiratory Rate 14 Blood Pressure 196/94 H Blood Pressure [Orthostatic Lying Left Arm] Blood Pressure [Orthostatic Sitting Left Arm] Blood Pressure [Orthostatic Standing Left Arm] Blood Pressure [Right Arm] Blood Pressure Mean Blood Pressure Mean [Right Arm] Blood Pressure Source [Right Arm] Blood Pressure Position [Right Arm] 02 Sat by Pulse Oximetry Oxygen Delivery Method Lab Data Lab Results 07/04/23 13:40: WBC 7.4, RBC 4.23, Hgb 12.3, Hct 38.3, MCV 90.7, MCH 29.2, MCHC 32.2, RDW 14.7, Plt Count 194, MPV 8.7, Neut % (Auto) 49.9, Lymph % (Auto) 41.4, [place] % (Auto) 5.4, Eos % (Auto) 2.7, Baso % (Auto) 0.7, Neut # (Auto) 3.7, Lymph # (Auto) 3.1, [place] # (Auto) 0.4, Eos # (Auto) 0.2, Baso # (Auto) 0.1, Sodium 139, Potassium 4.3, Chloride 107, Carbon Dioxide 25, Anion Gap 11.3, BUN 23 H, Creatinine 1.00, Estimated Creat Clear 44, Estimated GFR 53 L, Est GFR ( Amer) 64, Glucose 209 H, Calcium 9.8, Magnesium 1.7, Total Bilirubin 0.7, AST 27, ALT 20, Alkaline Phosphatase 81, Troponin I < 0.01, Total Protein 6.8, Albumin 4.4, Globulin 2.4, Albumin/Globulin Ratio 1.8 07/04/23 16:27: Troponin I < 0.01 07/04/23 13:40 07/04/23 13:40 Orders (Tests/Meds): ED MEDICATIONS Discontinued Medications Generic Name Dose Route Start Last Admin Trade Name Freq PRN Reason Stop Dose Admin Iopamidol 100 ml 07/04/23 13:48 07/04/23 14:00 Iopamidol-370 (76%);100ml Bottle IV 07/04/23 13:49 100 ml ONCE ONE Administration Sodium Chloride 50 ml 07/04/23 13:48 07/04/23 13:59 0.9 % Sodium Chloride 50 Ml Vial IV 07/04/23 13:49 50 ml ONCE ONE Administration Sodium Chloride 10 ml 07/04/23 13:48 07/04/23 14:00 Sodium Chloride 0.9% 10ml Syr (Rad Only) IV 07/04/23 13:49 10 ml ONCE ONE Administration ORDERS Category Date Time Status CT angio head Stat Cat Scan 07/04/23 13:[address] angio neck Stat Cat Scan 07/04/23 13:[address] head/brain wo con Stat Cat Scan 07/04/23 13:20 Completed Cardiology Consult [Consult to Cardiology] [CONS] Cons 07/04/23 15:00 Active Routine Consult to Cardiology [CONS] Routine Cons 07/04/23 14:56 Active CA 30 day event monitor Stat Exams 07/04/23 16:00 Ordered CXR --portable [XR chest portable] Stat Exams 07/04/23 13:20 Completed CBC w/Auto Diff [Complete Blood Count Auto Diff] Stat Lab 07/04/23 13:40 Completed CMP [Comprehensive Metabolic Panel] Stat Lab 07/04/23 13:40 Completed MG [Magnesium] Stat Lab 07/04/23 13:40 Completed Trop I [Troponin I] Stat Lab 07/04/23 13:40 Completed Troponin I Q3H Lab 07/04/23 16:27 Completed Troponin I Q3H Lab 07/04/23 19:30 Ordered ECG Data Tracing #1: Independently interpreted by me rate is 69, rhythm is regular, axis is leftward deviated, no ST elevation in anatomical contiguous leads. QTc 470. Bifascicular block Medical Decision Narrative: In summary patient is a 87-year-old female past medical history described above who presents emergency department for evaluation of presyncope. Patient is hemodynamically stable nontoxic-appearing upon arrival, afebrile. Differential diagnosis includes vasovagal syncope, cardiogenic syncope, atypical ACS, CVA, among others. Patient does not have any focal neurologic deficits on my assessment. Workup will be conducted with hematologic labs, chest x-ray, EKG, troponin, CT head, CTA head and neck. Initial workup reviewed by me, hematologic labs are nonactionable, no ALONSO or critical electrolyte abnormality, initial troponin undetectably low. Noncontrast CT scan head shows no acute intracranial abnormality. CT of the neck shows no critical stenosis that would explain patient's symptoms, 4 cm is in the left thyroid mass for which outside thyroid ultrasound was recommended. Head CTA pending. Case was discussed with cardiology and they will evaluate the patient for possible cardiogenic syncope. CTA and ultimate disposition pending at time of transfer of care to the oncoming physician, Dr. Kerr. <Kaiser Kerr MD - Last Filed: 07/04/23 17:21> Vital Signs: 07/04/23 13:09 07/04/23 13:59 07/04/23 14:06 Temperature 97.6 F Temperature Source Oral Pulse Rate 70 69 Pulse Rate [Orthostatic Lying Right] Pulse Rate [Orthostatic Sitting Right] Pulse Rate [Orthostatic Standing Right] Pulse Rate [Right Radial] 64 Respiratory Rate 18 Blood Pressure 168/64 H 162/70 H Blood Pressure [Orthostatic Lying Left Arm] Blood Pressure [Orthostatic Sitting Left Arm] Blood Pressure [Orthostatic Standing Left Arm] Blood Pressure [Right Arm] 163/72 H Blood Pressure Mean 98 100 Blood Pressure Mean [Right Arm] 102 Blood Pressure Source [Right Arm] Automatic Cuff Blood Pressure Position [Right Arm] Sitting 02 Sat by Pulse Oximetry 96 96 96 Oxygen Delivery Method Room Air 07/04/23 14:07 07/04/23 14:08 07/04/23 14:16 Temperature Temperature Source Pulse Rate 68 68 Pulse Rate [Orthostatic Lying Right] 67 Pulse Rate [Orthostatic Sitting Right] 67 Pulse Rate [Orthostatic Standing Right] 68 Pulse Rate [Right Radial] Respiratory Rate Blood Pressure 160/70 H 152/62 H Blood Pressure [Orthostatic Lying Left Arm] 162/70 H Blood Pressure [Orthostatic Sitting Left Arm] 160/70 H Blood Pressure [Orthostatic Standing Left Arm] 152/62 H Blood Pressure [Right Arm] Blood Pressure Mean 100 92 Blood Pressure Mean [Right Arm] Blood Pressure Source [Right Arm] Blood Pressure Position [Right Arm] 02 Sat by Pulse Oximetry 95 96 Oxygen Delivery Method 07/04/23 15:01 07/04/23 15:31 07/04/23 16:01 Temperature Temperature Source Pulse Rate 61 68 62 Pulse Rate [Orthostatic Lying Right] Pulse Rate [Orthostatic Sitting Right] Pulse Rate [Orthostatic Standing Right] Pulse Rate [Right Radial] Respiratory Rate 15 17 Blood Pressure 193/72 H 171/77 H 190/86 H Blood Pressure [Orthostatic Lying Left Arm] Blood Pressure [Orthostatic Sitting Left Arm] Blood Pressure [Orthostatic Standing Left Arm] Blood Pressure [Right Arm] Blood Pressure Mean 83 Blood Pressure Mean [Right Arm] Blood Pressure Source [Right Arm] Blood Pressure Position [Right Arm] 02 Sat by Pulse Oximetry 96 96 96 Oxygen Delivery Method 07/04/23 16:28 Temperature Temperature Source Pulse Rate Pulse Rate [Orthostatic Lying Right] Pulse Rate [Orthostatic Sitting Right] Pulse Rate [Orthostatic Standing Right] Pulse Rate [Right Radial] Respiratory Rate 14 Blood Pressure 196/94 H Blood Pressure [Orthostatic Lying Left Arm] Blood Pressure [Orthostatic Sitting Left Arm] Blood Pressure [Orthostatic Standing Left Arm] Blood Pressure [Right Arm] Blood Pressure Mean Blood Pressure Mean [Right Arm] Blood Pressure Source [Right Arm] Blood Pressure Position [Right Arm] 02 Sat by Pulse Oximetry Oxygen Delivery Method Lab Data Lab Results 07/04/23 13:40: WBC 7.4, RBC 4.23, Hgb 12.3, Hct 38.3, MCV 90.7, MCH 29.2, MCHC 32.2, RDW 14.7, Plt Count 194, MPV 8.7, Neut % (Auto) 49.9, Lymph % (Auto) 41.4, [place] % (Auto) 5.4, Eos % (Auto) 2.7, Baso % (Auto) 0.7, Neut # (Auto) 3.7, Lymph # (Auto) 3.1, [place] # (Auto) 0.4, Eos # (Auto) 0.2, Baso # (Auto) 0.1, Sodium 139, Potassium 4.3, Chloride 107, Carbon Dioxide 25, Anion Gap 11.3, BUN 23 H, Creatinine 1.00, Estimated Creat Clear 44, Estimated GFR 53 L, Est GFR ( Amer) 64, Glucose 209 H, Calcium 9.8, Magnesium 1.7, Total Bilirubin 0.7, AST 27, ALT 20, Alkaline Phosphatase 81, Troponin I < 0.01, Total Protein 6.8, Albumin 4.4, Globulin 2.4, Albumin/Globulin Ratio 1.8 07/04/23 16:27: Troponin I < 0.01 Orders (Tests/Meds): ED MEDICATIONS Discontinued Medications Generic Name Dose Route Start Last Admin Trade Name Freq PRN Reason Stop Dose Admin Iopamidol 100 ml 07/04/23 13:48 07/04/23 14:00 Iopamidol-370 (76%);100ml Bottle IV 07/04/23 13:49 100 ml ONCE ONE Administration Sodium Chloride 50 ml 07/04/23 13:48 07/04/23 13:59 0.9 % Sodium Chloride 50 Ml Vial IV 07/04/23 13:49 50 ml ONCE ONE Administration Sodium Chloride 10 ml 07/04/23 13:48 07/04/23 14:00 Sodium Chloride 0.9% 10ml Syr (Rad Only) IV 07/04/23 13:49 10 ml ONCE ONE Administration ORDERS Category Date Time Status CT angio head Stat Cat Scan 07/04/23 13:[address] angio neck Stat Cat Scan 07/04/23 13:[address] head/brain wo con Stat Cat Scan 07/04/23 13:20 Completed Cardiology Consult [Consult to Cardiology] [CONS] Cons 07/04/23 15:00 Active Routine Consult to Cardiology [CONS] Routine Cons 07/04/23 14:56 Active CA 30 day event monitor Stat Exams 07/04/23 16:00 Ordered CXR --portable [XR chest portable] Stat Exams 07/04/23 13:20 Completed CBC w/Auto Diff [Complete Blood Count Auto Diff] Stat Lab 07/04/23 13:40 Completed CMP [Comprehensive Metabolic Panel] Stat Lab 07/04/23 13:40 Completed MG [Magnesium] Stat Lab 07/04/23 13:40 Completed Trop I [Troponin I] Stat Lab 07/04/23 13:40 Completed Troponin I Q3H Lab 07/04/23 16:27 Completed Troponin I Q3H Lab 07/04/23 19:30 Ordered Medical Decision Narrative: In summary patient is a 87-year-old female past medical history described above who presents emergency department for evaluation of presyncope. Patient is hemodynamically stable nontoxic-appearing upon arrival, afebrile. Differential diagnosis includes vasovagal syncope, cardiogenic syncope, atypical ACS, CVA, among others. Patient does not have any focal neurologic deficits on my assessment. Workup will be conducted with hematologic labs, chest x-ray, EKG, troponin, CT head, CTA head and neck. Initial workup reviewed by me, hematologic labs are nonactionable, no ALONSO or critical electrolyte abnormality, initial troponin undetectably low. Noncontrast CT scan head shows no acute intracranial abnormality. CT of the neck shows no critical stenosis that would explain patient's symptoms, 4 cm is in the left thyroid mass for which outside thyroid ultrasound was recommended. Head CTA pending. Case was discussed with cardiology and they will evaluate the patient for possible cardiogenic syncope. CTA and ultimate disposition pending at time of transfer of care to the oncoming physician, Dr. Kerr. Usha: I assumed primary responsibility for this patient after signout from previous physician. On my evaluation, patient still resting comfortably without symptoms. Cardiology was evaluating patient when I first arrived. Did not recommend admission, or further emergent/inpatient management, but did recommend increasing verapamil to 360 mg daily and follow-up tomorrow in clinic, 07/04 for event monitor placement -this is pending negative delta troponin. Patient's labs were independently interpreted, nonactionable hematologic workup. CT head independently interpreted without intracranial abnormality acutely. CTA of the head and neck concerning for bilateral carotid stenosis, right greater than left being severe and moderate, respectively. Patient also has incidental thyroid mass, thyroid studies negative. Patient was placed in observation beginning at 3 PM in order to rule out evolving PR with delta troponins and determine need for admission versus home-going. The patient was provided serial exams and cardiac monitoring while awaiting results. Patient placed on diagnostic cardiac sonographer and continuous pulse ox, initial blood pressure 170/77, heart rate 67, saturating 97% on room air. Independent interpretation of results demonstrated nonactionable delta troponin. On reevaluation, patient resting comfortably in bed. At this time, I feel patient is appropriate for discharge. Total observation time 2 and half hours. Critical Care <Rafat Baez MD - Last Filed: 07/04/23 15:28> Critical Care Time Critical Care Time: No
--- NOTE | 2023-07-04 13:43 | PC.NURSE ---
pt to ct
--- NOTE | 2023-07-04 13:43 | PC.NURSE ---
Pt to CT at this time
[2023-07-04 13:56] LABS: Basophils # 0.1 K/mm3 (0-0.2); Basophils % 0.7 % (0.1-2.0); Eosinophils # 0.2 K/mm3 (0.0-0.4); Eosinophils % 2.7 % (0.1-12.0); Hematocrit 38.3 % (37.0-47.0); Hemoglobin 12.3 g/dL (12.2-16.2); Lymphocytes # 3.1 K/mm3 (0.7-4.5); Lymphocytes % 41.4 % (10-50); Mean Corpuscular HGB Conc 32.2 g/dL (31.8-35.4); Mean Corpuscular Hemoglobin 29.2 pg (27.0-31.2); Mean Corpuscular Volume 90.7 fl (81-99); Mean Platelet Volume 8.7 fl (7.4-10.4); Monocytes # 0.4 K/mm3 (0.1-1.0); Monocytes % 5.4 % (1.7-9.3); Neutrophils # 3.7 K/mm3 (1.8-7.8); Neutrophils % 49.9 % (37.0-80.0); Platelet Count 194 K/mm3 (142-424); Red Blood Count 4.23 M/mm3 (4.20-5.40); Red Cell Distribution Width 14.7 % (11.5-17.5); White Blood Count 7.4 K/mm3 (4.8-10.8)
--- NOTE | 2023-07-04 13:57 | ECG_ITS ---
APPROVED REPORT Exam: Resting ECG HR:69 bpm ECG Measurements Heart Rate 69 AXES RI 245 P 39 QRSd 164 QRS -35 QT 451 T 19 QTc 470 Conclusion SINUS RHYTHM WITH FIRST DEGREE AV BLOCK LEFT AXIS DEVIATION [QRS AXIS < -30] RIGHT BUNDLE BRANCH BLOCK [120+ ms QRS DURATION, UPRIGHT V1, 40+ ms S IN I/aVL/V4/V5/V6] VOLTAGE CRITERIA FOR LVH [MEETS CRITERIA IN ONE OF: R(aVL), S(V1), R(V5), R(V5/V6)+S(V1)] Electronically signed by : ANN MARIE TIJERINA, 07/06/2023 06:10:08
[2023-07-04] MEDS: 0.9 % SODIUM CHLORIDE 50 ML VIAL IV (13:59)
[2023-07-04] MEDS: SODIUM CHLORIDE 0.9% 10ML SYR (RAD ONLY) 10 ML IV (14:00)
[2023-07-04] MEDS: IOPAMIDOL-370 (76%);100ML BOTTLE 100 ML IV (14:00)
[2023-07-04 14:06] LABS: Alanine Aminotransferase 20 U/L (12-78); Albumin Level 4.4 g/dl (3.5-5.0); Albumin/Globulin Ratio 1.8 (1.1-1.8); Alkaline Phosphatase 81 U/L (38-126); Anion Gap 11.3 mEq/L (5-15); Aspartate Amino Transferase 27 U/L (14-36); Bilirubin,Total 0.7 mg/dl (0.2-1.3); Blood Urea Nitrogen 23 mg/dl (7-17); Calcium 9.8 mg/dl (8.4-10.2); Carbon Dioxide 25 mmol/L (22.0-30.0); Chloride 107 mmol/L (98-107); Creatinine Clearance Estimated 44 mL/min (50-200); Estimated Glomerular Filt Rate 53 ml/min (>60); GFR (African American) 64 ML/MIN (>60); Globulin 2.4 g/dL (1.3-3.2); Glucose 209 mg/dl (74-100); Magnesium 1.7 mg/dl (1.6-2.3); Potassium 4.3 mmoL/L (3.5-5.1); Sodium 139 mmol/L (136-145); Total Protein,Serum 6.8 g/dl (6.3-8.2)
[2023-07-04 14:18] LABS: Troponin I < 0.01 ng/ml (0.00-0.034)
--- NOTE | 2023-07-04 14:56 | PC.NURSE ---
SPOKE WITH JOSÉ MIGUEL IN CARDIOLOGY, WILL NOTIFY HODAN OLIVAS
--- NOTE | 2023-07-04 15:09 | PC.NURSE ---
DR DE LEON SPEAKING WITH CARDIOLOGY
--- NOTE | 2023-07-04 15:09 | PC.NURSE ---
speaking to Dee Dee Reed
--- NOTE | 2023-07-04 15:30 | PC.NURSE ---
CARDIOLOGY AT BEDSIDE
--- NOTE | 2023-07-04 15:48 | P.CONCA_ITS ---
History of Present Illness History of Present Illness Consult date: 07/04/23 Requesting physician: Rafat Baez Chief complaint: dizziness History of present illness: This is an 87-year-old female who presented to the emergency department with complaints of dizziness. The patient has a past medical history of coronary artery disease with 5 coronary stents placed recently, hypertension and hyperlipidemia. The patient states that she was sitting at the kitchen table today when she had sudden onset of dizziness. She states that she felt very lightheaded and had tunnel vision. She states that she just did not feel well and her daughter checked her blood pressure and her systolic blood pressure was 115 which is not typical for her. Usually her blood pressure runs extremely high in the 160s or 170s systolic or greater. Her daughter reports that her speech was slurred when she had this dizzy episode but the patient states that her speech was just fine. She denies any chest pain or pressure. She denies any shortness of breath or edema. She denies any fever, chills, nausea, vomiting, diarrhea, PND orthopnea. She states that she was so dizzy that she felt like she was going to pass out but she did not have any syncope. [facility] Disclaimer: The information contained in this section may have been updated after the autumn rodrigez was seen, as this information can be updated by other users. Medical History (Updated 07/04/23 @ 15:53 by Dee Dee Reed APRN) First degree atrioventricular block by electrocardiogram Right bundle branch block Vertebral artery stenosis Stenosis of carotid artery Hypertension CAD (coronary artery disease) HLD (hyperlipidemia) ALONSO (acute kidney injury) HOCM (hypertrophic obstructive cardiomyopathy) Mass of thyroid gland Dizziness Adverse reaction to drug Pancreatitis CHF (congestive heart failure) Abnormal electrocardiogram [ECG] [EKG] Family History Other No significant family history Social History Smoking Status: Never smoker alcohol intake: never substance use type: denies use current occupational status: other Travel in the last 8 weeks: None housing: other Review of Systems Review of Systems Review of systems:: pertinent systems reviewed and negative unless documented below Constitutional Constitutional: Reports system reviewed and no additional complaints, except as documented and Reports lethargy Eyes Eyes: Reports system reviewed and no additional complaints, except as documented, Reports blurry vision, Reports change in vision and Reports loss of vision ENT Ears, Nose, Mouth, and Throat: Reports system reviewed and no additional complaints, except as documented and Reports dizziness *Cardiovascular Cardiovascular: Reports system reviewed and no additional complaints, except as documented, Denies chest pain, Denies dyspnea and Reports lightheadedness *Respiratory Respiratory: Reports system reviewed and no additional complaints, except as documented and Denies dyspnea *Gastrointestinal Gastrointestinal: Reports system reviewed and no additional complaints, except as documented *Genitourinary Genitourinary: Reports system reviewed and no additional complaints, except as documented *Musculoskeletal Musculoskeletal: Reports system reviewed and no additional complaints, except as documented Integumentary/Breasts Skin/Breast: Reports system reviewed and no additional complaints, except as documented *Neurologic Neurologic: Reports system reviewed and no additional complaints, except as documented, Reports dizziness and Reports loss of vision Psychiatric Psychiatric: Reports system reviewed and no additional complaints, except as documented Endocrine Endocrine: Reports system reviewed and no additional complaints, except as documented Hematologic/Lymphatic Hematologic/Lymphatic: Reports system reviewed and no additional complaints, except as documented Allergic/Immunologic Allergic/Immunologic: Reports system reviewed and no additional complaints, except as documented Exam Data for Last 24 hours Vital signs and Labs for Last 24 Hours: Temp Pulse Resp BP Pulse Ox O2 Del Method 97.6 F 61 18 193/72 H 96 Room Air 07/04/23 13:09 07/04/23 15:07/04/23 13:07/04/23 15:07/04/23 15:07/04/23 13:09 Laboratory Results - last 24 hr 07/04/23 13:40: WBC 7.4, RBC 4.23, Hgb 12.3, Hct 38.3, MCV 90.7, MCH 29.2, MCHC 32.2, RDW 14.7, Plt Count 194, MPV 8.7, Neut % (Auto) 49.9, Lymph % (Auto) 41.4, [place] % (Auto) 5.4, Eos % (Auto) 2.7, Baso % (Auto) 0.7, Neut # (Auto) 3.7, Lymph # (Auto) 3.1, [place] # (Auto) 0.4, Eos # (Auto) 0.2, Baso # (Auto) 0.1, Sodium 139, Potassium 4.3, Chloride 107, Carbon Dioxide 25, Anion Gap 11.3, BUN 23 H, Creatinine 1.00, Estimated Creat Clear 44, Estimated GFR 53 L, Est GFR ( Amer) 64, Glucose 209 H, Calcium 9.8, Magnesium 1.7, Total Bilirubin 0.7, AST 27, ALT 20, Alkaline Phosphatase 81, Troponin I < 0.01, Total Protein 6.8, Albumin 4.4, Globulin 2.4, Albumin/Globulin Ratio 1.8 I & O for Last 24 hours: Intake & Output 07/01/23 07/02/23 07/03/23 07/04/23 23:59 23:59 23:59 23:59 Weight 151 lb Narrative: EKG is sinus rhythm with a rate of 69 bpm, first-degree AV block, left axis deviation, right bundle branch block and left ventricular hypertrophy. Constitutional Constitutional: no acute distress and average body habitus *Routine HEENT Exam Head: Present normocephalic and atraumatic ENT: Present mucous membranes moist *Routine Neck Exam Neck: Present supple, full ROM and normal carotid upstroke; Absent JVD, carotid bruit or lymphadenopathy *Routine Respiratory Exam Respiratory: Present CTA bilaterally, normal respiratory effort, able to speak in complete sentences and symmetric chest movement *Routine Cardiovascular Exam Cardiovascular: Present RRR, Normal S1 and Normal S2; Absent murmur or gallop *Routine Abdominal Exam Abdominal: Present soft and normoactive bowel sounds; Absent tenderness, distended or organomegaly *Routine Extremities Exam Extremities: Present full ROM, pulses intact and normal capillary refill; Absent cyanosis, clubbing or edema *Routine Skin Exam Skin: Present intact and warm; Absent erythema *Routine Neurological Exam Neurological: Present alert, oriented X3 and CN II-XII intact; Absent sensory deficit or motor deficit Routine Psychiatric Exam Psychiatric: Present normal affect Meds Home Medications and Allergies Home Medications Medication Instructions Recorded Confirmed Type acetaminophen 500 mg tablet 500 mg PO Q6H PRN Pain 04/24/23 06/27/23 History (Tylenol Extra Strength) aspirin 81 mg tablet,delayed 81 mg PO DAILY #30 tabs 05/23/23 06/27/23 Rx release (Adult Aspirin Regimen) pantoprazole 40 mg tablet,delayed 40 mg PO DAILY #30 tabs 05/25/23 06/27/23 Rx release atorvastatin 80 mg tablet 80 mg PO HS #90 tabs 06/21/23 06/27/23 Rx clopidogrel 75 mg tablet 75 mg PO DAILY #90 tabs 06/21/23 06/27/23 Rx furosemide 20 mg tablet (Lasix) 20 mg PO DAILY #30 tabs 06/21/23 06/27/23 Rx metoprolol tartrate 50 mg tablet 50 mg PO BID #180 tabs 06/21/23 06/27/23 Rx valsartan 320 mg tablet 320 mg PO DAILY #30 tabs 06/21/23 06/27/23 Rx verapamil 240 mg 24 hr 240 mg PO DAILY #90 caps 06/21/23 06/27/23 Rx capsule,extended release verapamil 360 mg 24 hr 360 mg PO DAILY #60 caps 07/04/23 Rx capsule,extended release New Prescriptions to Start Prescriptions: verapamil [facility] Allergies Allergy/AdvReac Type Severity Reaction Status Date / Time diphenhydramine AdvReac Agitated Verified 06/27/23 11:03 [From Benadryl] metformin AdvReac Mild Uncoded 06/27/23 11:03 Assessment and Plan *Assessment and plan (1) Dizziness: Status: Resolved Category: Medical Code(s): R42 - Dizziness and giddiness (2) Pre-syncope: Status: Acute Category: Medical Code(s): R55 - Syncope and collapse (3) CAD (coronary artery disease): Status: Acute Qualifiers: Coronary Disease-Associated Artery/Lesion type: [place] artery [place] vs. transplanted heart: [place] heart Associated angina: with other forms of angina Qualified Code(s): I25.118 - Atherosclerotic heart disease of [place] coronary artery with other forms of angina pectoris Category: Medical Code(s): I25.10 - Atherosclerotic heart disease of [place] coronary artery without angina pectoris (4) Hypertension: Status: Acute Qualifiers: Hypertension type: renovascular hypertension Qualified Code(s): I15.0 - Renovascular hypertension Category: Medical Code(s): I10 - Essential (primary) hypertension (5) HLD (hyperlipidemia): Status: Acute Qualifiers: Hyperlipidemia type: mixed hyperlipidemia Qualified Code(s): E78.2 - Mixed hyperlipidemia Category: Medical Code(s): E78.5 - Hyperlipidemia, unspecified (6) HOCM (hypertrophic obstructive cardiomyopathy): Status: Acute Category: Medical Code(s): I42.1 - Obstructive hypertrophic cardiomyopathy (7) Mass of thyroid gland: Status: Acute Category: Medical Code(s): E07.9 - Disorder of thyroid, unspecified (8) Stenosis of carotid artery: Status: Acute Qualifiers: Laterality: bilateral Qualified Code(s): I65.23 - Occlusion and stenosis of bilateral carotid arteries Category: Medical Code(s): I65.29 - Occlusion and stenosis of unspecified carotid artery (9) Vertebral artery stenosis: Status: Acute Qualifiers: Laterality: bilateral Qualified Code(s): I65.03 - Occlusion and stenosis of bilateral vertebral arteries Category: Medical Code(s): I65.09 - Occlusion and stenosis of unspecified vertebral artery (10) Right bundle branch block: Status: Acute Category: Medical Code(s): I45.10 - Unspecified right bundle-branch block (11) First degree atrioventricular block by electrocardiogram: Status: Acute Category: Medical Code(s): I44.0 - Atrioventricular block, first degree Plan Plan: 1. The patient presented to the emergency department with dizziness. There was concern for cardiogenic presyncope. We did recommend admission to the hospital because she is high risk for cardiogenic presyncope given her underlying coronary artery disease, [place] and right bundle branch block as well as first- degree AV block on EKG. The patient adamantly declines admission and wants to be worked up on an outpatient basis and will come for frequent appointments if that we will keep her out of the hospital. 2. We do recommend the patient leaving with a 30-day event monitor due to her dizziness and presyncope and electrical abnormalities noted on her EKG. 3. She denies any chest pain or pressure her first troponin is negative. No plans for invasive left cardiac catheterization. As long as her second troponin is negative she can be discharged from the hospital. Her coronary artery disease is likely stable. 4. Her blood pressure is elevated. Will increase her verapamil ER to 360 mg p.o. daily for better blood pressure control. 5. Her LDL goal is less than 55. She is on a statin. 6. Continue her current dose of metoprolol, valsartan and Lasix. 7. The patient does have carotid artery stenosis on CT. This is less than 50% bilaterally send no intervention is required. 8. She also has severe vertebral artery stenosis noted on the right and moderate vertebral artery stenosis on the left. Will discuss this with the patient tomorrow and consider referral for intervention for her severe vertebral artery stenosis. Continue aspirin and statin. 9. The patient also has a 4 cm thyroid mass. This will need a dedicated thyroid ultrasound which can be done on an outpatient basis. 10. No further recommendations at this time from a cardiac standpoint. As long as her second troponin is negative the patient can be discharged home with a 30- day event monitor in place. She will follow-up in cardiology clinic tomorrow at [address] Crane. Thank you for the opportunity to help participate in the care of this patient. All recommendations and orders are per Dr. Zapata.
[2023-07-04 17:15] LABS: Troponin I < 0.01 ng/ml (0.00-0.034)
== END 2023-07-04 17:59 | disposition home or self-care (01) ==
PROVIDERS: Emergency Medicine; Emergency Provider Emergency Medicine; PCP Internal Medicine Adolescent Medicine
DX: R42 Dizziness and giddiness (principal); R55 Syncope and collapse; I25.118 Atherosclerotic heart disease of native coronary artery with other forms of angina pectoris; I15.0 Renovascular hypertension; E78.2 Mixed hyperlipidemia; I42.1 Obstructive hypertrophic cardiomyopathy; E07.9 Disorder of thyroid, unspecified; I65.23 Occlusion and stenosis of bilateral carotid arteries; I65.03 Occlusion and stenosis of bilateral vertebral arteries; I45.10 Unspecified right bundle-branch block; I44.69 Other fascicular block; Z95.5 Presence of coronary angioplasty implant and graft
CPT/HCPCS: 70450; 70496; 70498; 71045; 80053; 83735; 84484; 85025; 93005; 99285; Q9967

== ENCOUNTER 2023-07-05 13:38 | Outpatient (CLI) | payer MEDICARE, SELFPAY | END 2023-07-05 23:59 | disposition home or self-care (01) | LOC: RT 13:39 | PROVIDERS: PCP Internal Medicine Adolescent Medicine; Visit Provider Internal Medicine | DX: R42 Dizziness and giddiness (principal); I45.10 Unspecified right bundle-branch block; I44.0 Atrioventricular block, first degree | CPT/HCPCS: 93225 ==

== ENCOUNTER 2023-07-22 11:56 | Inpatient (IN) | payer MEDICARE, SELFPAY ==
[2023-07-22] VITALS (29 sets, daily range): BP systolic 71–157; BP diastolic 32–97; PULSE 42–93; RESP 12–28; TEMP 36.5–36.6; O2SAT 92–100; BMI 29.2; BMI 30.7
[2023-07-22] MEDS: ATROPINE 1MG/10ML SYRINGE (CRASH CART) 0.5 MG IV (12:00)
--- NOTE | 2023-07-22 12:10 | ECG_ITS ---
APPROVED REPORT Exam: Resting ECG HR:42 bpm ECG Measurements Heart Rate 42 AXES QRSd 144 QRS -47 QT 514 T -6 QTc 458 Conclusion UNCERTAIN REGULAR RHYTHM RIGHT BUNDLE BRANCH BLOCK [120+ ms QRS DURATION, UPRIGHT V1, 40+ ms S IN I/aVL/V4/V5/V6] LEFT ANTERIOR FASCICULAR BLOCK [QRS AXIS <= -45, QR IN I, RS IN II] MODERATE VOLTAGE CRITERIA FOR LVH, CONSIDER NORMAL VARIANT [MEETS CRITERIA IN ONE OF: R(aVL), S(V1), R(V5), R(V5/V6)+S(V1)] ABNORMAL ECG Electronically signed by : SHARMILA DE LEON, 07/22/2023 16:18:04
[2023-07-22] MEDS: FENTANYL 250MCG/5ML VIAL 25 MCG IV (12:20)
[2023-07-22] MEDS: LACTATED RINGERS 1000ML 1,000 ML 999 ML IV ×2 (12:30→12:45)
[2023-07-22] MEDS: GLUCAGON 1 MG/ML VIAL 3 MG IV (12:40)
--- NOTE | 2023-07-22 12:42 | PC.NURSE ---
speaking with Dr. Castañeda.
--- NOTE | 2023-07-22 12:46 | PC.NURSE ---
DR SCHUMACHER AT BEDSIDE TO UPDATE PT AND FAMILY
--- NOTE | 2023-07-22 12:50 | HMH.EDGENADL ---
Discharge Plan Disposition Chief Complaint: Dizziness Prescriptions Prescriptions: No Action acetaminophen [Tylenol Extra Strength] 500 mg tablet 500 mg PO Q6H PRN (Reason: Pain) aspirin [Adult Aspirin Regimen] 81 mg tablet,delayed release (DR/EC) 81 mg PO DAILY Qty: 30 5RF clopidogrel 75 mg tablet 75 mg PO DAILY Qty: 90 3RF atorvastatin 80 mg tablet 80 mg PO HS Qty: 90 3RF valsartan 320 mg tablet 320 mg PO DAILY Qty: 30 3RF furosemide [Lasix] 20 mg tablet 20 mg PO DAILY Qty: 30 2RF metoprolol tartrate 50 mg tablet 50 mg PO BID Rx Instructions: 1 tab in the morning and 2 tabs at night pantoprazole 40 mg tablet,delayed release (DR/EC) 40 mg PO DAILY Qty: 30 0RF verapamil 360 mg capsule,ext rel. pellets 24 hr 360 mg PO DAILY Qty: 60 0RF Referrals Follow up/Referrals: Yossi Acosta MD [Primary Care Provider] - See instructions Discharge ED Provider: Darinel Giang General Adult HPI General Chief complaint: Dizziness Stated complaint: low bp weakness Time Seen by Provider: 07/22/23 12:36 Mode of Arrival: Wheelchair Source of Information: Patient Limitations: No Limitations Description of Symptoms (Recalled from ER Triage Doc. by RN): Patient reports low bp and dizziness that started this morning. states he had stents placed approx 2 weeks ago and that they have been changing up her blood pressure medications since then. History of Present Illness HPI narrative: Patient is an 88-year-old female presenting today with sudden dizziness and low blood pressure that started about 2 hours prior to arrival. Recently had been in our hospital with a left heart cath after an abnormal stress test where she had an LAD stent that was placed. She is on metoprolol. She is not on other beta-blockers but is on verapamil. She has altered mental status and very lethargic according to her family. Related Data Home Medications Medication Instructions Recorded Confirmed acetaminophen 500 mg tablet 500 mg PO Q6H PRN Pain 04/24/23 07/22/23 (Tylenol Extra Strength) metoprolol tartrate 50 mg tablet 50 mg PO BID 07/05/23 07/22/23 Previous Rx's Medication Instructions Recorded aspirin 81 mg tablet,delayed 81 mg PO DAILY #30 tabs 05/23/23 release (Adult Aspirin Regimen) pantoprazole 40 mg tablet,delayed 40 mg PO DAILY #30 tabs 05/25/23 release atorvastatin 80 mg tablet 80 mg PO HS #90 tabs 06/21/23 clopidogrel 75 mg tablet 75 mg PO DAILY #90 tabs 06/21/23 furosemide 20 mg tablet (Lasix) 20 mg PO DAILY #30 tabs 06/21/23 valsartan 320 mg tablet 320 mg PO DAILY #30 tabs 06/21/23 verapamil 360 mg 24 hr 360 mg PO DAILY #60 caps 07/04/23 capsule,extended release Allergies Allergy/AdvReac Type Severity Reaction Status Date / Time diphenhydramine AdvReac Agitated Verified 07/05/23 13:01 [From Benadryl] metformin AdvReac Mild Uncoded 07/05/23 13:01 [facility] Disclaimer: The information contained in this section may have been updated after the patient was seen, as this information can be updated by other users. Medical History (Updated 07/05/23 @ 13:27 by Joss Rodriguez RN) Dizziness First degree atrioventricular block by electrocardiogram Right bundle branch block Vertebral artery stenosis Stenosis of carotid artery Hypertension CAD (coronary artery disease) HLD (hyperlipidemia) ALONSO (acute kidney injury) HOCM (hypertrophic obstructive cardiomyopathy) Mass of thyroid gland Adverse reaction to drug Pancreatitis CHF (congestive heart failure) Abnormal electrocardiogram [ECG] [EKG] Family History Other No significant family history Social History Smoking Status: Never smoker alcohol intake: never substance use type: denies use current occupational status: other Travel in the last 8 weeks: None housing: other ROS Obtained: Yes All systems reviewed & no additional complaints except as documented Physical Exam General General appearance: lethargic Respiratory Respiratory exam: Present normal lung sounds bilaterally; Absent respiratory distress Cardiovascular Cardiovascular exam: Present bradycardia and other (Very poor perfusion cool extremities) Neurological Exam Neurological exam: Present alert and other (Encephalopathic) Medical Decision Making Stephen Inquiry Pt receiving controlled substance: No Vital Signs: 07/22/23 11:58 Temperature 97.9 F Temperature Source Oral Pulse Rate [Radial] 42 L Respiratory Rate 16 Blood Pressure [Right Arm] 93/32 L Blood Pressure Mean [Right Arm] 52 Blood Pressure Source [Right Arm] Automatic Cuff Blood Pressure Position [Right Arm] Sitting 02 Sat by Pulse Oximetry 96 Oxygen Delivery Method Room Air Lab Data Lab results reviewed: Yes I reviewed the patient's lab results. Lab Results 07/22/23 12:15: WBC 14.3 H, RBC 4.11 L, Hgb 12.0 L, Hct 39.0, MCV 94.9, MCH 29.2, MCHC 30.8 L, RDW 14.8, Plt Count 289, MPV 8.9, Neut % (Auto) 67.5, Lymph % (Auto) 27.1, [place] % (Auto) 2.9, Eos % (Auto) 1.8, Baso % (Auto) 0.7, Neut # (Auto) 9.6 H, Lymph # (Auto) 3.9, [place] # (Auto) 0.4, Eos # (Auto) 0.3, Baso # (Auto) 0.1, Sodium 137, Potassium 5.1, Chloride 106, Carbon Dioxide 19 L, Anion Gap 17.1 H, BUN 18 H, Creatinine 1.20 H, Estimated Creat Clear 36, Estimated GFR 43 L, Est GFR ( Amer) 52 L, Glucose 295 H, Calcium 9.7, Magnesium 1.6, Total Bilirubin 0.8, AST 39 H, ALT 47, Alkaline Phosphatase 96, Troponin I < 0.01, Total Protein 6.7, Albumin 4.0, Globulin 2.7, Albumin/Globulin Ratio 1.5, TSH 0.95 07/22/23 12:15 07/22/23 12:15 Orders (Tests/Meds): ED MEDICATIONS Generic Name Dose Route Start Last Admin Trade Name Freq PRN Reason Stop Dose Admin Epinephrine HCl 5 mg/ Sodium 255 mls @ 6.12 mls/hr 07/22/23 13:00 07/22/23 13:44 Chloride IV 08/21/23 12:59 2 mcg/min .Q24H SHIRA 6.12 mls/hr Administration Protocol 2 MCG/MIN Discontinued Medications Generic Name Dose Route Start Last Admin Trade Name Freq PRN Reason Stop Dose Admin Glucagon 3 mg 07/22/23 12:37 Glucagon 1 Mg/Ml Vial IV 07/22/23 12:38 ONCE ONE Lactated Ringer's 1,000 mls @ 999 mls/hr 07/22/23 12:45 Lactated Ringer's 1000 Ml Bag IV 07/22/23 13:45 .Q1H1M [facility] ORDERS Category Date Time Status CBC w/Auto Diff [Complete Blood Count Auto Diff] Stat Lab 07/22/23 12:15 Completed CMP [Comprehensive Metabolic Panel] Stat Lab 07/22/23 12:15 Completed Magnesium Stat Lab 07/22/23 12:15 Completed TSH [Thyroid Stimulating Hormone] Stat Lab 07/22/23 12:15 Completed Trop I [Troponin I] Stat Lab 07/22/23 12:15 Completed Troponin I Q3H Lab 07/22/23 15:45 Ordered Troponin I Q3H Lab 07/22/23 18:45 Ordered ECG Data Tracing #1: I reviewed this ECG and interpreted as documented below: Ventricular rate of 42 narrow complex no discernible P waves appears to be junctional bradycardia no acute ischemic changes noted I do not discern any P waves no definitive A-V dissociation or complete heart block there does appear to be a right bundle josephine block and left anterior fascicular block this is an abnormal EKG Medical Decision Narrative: 88-year-old presenting today with symptomatic bradycardia. She is on a beta-natalie and calcium channel natalie IV glucagon was administered IV fluids initiated patient severely symptomatic hypotensive with blood pressures 70 systolic with poor perfusion and poor mentation she is unstable therefore we chose to proceed with transcutaneous pacing. She is currently requiring 60 mA at a rate of 70 after about 10 minutes and this her blood pressure has improved. Awaiting labs. I did discuss the case with Dr. Castañeda he likely will need to come in and place transvenous pacer but we will reassess shortly. We did initially order IV epinephrine but we will hold off on that at the moment because her blood pressure was improving prior to this administration. Reassessment 147 patient intermittently is hypotensive have initiated the epinephrine drip. Patient was admitted to hospital medicine for further evaluation and management. Procedures Miscellaneous Procedure Procedure Performed: Transcutaneous pacing Pads were placed AP patient was on a monitor escalated milliamps until there is physiologic electronic capture patient tolerated procedure well. Critical Care Critical Care Time Critical Care Time: Yes Attestation: On 07/22/23, the high probability of a clinically significant, sudden or life threatening deterioration of the following system(s) required my full and direct attention, intervention and personal management. The time I documented below is in addition to time spent performing reported procedures but includes the following listed in this critical care notation. Total Time Total Critical Care Time: 35
[2023-07-22 12:54] LABS: Basophils # 0.1 K/mm3 (0-0.2); Basophils % 0.7 % (0.1-2.0); Eosinophils # 0.3 K/mm3 (0.0-0.4); Eosinophils % 1.8 % (0.1-12.0); Lymphocytes # 3.9 K/mm3 (0.7-4.5); Lymphocytes % 27.1 % (10-50); Mean Corpuscular HGB Conc 30.8 g/dL (31.8-35.4); Mean Corpuscular Hemoglobin 29.2 pg (27.0-31.2); Mean Corpuscular Volume 94.9 fl (81-99); Mean Platelet Volume 8.9 fl (7.4-10.4); Monocytes # 0.4 K/mm3 (0.1-1.0); Monocytes % 2.9 % (1.7-9.3); Neutrophils # 9.6 K/mm3 (1.8-7.8); Neutrophils % 67.5 % (37.0-80.0); Platelet Count 289 K/mm3 (142-424); Red Blood Count 4.11 M/mm3 (4.20-5.40); Red Cell Distribution Width 14.8 % (11.5-17.5); White Blood Count 14.3 K/mm3 (4.8-10.8)
[2023-07-22 12:58] LABS: Chloride 106 mmol/L (98-107)
[2023-07-22 12:59] LABS: Potassium 5.1 mmoL/L (3.5-5.1); Sodium 137 mmol/L (136-145)
[2023-07-22] MEDS: ONDANSETRON 4MG/2ML VIAL 4 MG IV (13:00)
[2023-07-22 13:01] LABS: Alanine Aminotransferase 47 U/L (12-78); Aspartate Amino Transferase 39 U/L (14-36); Blood Urea Nitrogen 18 mg/dl (7-17); Creatinine Clearance Estimated 36 mL/min (50-200); Estimated Glomerular Filt Rate 43 ml/min (>60); GFR (African American) 52 ML/MIN (>60); Magnesium 1.6 mg/dl (1.6-2.3)
[2023-07-22 13:02] LABS: Albumin/Globulin Ratio 1.5 (1.1-1.8); Alkaline Phosphatase 96 U/L (38-126); Anion Gap 17.1 mEq/L (5-15); Bilirubin,Total 0.8 mg/dl (0.2-1.3); Calcium 9.7 mg/dl (8.4-10.2); Carbon Dioxide 19 mmol/L (22.0-30.0); Globulin 2.7 g/dL (1.3-3.2); Glucose 295 mg/dl (74-100); Total Protein,Serum 6.7 g/dl (6.3-8.2)
[2023-07-22 13:15] LABS: Troponin I < 0.01 ng/ml (0.00-0.034)
--- NOTE | 2023-07-22 13:32 | PC.NURSE ---
IT TRAINER NOTIFIED OF ADMISSION
[2023-07-22 13:33] LABS: Thyroid Stimulating Hormone 0.95 uIU/mL (0.465-4.68)
[2023-07-22] MEDS: EPINEPHrine 5 MG in 0.9 % SODIUM CHLORIDE 250 ML 6.12000000000000011 MG IV (13:44)
--- NOTE | 2023-07-22 14:21 | ECG_ITS ---
APPROVED REPORT Exam: Resting ECG HR:87 bpm ECG Measurements Heart Rate 87 AXES NC 174 P 62 QRSd 154 QRS -60 QT 399 T 61 QTc 444 Conclusion SINUS RHYTHM RIGHT BUNDLE BRANCH BLOCK [120+ ms QRS DURATION, UPRIGHT V1, 40+ ms S IN I/aVL/V4/V5/V6] LEFT ANTERIOR FASCICULAR BLOCK [QRS AXIS <= -45, QR IN I, RS IN II] ABNORMAL ECG Electronically signed by : SHARMILA DE LEON, 07/22/2023 16:15:22
--- NOTE | 2023-07-22 14:25 | PC.NURSE ---
report given to Jossei JONES
--- NOTE | 2023-07-22 14:55 | PC.NURSE ---
PT to med surg by stretcher at this time
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
[2023-07-22 16:24] LABS: Troponin I < 0.01 ng/ml (0.00-0.034)
--- NOTE | 2023-07-22 17:12 | EXP.HP ---
History of Present Illness *Admission Date: 07/22/23 *Reason for visit:: Bradycardia *History of present illness: Patient is a 88-year-old female with past medical history of CAD hypertension hyperlipidemia who presents to the hospital due to dizziness. Patient mentions she has been feeling like passing out intermittently. Patient was noticed to have bradycardia, patient was admitted for possible pacemaker placement. At time of my evaluation patient denies shortness of breath nausea vomiting diarrhea constipation dysuria fevers chills. [facility] Disclaimer: The information contained in this section may have been updated after the patient was seen, as this information can be updated by other users. Medical History (Updated 07/05/23 @ 13:27 by Joss Rodriguez RN) Dizziness First degree atrioventricular block by electrocardiogram Right bundle branch block Vertebral artery stenosis Stenosis of carotid artery Hypertension CAD (coronary artery disease) HLD (hyperlipidemia) ALONSO (acute kidney injury) HOCM (hypertrophic obstructive cardiomyopathy) Mass of thyroid gland Adverse reaction to drug Pancreatitis CHF (congestive heart failure) Abnormal electrocardiogram [ECG] [EKG] Family History Other No significant family history Social History (Updated 07/22/23 @ 15:42 by Lynn Montana RN) Smoking Status: Never smoker alcohol intake: never substance use type: denies use current occupational status: other Travel in the last 8 weeks: None housing: other Review of Systems Review of Systems Review of systems:: pertinent systems reviewed and negative unless documented below Meds Home Medications and Allergies Home Medications Medication Instructions Recorded Confirmed Type acetaminophen 500 mg tablet 500 mg PO Q6H PRN Pain 04/24/23 07/22/23 History (Tylenol Extra Strength) aspirin 81 mg tablet,delayed 81 mg PO DAILY #30 tabs 05/23/23 07/22/23 Rx release (Adult Aspirin Regimen) pantoprazole 40 mg tablet,delayed 40 mg PO DAILY #30 tabs 05/25/23 07/22/23 Rx release atorvastatin 80 mg tablet 80 mg PO HS #90 tabs 06/21/23 07/22/23 Rx clopidogrel 75 mg tablet 75 mg PO DAILY #90 tabs 06/21/23 07/22/23 Rx furosemide 20 mg tablet (Lasix) 20 mg PO DAILY #30 tabs 06/21/23 07/22/23 Rx valsartan 320 mg tablet 320 mg PO DAILY #30 tabs 06/21/23 07/22/23 Rx verapamil 360 mg 24 hr 360 mg PO DAILY #60 caps 07/04/23 07/22/23 Rx capsule,extended release metoprolol tartrate 50 mg tablet 50 mg PO BID 07/05/23 07/22/23 History New Prescriptions to Start Prescriptions: Allergies Allergy/AdvReac Type Severity Reaction Status Date / Time diphenhydramine AdvReac Agitated Verified 07/05/23 13:01 [From Benadaureal] metformin AdvReac Mild Uncoded 07/05/23 13:01 Exam Data for Last 24 hours Vital signs and Labs for Last 24 Hours: Temp Pulse Resp BP Pulse Ox O2 Del Method O2 Flow Rate 97.9 F 89 26 H 126/73 95 Nasal Cannula 3 07/22/23 15:00 07/22/23 16:45 07/22/23 16:45 07/22/23 16:45 07/22/23 16:45 07/22/23 16:53 07/22/23 16:53 Laboratory Results - last 24 hr 07/22/23 12:15: WBC 14.3 H, RBC 4.11 L, Hgb 12.0 L, Hct 39.0, MCV 94.9, MCH 29.2, MCHC 30.8 L, RDW 14.8, Plt Count 289, MPV 8.9, Neut % (Auto) 67.5, Lymph % (Auto) 27.1, [place] % (Auto) 2.9, Eos % (Auto) 1.8, Baso % (Auto) 0.7, Neut # (Auto) 9.6 H, Lymph # (Auto) 3.9, [place] # (Auto) 0.4, Eos # (Auto) 0.3, Baso # (Auto) 0.1, Sodium 137, Potassium 5.1, Chloride 106, Carbon Dioxide 19 L, Anion Gap 17.1 H, BUN 18 H, Creatinine 1.20 H, Estimated Creat Clear 36, Estimated GFR 43 L, Est GFR ( Amer) 52 L, Glucose 295 H, Calcium 9.7, Magnesium 1.6, Total Bilirubin 0.8, AST 39 H, ALT 47, Alkaline Phosphatase 96, Troponin I < 0.01, Total Protein 6.7, Albumin 4.0, Globulin 2.7, Albumin/Globulin Ratio 1.5, TSH 0.95 07/22/23 15:40: Troponin I < 0.01 I & O for Last 24 hours: Intake & Output 07/19/23 07/20/23 07/21/23 07/22/23 23:59 23:59 23:59 23:59 Intake Total 64.362 / 64.362 Balance 64.362 / 64.362 Weight 70.851 kg Constitutional Constitutional: no acute distress *Routine HEENT Exam Head: Present normocephalic Eye: Present EOMI and PERRL ENT: Present mucous membranes moist *Routine Neck Exam Neck: Present supple; Absent lymphadenopathy *Routine Respiratory Exam Respiratory: Present CTA bilaterally *Routine Cardiovascular Exam Cardiovascular: Present bradycardia *Routine Abdominal Exam Abdominal: Present soft and normoactive bowel sounds; Absent tenderness *Routine Rectal Exam Rectal:: deferred *Routine Genitalia Exam Genitalia:: deferred *Routine Extremities Exam Extremities: Absent cyanosis, clubbing or edema *Routine Skin Exam Skin: Present warm; Absent rash *Routine Neurological Exam Neurological: Present alert and oriented X3 Assessment and Plan *Assessment and plan (1) Dizziness: Status: Acute Category: Medical Code(s): R42 - Dizziness and giddiness (2) Hypertension: Status: Acute Qualifiers: Hypertension type: renovascular hypertension Qualified Code(s): I15.0 - Renovascular hypertension Category: Medical Code(s): I10 - Essential (primary) hypertension (3) CAD (coronary artery disease): Status: Acute Qualifiers: Associated angina: with other forms of angina Coronary Disease-Associated Artery/Lesion type: [place] artery [place] vs. transplanted heart: [place] heart Qualified Code(s): I25.118 - Atherosclerotic heart disease of [place] coronary artery with other forms of angina pectoris Category: Medical Code(s): I25.10 - Atherosclerotic heart disease of [place] coronary artery without angina pectoris (4) HLD (hyperlipidemia): Status: Acute Qualifiers: Hyperlipidemia type: mixed hyperlipidemia Qualified Code(s): E78.2 - Mixed hyperlipidemia Category: Medical Code(s): E78.5 - Hyperlipidemia, unspecified Plan Patient is a 88-year-old female with past medical history of CAD hypertension hyperlipidemia who presents to the hospital due to dizziness. Patient mentions she has been feeling like passing out intermittently. Patient was noticed to have bradycardia, patient was admitted for possible pacemaker placement. At time of my evaluation patient denies shortness of breath nausea vomiting diarrhea constipation dysuria fevers chills. Assessment and plan Dizziness likely due to symptomatic bradycardia Consult cardiology Monitor on cardiac telemetry N.p.o. after midnight for possible pacemaker placement Hold AV nathaniel blocking agents History of CAD Hypertension Resume home aspirin, Valsartan atorvastatin Plavix DVT PPx - Heparin
[2023-07-22] MEDS: HEPARIN SODIUM 5,000 UNIT/ML VIAL 5000 UNIT SQ ×2 (17:17→21:30)
[2023-07-22 19:03] LABS: Troponin I 0.04 ng/ml (0.00-0.034)
--- NOTE | 2023-07-22 20:53 | PC.NURSE ---
PER TELEGRAPH LINEMAN, PT IS MED SURG TELE NOW; TRANSFER OF CARE TO BELL, RN
[2023-07-22] MEDS: ATORVASTATIN 40MG TABLET 80 MG PO (21:22)
[2023-07-22 23:57] LABS: Troponin I 0.48 ng/ml (0.00-0.034)
--- NOTE | 2023-07-22 23:59 | PC.NURSE ---
Lab called with critical troponin of 0.48, notified Austyn Maurice APRN, Dr. Castañeda.
[2023-07-23] VITALS (7 sets, daily range): BP systolic 129–162; BP diastolic 67–82; PULSE 69–91; RESP 12–25; TEMP 36.6–37; O2SAT 93–97; BMI 31.1
--- NOTE | 2023-07-23 00:02 | PC.NURSE ---
@[id number] NANDA CALLED TO GET AN UPDATE ON 218; THIS RN UPDATED MD BEST POSSIBLE D/T HAVING PT AT THE START OF THIS RN'S SHIFT; POST UPDATE, GAVE A VERBAL ORDER FOR AM ECHO; VERBAL ORDER GIVEN TO BELL RN AND SHE PLACED AM ECHO ORDER PER TELEPHONE ORDER FROM NANDA.
--- NOTE | 2023-07-23 00:06 | PC.NURSE ---
Call back from Dr. Castañeda with plans to cath in am, pt can eat breakfast.
[2023-07-23] MEDS: HEPARIN SODIUM 5,000 UNIT/ML VIAL 5000 UNIT SQ ×3 (05:59→21:23)
--- NOTE | 2023-07-23 06:00 | CA_ITS ---
APPROVED REPORT EXAM: Limited 2D Echocardiogram Sales Exhibitor: Shakila Asencio CRT Ht: 4 ft 11 in Wt: 156lbs BSA: 1.66 BP: 126/73 mmHg Indications: Abnormal ECG, Hyperlipidemia, Hypertension/HDD, stents 2 wks ago, HOCM, ECHO 70% ON ECHO 05/07/23 M-Mode Dimensions RVDd 2.24 cm (0.9-2.6) LVDd 4.02 cm (3.5-5.7) LVDs 2.74 cm (3.5-5.7) IVSd 1.40 cm (0.6-1.1) PWd 1.12 cm (0.6-1.1) EF (Teich) 60.50% FS 31.80% EDV (Teich) 70.80 mL ESV (Teich) 28.00 mL Other Information Study Quality: Fair Conclusion This is a limited TTE to evaluate for LVEF. Limited windows were obtained. Technically difficult study. The left ventricle is normal in size. There is marked increase in LV wall thickness. IVSd 1.7 cm. The LV systolic function is hyperdynamic. No regional wall motion abnormalities are noted. LVEF is > 70%. In the setting of marked increased LV wall thickness, further evaluation with cardiac MRI (HCM protocol) is recommended. Electronically signed by : Rosa Maria Zapata MD 07/23/2023 13:07:43
--- NOTE | 2023-07-23 06:51 | PC.NURSE ---
lab reported pt has ESBL in urine, attempted to contact Austyn Maurice APRN, no answer at this time will attempt again.
[2023-07-23 07:32] LABS: Anion Gap 12.1 mEq/L (5-15); Blood Urea Nitrogen 14 mg/dl (7-17); Carbon Dioxide 24 mmol/L (22.0-30.0); Chloride 107 mmol/L (98-107); Creatinine Clearance Estimated 46 mL/min (50-200); Estimated Glomerular Filt Rate 68 ml/min (>60); GFR (African American) 82 ML/MIN (>60); Glucose 95 mg/dl (74-100); Potassium 4.1 mmoL/L (3.5-5.1); Sodium 139 mmol/L (136-145)
[2023-07-23 07:33] LABS: Basophils % 0.7 % (0.1-2.0); Eosinophils # 0.1 K/mm3 (0.0-0.4); Eosinophils % 1.3 % (0.1-12.0); Hematocrit 33.6 % (37.0-47.0); Lymphocytes # 2.6 K/mm3 (0.7-4.5); Lymphocytes % 40.7 % (10-50); Mean Corpuscular HGB Conc 31.9 g/dL (31.8-35.4); Mean Corpuscular Hemoglobin 29.1 pg (27.0-31.2); Mean Corpuscular Volume 91.1 fl (81-99); Mean Platelet Volume 9.1 fl (7.4-10.4); Monocytes # 0.3 K/mm3 (0.1-1.0); Monocytes % 4.3 % (1.7-9.3); Neutrophils # 3.4 K/mm3 (1.8-7.8); Neutrophils % 53.1 % (37.0-80.0); Platelet Count 203 K/mm3 (142-424); Red Blood Count 3.69 M/mm3 (4.20-5.40); White Blood Count 6.4 K/mm3 (4.8-10.8)
[2023-07-23 07:59] LABS: Hemoglobin 10.7 g/dL (12.2-16.2)
[2023-07-23] MEDS: CLOPIDOGREL 75MG TAB 75 MG PO (08:44)
[2023-07-23] MEDS: ASPIRIN EC 81MG TABLET 81 MG PO (08:44)
[2023-07-23] MEDS: IRBESARTAN 300MG TABLET 300 MG PO (08:45)
[2023-07-23] MEDS: PANTOPRAZOLE 40MG TABLET 40 MG PO (08:45)
--- NOTE | 2023-07-23 11:00 | PC.NURSE ---
disregard the note sent previously
--- NOTE | 2023-07-23 11:16 | HMH.PHAINT1 ---
Pharmacy Intervention Comments: MEDICATION RECONCILIATION COMPLETED ON PATIENT USING EXTERNAL FILL HISTORY FROM PHARMACY AND LIST FROM CARDIOLOGY OFFICE. -JJ CLARKE, YUMIKOD
[2023-07-23] MEDS: GADOTERIDOL INJ 17ML SYRINGE 17 ML IV (13:25)
--- NOTE | 2023-07-23 13:39 | EXP.CARD.CON ---
History of Present Illness History of Present Illness Consult date: 07/23/23 Requesting physician: Delphine Garcia Chief complaint: Dizziness Additional Medical History:: 1. Carotid and vertebral artery disease A. Neck CTA, 07/04/2023, FADY 50%, LICA 35%, right vertebral 70-99%, left vertebral 50-70% 2. CAD A. Lithotripsy with ERON to RCA, 05/2023 B. ERON to LAD and circumflex , June, 3. Hypertension with hypertrophic cardiomyopathy A. Normal renogram June 2023 B. Echocardiogram, 05/2023, EF > 70% with increased intracavitary gradient and increased LV wall thickness, chordal PHILLY of MV, moderate TR, RVSP 40-45 mmHg 4. Hyperlipidemia A. statin therapy 5. Diabetes mellitus type 2 A. Hemoglobin A1c, 8.0, 06/21/2023 6. Thyroid mass, 4 cm 7. Abnormal EKG with bifascicular block (RBBB, LAFB) noted on 2019 tracing History of present illness: 88-year-old presenting today with symptomatic bradycardia. She is on a beta-natalie and calcium channel natalie IV glucagon was administered IV fluids initiated patient severely symptomatic hypotensive with blood pressures 70 systolic with poor perfusion and poor mentation she is unstable therefore we chose to proceed with transcutaneous pacing. She is currently requiring 60 mA at a rate of 70 after about 10 minutes and this her blood pressure has improved. Awaiting labs. I did discuss the case with Dr. Castañeda he likely will need to come in and place transvenous pacer but we will reassess shortly. We did initially order IV epinephrine but we will hold off on that at the moment because her blood pressure was improving prior to this administration. Reassessment 147 patient intermittently is hypotensive have initiated the epinephrine drip. Patient was admitted to hospital medicine for further evaluation and management. The above per SAVANNA Hoover MD This a.m. patient is off of epinephrine with blood pressure in the 120s and heart rate in the 80s. She denies any lightheadedness or dizziness at this time. She feels like the recent increase in her verapamil to 360 mg daily preempted her feeling of dizziness. The increase in the verapamil was in response to her diagnosis of hypertrophic cardiomyopathy. Patient was seen by Dr. Crane recently with plans to obtain an MRI for further evaluation. Also patient has known vertebral disease which may also be a cause for her dizziness. She was being sent to a neuroradiologist for further assessment and evaluation. [facility] Disclaimer: The information contained in this section may have been updated after the patient was seen, as this information can be updated by other users. Medical History (Updated 07/05/23 @ 13:27 by Joss Rodriguez RN) Dizziness First degree atrioventricular block by electrocardiogram Right bundle branch block Vertebral artery stenosis Stenosis of carotid artery Hypertension CAD (coronary artery disease) HLD (hyperlipidemia) ALONSO (acute kidney injury) HOCM (hypertrophic obstructive cardiomyopathy) Mass of thyroid gland Adverse reaction to drug Pancreatitis CHF (congestive heart failure) Abnormal electrocardiogram [ECG] [EKG] Family History Other No significant family history Social History (Updated 07/22/23 @ 15:42 by Lynn Montana RN) Smoking Status: Never smoker alcohol intake: never substance use type: denies use current occupational status: other Travel in the last 8 weeks: None housing: other Review of Systems Review of Systems Review of systems:: pertinent systems reviewed and negative unless documented below ENT Ears, Nose, Mouth, and Throat: Reports dizziness *Cardiovascular Cardiovascular: Denies chest pain and Denies dyspnea *Respiratory Respiratory: Denies dyspnea *Neurologic Neurologic: Reports dizziness Exam Data for Last 24 hours Vital signs and Labs for Last 24 Hours: Temp Pulse Resp BP Pulse Ox O2 Del Method O2 Flow Rate 98.0 F 80 21 162/79 H 94 L Room Air 3 07/23/23 12:00 07/23/23 12:00 07/23/23 12:00 07/23/23 12:00 07/23/23 12:00 07/23/23 12:00 07/22/23 18:00 Laboratory Results - last 24 hr 07/22/23 15:40: Troponin I < 0.01 07/22/23 18:30: Troponin I 0.04 H 07/22/23 23:05: Troponin I 0.48 H 07/23/23 06:14: WBC 6.4 D, RBC 3.69 L, Hgb 10.7 L D, Hct 33.6 L, MCV 91.1, MCH 29.1, MCHC 31.9, RDW 15.0, Plt Count 203 D, MPV 9.1, Neut % (Auto) 53.1, Lymph % (Auto) 40.7, [place] % (Auto) 4.3, Eos % (Auto) 1.3, Baso % (Auto) 0.7, Neut # (Auto) 3.4, Lymph # (Auto) 2.6, [place] # (Auto) 0.3, Eos # (Auto) 0.1, Baso # (Auto) 0.0, Sodium 139, Potassium 4.1, Chloride 107, Carbon Dioxide 24, Anion Gap 12.1, BUN 14, Creatinine 0.80 D, Estimated Creat Clear 46, Estimated GFR 68, Est GFR ( Amer) 82 D, Glucose 95 D, Calcium 9.0 I & O for Last 24 hours: Intake & Output 07/21/23 07/22/23 07/23/23 07/24/23 11:59 11:59 11:59 11:59 Intake Total 427.320 / 427.320 0 / 0 Output Total 650 / 650 0 / 0 Balance -222.680 / -222.680 0 / 0 Weight 150 lb 158 lb 6.4 oz Constitutional Constitutional: no acute distress *Routine Respiratory Exam Respiratory: Present CTA bilaterally *Routine Cardiovascular Exam Cardiovascular: Present RRR and murmur; Absent gallop or rubs *Routine Neurological Exam Neurological: Present alert, oriented X3 and CN II-XII intact Meds Home Medications and Allergies Home Medications Medication Instructions Recorded Confirmed Type acetaminophen 500 mg tablet 500 mg PO Q6HP PRN Mild Pain 04/24/23 07/23/23 History (Tylenol Extra Strength) (Scale Score 1-4) aspirin 81 mg tablet,delayed 81 mg PO DAILY #30 tabs 05/23/23 07/23/23 Rx release (Adult Aspirin Regimen) pantoprazole 40 mg tablet,delayed 40 mg PO DAILY #30 tabs 05/25/23 07/23/23 Rx release atorvastatin 80 mg tablet 80 mg PO HS #90 tabs 06/21/23 07/23/23 Rx clopidogrel 75 mg tablet 75 mg PO DAILY #90 tabs 06/21/23 07/23/23 Rx furosemide 20 mg tablet (Lasix) 20 mg PO DAILY #30 tabs 06/21/23 07/23/23 Rx valsartan 320 mg tablet 320 mg PO DAILY #30 tabs 06/21/23 07/23/23 Rx verapamil 360 mg 24 hr 360 mg PO DAILY #60 caps 07/04/23 07/23/23 Rx capsule,extended release metoprolol tartrate 50 mg tablet 50 mg PO BID 07/05/23 07/23/23 History New Prescriptions to Start Prescriptions: Allergies Allergy/AdvReac Type Severity Reaction Status Date / Time metformin AdvReac Mild Diarrhea Verified 07/23/23 13:45 diphenhydramine AdvReac Agitated Verified 07/05/23 13:01 [From Benadryl] Assessment and Plan *Assessment and plan (1) Dizziness: Status: Acute Category: Medical Code(s): R42 - Dizziness and giddiness (2) Right bundle branch block: Status: Acute Category: Medical Code(s): I45.10 - Unspecified right bundle-branch block (3) Vertebral artery stenosis: Status: Acute Qualifiers: Laterality: bilateral Qualified Code(s): I65.03 - Occlusion and stenosis of bilateral vertebral arteries Category: Medical Code(s): I65.09 - Occlusion and stenosis of unspecified vertebral artery (4) Stenosis of carotid artery: Status: Acute Qualifiers: Laterality: bilateral Qualified Code(s): I65.23 - Occlusion and stenosis of bilateral carotid arteries Category: Medical Code(s): I65.29 - Occlusion and stenosis of unspecified carotid artery (5) Hypertension: Status: Acute Qualifiers: Hypertension type: renovascular hypertension Qualified Code(s): I15.0 - Renovascular hypertension Category: Medical Code(s): I10 - Essential (primary) hypertension (6) CAD (coronary artery disease): Status: Acute Qualifiers: Associated angina: with other forms of angina Coronary Disease-Associated Artery/Lesion type: [place] artery [place] vs. transplanted heart: [place] heart Qualified Code(s): I25.118 - Atherosclerotic heart disease of [place] coronary artery with other forms of angina pectoris Category: Medical Code(s): I25.10 - Atherosclerotic heart disease of [place] coronary artery without angina pectoris (7) HLD (hyperlipidemia): Status: Acute Qualifiers: Hyperlipidemia type: mixed hyperlipidemia Qualified Code(s): E78.2 - Mixed hyperlipidemia Category: Medical Code(s): E78.5 - Hyperlipidemia, unspecified (8) HOCM (hypertrophic obstructive cardiomyopathy): Status: Acute Category: Medical Code(s): I42.1 - Obstructive hypertrophic cardiomyopathy Plan 1. Dizziness, multifactorial -bradycardia, vertebral disease and possible HCM -improved with holding rate control meds 2. Hypertrophic cardiomyopathy with PHILLY -MRI today for further evaluation 3. CAD with recent mulivessel stenting -clinically stable. -Continue aspirin and Plavix 4. Hypertension with hypertensive heart disease -Continue ARB therapy -Add spironolactone and isosorbide -Discontinue verapamil -Restart low-dose beta-natalie therapy and monitor heart rate 5. Carotid and vertebral artery stenosis -Patient has been referred to neuroradiologist for evaluation and treatment of vertebral stenosis 6. Abnormal EKG with right bundle branch block and left anterior fascicular block -Stable back to 2019 tracings MRI results overall not clinically significant for hypertrophic cardiomyopathy. More likely patient has hypertensive heart disease with increased LV wall thickness with PHILLY causing slight increased LVOT gradient. Will restart low-dose metoprolol. Discontinue verapamil. Continue to monitor patient on telemetry overnight and if no significant bradycardia then possibly home tomorrow with event monitor.
[2023-07-23] MEDS: ISOSORBIDE MONO 30MG TAB.ER.24H 30 MG PO (14:42)
[2023-07-23] MEDS: METOPROLOL TARTRATE 25MG TABLET 25 MG PO ×2 (14:42→20:13)
[2023-07-23] MEDS: SPIRONOLACTONE 25MG TABLET 12.5 MG PO (14:42)
--- NOTE | 2023-07-23 17:39 | P.PN_ITS ---
Subjective *Date: 07/23/23 *Time: 17:39 Interval history: patient is seen at bedside, alert awake, family is also in room, no complains of CP, SOB, N/v Exam Data for Last 24 hours Vital signs and Labs for Last 24 Hours: Temp Pulse Resp BP Pulse Ox O2 Del Method O2 Flow Rate 97.8 F 86 25 H 129/67 94 L Room Air 3 07/23/23 16:00 07/23/23 16:00 07/23/23 16:00 07/23/23 16:00 07/23/23 16:00 07/23/23 17:00 07/22/23 18:00 Laboratory Results - last 24 hr 07/22/23 18:30: Troponin I 0.04 H 07/22/23 23:05: Troponin I 0.48 H 07/23/23 06:14: WBC 6.4 D, RBC 3.69 L, Hgb 10.7 L D, Hct 33.6 L, MCV 91.1, MCH 29.1, MCHC 31.9, RDW 15.0, Plt Count 203 D, MPV 9.1, Neut % (Auto) 53.1, Lymph % (Auto) 40.7, [place] % (Auto) 4.3, Eos % (Auto) 1.3, Baso % (Auto) 0.7, Neut # (Auto) 3.4, Lymph # (Auto) 2.6, [place] # (Auto) 0.3, Eos # (Auto) 0.1, Baso # (Auto) 0.0, Sodium 139, Potassium 4.1, Chloride 107, Carbon Dioxide 24, Anion Gap 12.1, BUN 14, Creatinine 0.80 D, Estimated Creat Clear 46, Estimated GFR 68, Est GFR ( Amer) 82 D, Glucose 95 D, Calcium 9.0 I & O for Last 24 hours: Intake & Output 07/20/23 07/21/23 07/22/23 07/23/23 23:59 23:59 23:59 23:59 Intake Total 307.320 / 427.320 120 / 120 Output Total 450 / 450 200 / 200 Balance -142.680 / -22.680 -80 / -80 Weight 70.851 kg 71.849 kg Constitutional Constitutional: no acute distress *Routine HEENT Exam Head: Present normocephalic Eye: Present EOMI and PERRL ENT: Present mucous membranes moist *Routine Neck Exam Neck: Present supple; Absent lymphadenopathy *Routine Respiratory Exam Respiratory: Present CTA bilaterally *Routine Cardiovascular Exam Cardiovascular: Present RRR *Routine Abdominal Exam Abdominal: Present soft and normoactive bowel sounds; Absent tenderness *Routine Extremities Exam Extremities: Absent cyanosis, clubbing or edema *Routine Skin Exam Skin: Present warm; Absent rash *Routine Neurological Exam Neurological: Present alert and oriented X3 Assessment and Plan *Assessment and plan (1) Dizziness: Status: Acute Category: Medical Code(s): R42 - Dizziness and giddiness (2) Hypertension: Status: Acute Qualifiers: Hypertension type: renovascular hypertension Qualified Code(s): I15.0 - Renovascular hypertension Category: Medical Code(s): I10 - Essential (primary) hypertension (3) CAD (coronary artery disease): Status: Acute Qualifiers: Coronary Disease-Associated Artery/Lesion type: [place] artery [place] vs. transplanted heart: [place] heart Associated angina: with other forms of angina Qualified Code(s): I25.118 - Atherosclerotic heart disease of [place] coronary artery with other forms of angina pectoris Category: Medical Code(s): I25.10 - Atherosclerotic heart disease of [place] coronary artery without angina pectoris (4) HLD (hyperlipidemia): Status: Acute Qualifiers: Hyperlipidemia type: mixed hyperlipidemia Qualified Code(s): E78.2 - Mixed hyperlipidemia Category: Medical Code(s): E78.5 - Hyperlipidemia, unspecified Plan Patient is a 88-year-old female with past medical history of CAD hypertension hyperlipidemia who presents to the hospital due to dizziness. Patient mentions she has been feeling like passing out intermittently. Patient was noticed to have bradycardia, patient was admitted for possible pacemaker placement. At time of my evaluation patient denies shortness of breath nausea vomiting diarrhea constipation dysuria fevers chills. Assessment and plan Dizziness likely due to symptomatic bradycardia - improved Consult cardiology - cardiac MRI ordered, await results, likely no plan for PPM and patient also does not want PPM, plan to monitor inpatient on the medical center tele for another night and potential dc tomorrow with event monitor Monitor on cardiac telemetry Hold AV nathaniel blocking agents History of CAD Hypertension Resume home aspirin, Valsartan atorvastatin Plavix DVT PPx - Heparin likely no plan for PPM and patient also does not want PPM, plan to monitor inpatient on [facility] tele for another night and potential dc tomorrow with event monitor
--- NOTE | 2023-07-23 17:49 | PC.NURSE ---
PT IS RESTING IN BED. ALERT AND ORIENTED X4. EATING AND DRINKING WELL. LUNG SOUNDS CLEAR. ABDOMEN SOFT/NON TENDER WITH ACTIVE BOWEL SOUNDS. AMBULATES TO THE BATHROOM. NSR WITH BBB ON TELEMETRY. WILL CONTINUE TO MONITOR.
[2023-07-23] MEDS: ATORVASTATIN 40MG TABLET 80 MG PO (20:13)
[2023-07-24] VITALS: BP 180/86; PULSE 83; PULSE 90; RESP 16; TEMP 36.8; O2SAT 94
[2023-07-24] MEDS: ACETAMINOPHEN 325MG TAB 650 MG PO (00:27)
[2023-07-24 04:00] VITALS: BP 186/80; PULSE 98; RESP 16; TEMP 37; O2SAT 96; BMI 31.1
--- NOTE | 2023-07-24 05:25 | ECG_ITS ---
APPROVED REPORT Exam: Resting ECG HR:80 bpm ECG Measurements Heart Rate 80 AXES KS 173 P 23 QRSd 150 QRS -42 QT 410 T 11 QTc 446 Conclusion SINUS RHYTHM LEFT AXIS DEVIATION [QRS AXIS < -30] RIGHT BUNDLE BRANCH BLOCK [120+ ms QRS DURATION, UPRIGHT V1, 40+ ms S IN I/aVL/V4/V5/V6] VOLTAGE CRITERIA FOR LVH [MEETS CRITERIA IN ONE OF: R(aVL), S(V1), R(V5), R(V5/V6)+S(V1)] ABNORMAL ECG UNCONFIRMED REPORT Electronically signed by : Yossi Acosta MD 07/25/2023 07:52:58
[2023-07-24] MEDS: cloNIDine 0.1MG TABLET 0.100000000000000006 MG PO (05:40)
[2023-07-24 06:13] LABS: Basophils # 0.1 K/mm3 (0-0.2); Eosinophils # 0.1 K/mm3 (0.0-0.4); Eosinophils % 1.9 % (0.1-12.0); Hematocrit 34.6 % (37.0-47.0); Hemoglobin 11.1 g/dL (12.2-16.2); Lymphocytes # 2.7 K/mm3 (0.7-4.5); Lymphocytes % 41.6 % (10-50); Mean Corpuscular Hemoglobin 29.2 pg (27.0-31.2); Mean Corpuscular Volume 91.2 fl (81-99); Mean Platelet Volume 8.7 fl (7.4-10.4); Monocytes # 0.3 K/mm3 (0.1-1.0); Monocytes % 4.5 % (1.7-9.3); Neutrophils # 3.3 K/mm3 (1.8-7.8); Neutrophils % 50.9 % (37.0-80.0); Platelet Count 202 K/mm3 (142-424); Red Blood Count 3.79 M/mm3 (4.20-5.40); Red Cell Distribution Width 14.8 % (11.5-17.5); White Blood Count 6.4 K/mm3 (4.8-10.8)
--- NOTE | 2023-07-24 06:20 | PC.NURSE ---
Took over patient care at 0500. Patient began to have chest pain 3/10 and headache, BP manual 186/80. EKG obtained. Notified NORMA Maurice, new orders carried out. Pt states she no longer has a headache or chest pain. Lung sounds clear. Ambulates to restroom. BBB on tele. A&Ox4. Call light in reach.
[2023-07-24] MEDS: HEPARIN SODIUM 5,000 UNIT/ML VIAL 5000 UNIT SQ ×2 (06:25→14:52)
[2023-07-24 06:38] VITALS: BP 164/74
[2023-07-24 06:50] LABS: Alanine Aminotransferase 39 U/L (12-78); Albumin Level 3.5 g/dl (3.5-5.0); Albumin/Globulin Ratio 1.4 (1.1-1.8); Alkaline Phosphatase 89 U/L (38-126); Aspartate Amino Transferase 38 U/L (14-36); Bilirubin,Total 0.5 mg/dl (0.2-1.3); Blood Urea Nitrogen 13 mg/dl (7-17); Calcium 9.3 mg/dl (8.4-10.2); Carbon Dioxide 27 mmol/L (22.0-30.0); Chloride 106 mmol/L (98-107); Creatinine Clearance Estimated 46 mL/min (50-200); Estimated Glomerular Filt Rate 59 ml/min (>60); GFR (African American) 72 ML/MIN (>60); Globulin 2.5 g/dL (1.3-3.2); Glucose 138 mg/dl (74-100); Sodium 139 mmol/L (136-145)
[2023-07-24 07:02] LABS: Troponin I 0.16 ng/ml (0.00-0.034)
[2023-07-24 08:00] VITALS: BP 136/69; PULSE 83; RESP 20; TEMP 36.5; O2SAT 95
[2023-07-24] MEDS: SPIRONOLACTONE 25MG TABLET 12.5 MG PO (09:47)
--- NOTE | 2023-07-24 09:48 | P.PN_ITS ---
Subjective Subjective Date: 07/24/23 Time: 09:48 Principal diagnosis: near syncope, HTN Interval history: 88-year-old white female ambulating in room in no acute distress. Episode of hypertension last night with systolic pressure in around 200 mmHg. Patient did receive a single dose of clonidine with improvement to 160 mmHg. EKG at that time no change from baseline with chronic right bundle branch block and left anterior fascicular block noted. No acute ST segment changes. Patient is anxious to go home but is concerned about blood pressure. Exam Data for Last 24 hours Vital signs and Labs for Last 24 Hours: Temp Pulse Resp BP Pulse Ox O2 Del Method O2 Flow Rate 97.7 F 83 20 136/69 95 Room Air 3 07/24/23 08:00 07/24/23 08:00 07/24/23 08:00 07/24/23 08:00 07/24/23 08:00 07/24/23 08:00 07/22/23 18:00 Laboratory Results - last 24 hr 07/24/23 05:48: WBC 6.4, RBC 3.79 L, Hgb 11.1 L, Hct 34.6 L, MCV 91.2, MCH 29.2, MCHC 32.0, RDW 14.8, Plt Count 202, MPV 8.7, Neut % (Auto) 50.9, Lymph % (Auto) 41.6, [place] % (Auto) 4.5, Eos % (Auto) 1.9, Baso % (Auto) 1.0, Neut # (Auto) 3.3, Lymph # (Auto) 2.7, [place] # (Auto) 0.3, Eos # (Auto) 0.1, Baso # (Auto) 0.1, Sodium 139, Potassium 4.0, Chloride 106, Carbon Dioxide 27, Anion Gap 10.0, BUN 13, Creatinine 0.90, Estimated Creat Clear 46, Estimated GFR 59, Est GFR ( Amer) 72, Glucose 138 H D, Calcium 9.3, Total Bilirubin 0.5, AST 38 H, ALT 39, Alkaline Phosphatase 89, Troponin I 0.16 H, Total Protein 6.0 L, Albumin 3.5, Globulin 2.5, Albumin/Globulin Ratio 1.4 I & O for Last 24 hours: Intake & Output 07/21/23 07/22/23 07/23/23 07/24/23 11:59 11:59 11:59 11:59 Intake Total 427.320 / 427.320 240 / 240 Output Total 650 / 650 0 / 0 Balance -222.680 / -222.680 240 / 240 Weight 150 lb 158 lb 6.4 oz 158 lb 6.399 oz Constitutional Constitutional: no acute distress *Routine Respiratory Exam Respiratory: Present CTA bilaterally *Routine Cardiovascular Exam Cardiovascular: Present RRR Progress Note: A&P Assessment and plan (1) Dizziness: Status: Acute (2) Hypertension: Status: Acute (3) CAD (coronary artery disease): Status: Acute (4) HLD (hyperlipidemia): Status: Acute Assessment and Plan Assessment and Plan for All Diagnoses:: 1. Dizziness, multifactorial -bradycardia (related to meds, now resolved after stopping verapamil), vertebral disease and possible HOCM (Not confirmed by MRI) -improved with holding rate control meds 2. Hypertrophic cardiomyopathy with PHILLY -MRI confirms hypertrophy related to HTN 3. CAD with recent mulivessel stenting -clinically stable. -Continue aspirin and Plavix 4. Hypertension with hypertensive heart disease -Continue ARB therapy -Add spironolactone and isosorbide -Discontinue verapamil -Restart low-dose beta-natalie therapy and monitor heart rate -add low dose amlodipine 5. Carotid and vertebral artery stenosis -Patient has been referred to neuroradiologist for evaluation and treatment of vertebral stenosis 6. Abnormal EKG with right bundle branch block and left anterior fascicular block -Stable back to 2019 tracings Clinically stable for discharge home. Home medications: Avapro 150 mg twice daily Metoprolol tartrate 25 mg twice daily Spironolactone 25 mg daily Isosorbide mononitrate 30 mg daily Amlodipine 5 mg in the evening Atorvastatin 80 mg daily Aspirin 81 mg daily Plavix 75 mg daily Follow-up in our office in 1 week
[2023-07-24] MEDS: ASPIRIN EC 81MG TABLET 81 MG PO (09:56)
[2023-07-24] MEDS: METOPROLOL TARTRATE 25MG TABLET 25 MG PO (09:58)
[2023-07-24] MEDS: CLOPIDOGREL 75MG TAB 75 MG PO (09:58)
[2023-07-24] MEDS: ISOSORBIDE MONO 30MG TAB.ER.24H 30 MG PO (09:59)
[2023-07-24] MEDS: PANTOPRAZOLE 40MG TABLET 40 MG PO (10:00)
[2023-07-24 12:00] VITALS: BP 157/78; PULSE 70; PULSE 80; RESP 21; TEMP 36.8; O2SAT 94
--- NOTE | 2023-07-24 15:19 | EXP.DC.SUM ---
General Admission date:: 07/22/23 Discharge date: 07/24/23 HPI HPI HPI: Patient is a 88-year-old female with past medical history of CAD hypertension hyperlipidemia who presents to the hospital due to dizziness. Patient mentions she has been feeling like passing out intermittently. Patient was noticed to have bradycardia, patient was admitted for possible pacemaker placement. At time of my evaluation patient denies shortness of breath nausea vomiting diarrhea constipation dysuria fevers chills. Hospital Course Hospital Course Hospital Course: Patient is a 88-year-old female with past medical history of CAD hypertension hyperlipidemia who presents to the hospital due to dizziness. Patient mentions she has been feeling like passing out intermittently. Patient was noticed to have bradycardia, patient was admitted for medication adjustment and evaluation for possible pacemaker placement. Beta-natalie and calcium channel natalie were held. Bradycardia resolved. Fortunately developed worsening hypertension. Adjustments made to medication. Will need close follow-up in the outpatient setting for further adjustment. Heart rate improved however. No pacemaker stable to discharge home with further management as an outpatient. Problems addressed as follows:needed. Dizziness, multifactorial Symptomatic bradycardia Coronary artery disease w/ recent stenting Hypertensive heart disease - Patient admitted with symptomatic bradycardia causing her dizziness. Her verapamil and metoprolol were discontinued on admission. Cardiology was consulted. Observed on telemetry. Had improvement in her heart rate and improvement in her symptoms. Given clinical improvement, adjustments made for improvement in blood pressure control. Will continue irbesartan 150 mg twice daily, resume metoprolol tartrate 25 mg twice daily, spironolactone 25 mg daily, isosorbide mononitrate 30 mg daily, and amlodipine 5 mg in the evening. Will make further adjustments to blood pressure regimen at follow-up with cardiology. Clinically stable to discharge home. - Continue Lipitor, aspirin, Plavix CAD. Will continue Hypertrophic cardiomyopathy with PHILLY -MRI confirms hypertrophy related to HTN Carotid and vertebral artery stenosis: Patient has been referred to neuroradiologist for evaluation and treatment of vertebral stenosis Given clinical improvement and response to medication adjustments, will discharge home with close outpatient follow-up for further management. Total time spent on discharge 32 minutes in counseling, documentation, chart review, and direct care with patient. Exam Data for Last 24 hours Vital signs and Labs for Last 24 Hours: Temp Pulse Resp BP Pulse Ox O2 Del Method O2 Flow Rate 98.2 F 80 21 157/78 H 94 L Room Air 3 07/24/23 12:00 07/24/23 12:00 07/24/23 12:00 07/24/23 12:00 07/24/23 12:00 07/24/23 12:53 07/22/23 18:00 Laboratory Results - last 24 hr 07/24/23 05:48: WBC 6.4, RBC 3.79 L, Hgb 11.1 L, Hct 34.6 L, MCV 91.2, MCH 29.2, MCHC 32.0, RDW 14.8, Plt Count 202, MPV 8.7, Neut % (Auto) 50.9, Lymph % (Auto) 41.6, [place] % (Auto) 4.5, Eos % (Auto) 1.9, Baso % (Auto) 1.0, Neut # (Auto) 3.3, Lymph # (Auto) 2.7, [place] # (Auto) 0.3, Eos # (Auto) 0.1, Baso # (Auto) 0.1, Sodium 139, Potassium 4.0, Chloride 106, Carbon Dioxide 27, Anion Gap 10.0, BUN 13, Creatinine 0.90, Estimated Creat Clear 46, Estimated GFR 59, Est GFR ( Amer) 72, Glucose 138 H D, Calcium 9.3, Total Bilirubin 0.5, AST 38 H, ALT 39, Alkaline Phosphatase 89, Troponin I 0.16 H, Total Protein 6.0 L, Albumin 3.5, Globulin 2.5, Albumin/Globulin Ratio 1.4 I & O for Last 24 hours: Intake & Output 07/21/23 07/22/23 07/23/23 07/24/23 23:59 23:59 23:59 23:59 Intake Total 307.320 / 427.320 120 / 120 780 / 780 Output Total 450 / 450 200 / 200 0 / 0 Balance -142.680 / -22.680 -80 / -80 780 / 780 Weight 70.851 kg 71.849 kg 71.849 kg Constitutional Constitutional: no acute distress, obese and cooperative *Routine HEENT Exam Head: Present normocephalic Eye: Present EOMI and PERRL ENT: Present mucous membranes moist *Routine Neck Exam Neck: Present supple; Absent lymphadenopathy *Routine Respiratory Exam Respiratory: Present CTA bilaterally *Routine Cardiovascular Exam Cardiovascular: Present RRR *Routine Abdominal Exam Abdominal: Present soft and normoactive bowel sounds; Absent tenderness *Routine Rectal Exam Patient deferred: visual exam *Routine Exam Patient deferred: external exam *Routine Extremities Exam Extremities: Absent cyanosis, clubbing or edema *Routine Skin Exam Skin: Present intact and warm; Absent rash *Routine Neurological Exam Neurological: Present alert, oriented X3 and moving all extremities; Absent altered mental status Results Data Completed and Pending Labs on day of discharge: Labs from last 24 hours 07/24/23 05:48 WBC 6.4 RBC 3.79 L Hgb 11.1 L Hct 34.6 L MCV 91.2 MCH 29.2 MCHC 32.0 RDW 14.8 Plt Count 202 MPV 8.7 Neut % (Auto) 50.9 Lymph % (Auto) 41.6 [place] % (Auto) 4.5 Eos % (Auto) 1.9 Baso % (Auto) 1.0 Neut # (Auto) 3.3 Lymph # (Auto) 2.7 [place] # (Auto) 0.3 Eos # (Auto) 0.1 Baso # (Auto) 0.1 Sodium 139 Potassium 4.0 Chloride 106 Carbon Dioxide 27 Anion Gap 10.0 BUN 13 Creatinine 0.90 Estimated Creat Clear 46 Estimated GFR 59 Est GFR ( Amer) 72 Glucose 138 H D Calcium 9.3 Total Bilirubin 0.5 AST 38 H ALT 39 Alkaline Phosphatase 89 Troponin I 0.16 H Total Protein 6.0 L Albumin 3.5 Globulin 2.5 Albumin/Globulin Ratio 1.4 DS: Diagnosis Discharge Diagnosis (1) Dizziness: Status: Acute Code(s): R42 - Dizziness and giddiness (2) Hypertension: Status: Acute Code(s): I10 - Essential (primary) hypertension Qualifiers: Hypertension type: renovascular hypertension Qualified Code(s): I15.0 - Renovascular hypertension (3) CAD (coronary artery disease): Status: Acute Code(s): I25.10 - Atherosclerotic heart disease of [place] coronary artery without angina pectoris Qualifiers: Associated angina: with other forms of angina Coronary Disease-Associated Artery/Lesion type: [place] artery [place] vs. transplanted heart: [place] heart Qualified Code(s): I25.118 - Atherosclerotic heart disease of [place] coronary artery with other forms of angina pectoris (4) HLD (hyperlipidemia): Status: Acute Code(s): E78.5 - Hyperlipidemia, unspecified Qualifiers: Hyperlipidemia type: mixed hyperlipidemia Qualified Code(s): E78.2 - Mixed hyperlipidemia Meds Home Medications and Allergies Home Medications Medication Instructions Recorded Confirmed Type acetaminophen 500 mg tablet 500 mg PO Q6HP PRN Mild Pain 04/24/23 07/23/23 History (Tylenol Extra Strength) (Scale Score 1-4) aspirin 81 mg tablet,delayed 81 mg PO DAILY #30 tabs 05/23/23 07/23/23 Rx release (Adult Aspirin Regimen) pantoprazole 40 mg tablet,delayed 40 mg PO DAILY #30 tabs 05/25/23 07/23/23 Rx release atorvastatin 80 mg tablet 80 mg PO HS #90 tabs 06/21/23 07/23/23 Rx clopidogrel 75 mg tablet 75 mg PO DAILY #90 tabs 06/21/23 07/23/23 Rx furosemide 20 mg tablet (Lasix) 20 mg PO DAILY #30 tabs 06/21/23 07/23/23 Rx amlodipine 5 mg tablet 5 mg PO DAILY 30 days #30 tabs 07/24/23 Rx irbesartan 150 mg tablet 150 mg PO BID 30 days #60 tabs 07/24/23 Rx isosorbide mononitrate 30 mg 30 mg PO DAILY #30 tabs 07/24/23 Rx tablet,extended release 24 hr metoprolol tartrate 25 mg tablet 25 mg PO BID 30 days #60 tabs 07/24/23 Rx spironolactone 25 mg tablet 12.5 mg (1/2 x 25 mg) PO DAILY 30 07/24/23 Rx days #15 tabs New Prescriptions to Start Prescriptions: daveyodipine Vargas Caputo irbesartan Vargas Caputo isosorbide mononitrate Vargas Caputo metoprolol tartrate Vargas Caputo spironolactone Vargas Caputo Allergies Allergy/AdvReac Type Severity Reaction Status Date / Time metformin AdvReac Mild Diarrhea Verified 07/23/23 13:45 diphenhydramine AdvReac Agitated Verified 07/05/23 13:01 [From Benadryl] Discharge Plan Disposition Patient Disposition: Home, Self-Care Condition: Fair Discharge Order Discharge Orders: Discharge Order (Routine); Ordered 07/24/23 Ordered By: Vargas Caputo Follow up Plan Follow up with: Fracisco Castañeda MD [Staff Physician] - 08/02/23 1:00 pm Yossi Acosta MD [Primary Care Provider] - 08/01/23 10:45 am Prescriptions/Medication Reconciliation: New isosorbide mononitrate 30 mg Tablet Extended Release 24 Hr 30 mg PO DAILY Qty: 30 0RF amlodipine 5 mg Tablet 5 mg PO DAILY 30 Days Qty: 30 0RF spironolactone 25 mg Tablet 12.5 mg PO DAILY 30 Days Qty: 15 0RF irbesartan 150 mg Tablet 150 mg PO BID 30 Days Qty: 60 0RF metoprolol tartrate 25 mg Tablet 25 mg PO BID 30 Days Qty: 60 0RF Continued acetaminophen [Tylenol Extra Strength] 500 mg tablet 500 mg PO Q6HP PRN (Reason: Mild Pain (Scale Score 1-4)) aspirin [Adult Aspirin Regimen] 81 mg tablet,delayed release (DR/EC) 81 mg PO DAILY Qty: 30 5RF clopidogrel 75 mg tablet 75 mg PO DAILY Qty: 90 3RF atorvastatin 80 mg tablet 80 mg PO HS Qty: 90 3RF furosemide [Lasix] 20 mg tablet 20 mg PO DAILY Qty: 30 2RF pantoprazole 40 mg tablet,delayed release (DR/EC) 40 mg PO DAILY Qty: 30 0RF Discontinued valsartan 320 mg tablet 320 mg PO DAILY Qty: 30 3RF metoprolol tartrate 50 mg tablet 50 mg PO BID verapamil 360 mg capsule,ext rel. pellets 24 hr 360 mg PO DAILY Qty: 60 0RF Problem Reconciliation Problems Reviewed?: Yes Patient Discharge Instructions ACTIVITY: Continue current activity DIET: continue same diet Patient Instructions: DI for Bradycardia Providers Primary Care Provider: Yossi Acosta Admit Provider: Delphine Garcia Attending Provider: Delphine Garcia
--- NOTE | 2023-07-25 12:54 | CARE MANAGER ---
Contacted patient related to hospital discharge. She states she is ok, but her blood pressure was elevated systolic over 200. She states she was dizzy when she got up, but it is better now and her blood pressure came down to 146 systolic. She is aware of follow up appointments and will reach out to cardiology if her blood pressure continues to be elevated. Denies any questions or concerns. ROBERT Mulligan
== END 2023-07-24 16:07 | disposition home or self-care (01) | DRG 310 ==
LOC: ER 12:10 → 2ND 14:14
PROVIDERS: Nurse Practitioner Family; Admitting Provider Internal Medicine; Emergency Provider Student in an Organized Health Care Education/Training Program; PCP Internal Medicine Adolescent Medicine; Visit Provider Internal Medicine
DX: R00.1 Bradycardia, unspecified (principal); I42.1 Obstructive hypertrophic cardiomyopathy; I25.10 Atherosclerotic heart disease of native coronary artery without angina pectoris; E78.5 Hyperlipidemia, unspecified; I10 Essential (primary) hypertension; I11.0 Hypertensive heart disease with heart failure; I50.9 Heart failure, unspecified
CPT/HCPCS: 36415; 75561; 80048; 80053; 83735; 84443; 84484; 85025; 93005; 93308; 99291; A9576; J1610; J2405

== ENCOUNTER 2023-10-12 20:31 | Emergency (ER) | payer MEDICARE, SELFPAY ==
[2023-10-12 20:31] VITALS: BP 142/77; PULSE 82; RESP 18; TEMP 36.6; O2SAT 98; BMI 29.2
--- NOTE | 2023-10-12 20:38 | CT_ITS ---
PROCEDURE INFORMATION: Exam: CT Head Without Contrast Exam date and time: 10/12/2023 8:46 PM Age: 88 years old Clinical indication: Injury or trauma; Fall; Blunt trauma (contusions or hematomas); Additional info: Fall, posterior trauma TECHNIQUE: Imaging protocol: Computed tomography of the head without contrast. Radiation optimization: All CT scans at this facility use at least one of these dose optimization techniques: automated exposure control; mA and/or kV adjustment per patient size (includes targeted exams where dose is matched to clinical indication); or iterative reconstruction. COMPARISON: CT ANGIO HEAD 07/04/2023 1:30 PM FINDINGS: Brain: No evidence for intracranial hemorrhage, mass lesions or acute stroke. Intracranial vascular calcifications. Mild small vessel ischemic change in the periventricular white matter. Small low-density right cerebellar hemispheres; likely old infarct image 05/16. Cerebral ventricles: Mild ventricular prominence. Pituitary gland and sella: Partially empty sella. Paranasal sinuses: Visualized sinuses are unremarkable. No fluid levels. Mastoid air cells: Visualized mastoid air cells are well aerated. Orbital cavities: Bilateral cataract extractions. Parotid and submandibular glands: Negative Bones: Unremarkable. No acute fracture. Soft tissues: Left parietal scalp hematoma image . Vasculature: Negative. Other findings: Mild generalized atrophy. IMPRESSION: 1. Left parietal scalp hematoma image 3/. 2. No evidence for intracranial hemorrhage, mass lesions or acute stroke. 3. Intracranial vascular calcifications. 4. Mild generalized atrophy. 5. Mild small vessel ischemic change in the periventricular white matter. Small low-density right cerebellar hemispheres; likely old infarct image /. 6. Mild ventricular prominence.
--- NOTE | 2023-10-12 20:38 | CT_ITS ---
PROCEDURE INFORMATION: Exam: CT Cervical Spine Without Contrast Exam date and time: 10/12/2023 8:58 PM Age: 88 years old Clinical indication: Injury or trauma; Fall; Blunt trauma TECHNIQUE: Imaging protocol: Computed tomography of the cervical spine without contrast. Radiation optimization: All CT scans at this facility use at least one of these dose optimization techniques: automated exposure control; mA and/or kV adjustment per patient size (includes targeted exams where dose is matched to clinical indication); or iterative reconstruction. COMPARISON: CT ANGIO NECK 07/04/2023 1:30 PM FINDINGS: Bones: Spinal alignment is normal. No fracture or bone destruction. Severe osteopenia. Subtle fractures may be missed. 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 Predental space narrowing and hypertrophic pannus around the dens consistent with arthritis. [id number] multilevel facet arthropathy. Brain: Intracranial vascular calcifications. Lungs: Lung apices are normal. Thyroid: Low-density left thyroid lesion; recommend ultrasound. Vasculature: Carotid calcifications. Soft tissues: Unremarkable. IMPRESSION: 1. Spinal alignment is normal. 2. No fracture or bone destruction. 3. Severe osteopenia. Subtle fractures may be missed. 4. 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 5. Predental space narrowing and hypertrophic pannus around the dens consistent with arthritis. 6. [id number] multilevel facet arthropathy. 7. Carotid calcifications. 8. Intracranial vascular calcifications. 9. Low-density left thyroid lesion; recommend ultrasound. COMMENTS: Consistent with the [place]'s Incidental Findings Committee white paper (J Am Claire Radiol 2015): In patients aged 35 years and older with an incidental thyroid nodule equal to or greater than 1.[address], MRI or extrathyroidal US, further evaluation with dedicated thyroid US is recommended for patients with normal life expectancy and without comorbidities. For smaller nodules without suspicious features, no further evaluation or follow up is recommended.
--- NOTE | 2023-10-12 20:43 | HMH.EDGENADL ---
Discharge Plan Disposition Patient Disposition: Home, Self-Care Chief Complaint: Fall Prescriptions Prescriptions: No Action acetaminophen [Tylenol Extra Strength] 500 mg tablet 500 mg PO Q6HP PRN (Reason: Mild Pain (Scale Score 1-4)) aspirin [Adult Aspirin Regimen] 81 mg tablet,delayed release (DR/EC) 81 mg PO DAILY Qty: 30 5RF clopidogrel 75 mg tablet 75 mg PO DAILY Qty: 90 3RF atorvastatin 80 mg tablet 80 mg PO HS Qty: 90 3RF amlodipine 5 mg tablet 7.5 mg PO DAILY 30 Days Qty: 45 5RF furosemide [Lasix] 20 mg tablet 20 mg PO DAILY Qty: 30 2RF irbesartan 300 mg tablet 150 mg PO BID 30 Days Qty: 30 5RF metoprolol tartrate 25 mg tablet 25 mg PO BID 30 Days Qty: 180 1RF isosorbide mononitrate 30 mg Tablet Extended Release 24 Hr 30 mg PO DAILY Qty: 30 0RF spironolactone 25 mg Tablet 12.5 mg PO DAILY 30 Days Qty: 15 0RF pantoprazole 40 mg tablet,delayed release (DR/EC) 40 mg PO DAILY Qty: 30 0RF Referrals Follow up/Referrals: Yossi Acosta MD [Primary Care Provider] - See instructions Activity Restrictions/Add. Instructions Additional Instructions/Restrictions: At this time it was felt you are safe to be discharged home. If new or worsening symptoms please do not hesitate to return the emergency department. There was a small spot on your thyroid incidentally found today, please follow-up with your family doctor for further investigation into this to keep an eye on it. Please follow-up with Dr. Carranza in 10 days to have your staple removed. It is okay to shower. Do not swim or submerge your head underwater. 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 There is nothing to do for it currently however please let Dr. Acosta know next time we see him. Clinical Impressions Clinical Impression: Fall, Laceration of scalp, Thyroid lesion, Scalp hematoma, Abnormal head CT Print Language Print Language: Latvian Discharge ED Provider: Rafat Baez General Adult HPI General Chief complaint: Fall Stated complaint: fall w/head injury Time Seen by Provider: 10/12/23 20:38 Mode of Arrival: EMS Source of Information: Patient Limitations: No Limitations Description of Symptoms (Recalled from ER Triage Doc. by RN): Fall at home in driveway while watering plants. Patient reports tripped, denies loss of consiousness. EMS reports that bleeding was controlled at time of arrival. Patient denies neck pain, back pain, extremity pain. Swelling noted to left side of head with clotting at back of head. Patient reports mild headache that just started. Patient takes ASA but no other blood thinners. History of Present Illness HPI narrative: Patient is a 88-year-old female who presents emergency department for evaluation of traumatic injury sustained in a fall. Patient was watering her green when she suffered a mechanical fall falling on her left side and striking her head, no loss of consciousness. She had a bleeding wound at the scene and ultimately comes here for continued evaluation. Denies neck pain, chest pain, abdominal pain, back pain, extremity pain. She has a mild left-sided headache. No other acute complaints at this time. Last Tdap unknown. Related Data Home Medications ?Medication ?Instructions ?Recorded ?Confirmed acetaminophen 500 mg tablet 500 mg PO Q6HP PRN Mild Pain 04/24/23 08/13/23 (Tylenol Extra Strength) (Scale Score 1-4) Previous Rx's ?Medication ?Instructions ?Recorded aspirin 81 mg tablet,delayed 81 mg PO DAILY #30 tabs 05/23/23 release (Adult Aspirin Regimen) pantoprazole 40 mg tablet,delayed 40 mg PO DAILY #30 tabs 05/25/23 release atorvastatin 80 mg tablet 80 mg PO HS #90 tabs 06/21/23 clopidogrel 75 mg tablet 75 mg PO DAILY #90 tabs 06/21/23 isosorbide mononitrate 30 mg 30 mg PO DAILY #30 tabs 07/24/23 tablet,extended release 24 hr spironolactone 25 mg tablet 12.5 mg (1/2 x 25 mg) PO DAILY 30 07/24/23 days #15 tabs amlodipine 5 mg tablet 7.5 mg (1.5 x 5 mg) PO DAILY 30 08/13/23 days #45 tabs furosemide 20 mg tablet (Lasix) 20 mg PO DAILY #30 tabs 08/14/23 irbesartan 300 mg tablet 150 mg (1/2 x 300 mg) PO BID 30 08/15/23 days #30 tabs metoprolol tartrate 25 mg tablet 25 mg PO BID 30 days #180 tabs 08/16/23 Allergies Allergy/AdvReac Type Severity Reaction Status Date / Time metformin AdvReac Mild Diarrhea Verified 08/13/23 14:47 diphenhydramine AdvReac Agitated Verified 08/13/23 14:47 [From Shahida] [facility] Disclaimer: The information contained in this section may have been updated after the patient was seen, as this information can be updated by other users. Medical History Dizziness First degree atrioventricular block by electrocardiogram Right bundle branch block Vertebral artery stenosis Stenosis of carotid artery Hypertension CAD (coronary artery disease) HLD (hyperlipidemia) ALONSO (acute kidney injury) HOCM (hypertrophic obstructive cardiomyopathy) Mass of thyroid gland Adverse reaction to drug Pancreatitis CHF (congestive heart failure) Abnormal electrocardiogram [ECG] [EKG] Family History Other No significant family history Social History Smoking Status: Never smoker alcohol intake: never substance use type: denies use current occupational status: other Travel in the last 8 weeks: None housing: other ROS Obtained: Yes Systems reviewed as appropriate & no additional complaints except as documented Physical Exam General General appearance: alert and in no apparent distress Head Head exam: normocephalic and other (Left-sided parietal occipital hematoma that is currently hemostatic with overlying matted bloody hair. Underlying abrasions and 1 cm linear laceration that is oozing blood.) Eye Eye exam: Present PERRL and EOMI ENT ENT exam: Present mucous membranes moist Neck Neck exam: Present normal inspection; Absent tenderness Chest Chest inspection: Present normal inspection and symmetric chest wall rise Respiratory Respiratory exam: Present normal lung sounds bilaterally; Absent respiratory distress Cardiovascular Cardiovascular exam: Present regular rate and normal rhythm Abdominal Exam Abdominal exam: Present soft; Absent tenderness Extremities Exam Extremities exam: Present normal inspection; Absent tenderness Back Exam Back exam: Absent tenderness Neurological Exam Neurological exam: Present alert and CN II-XII intact; Absent motor sensory deficit Psychiatric Psychiatric exam: Present normal affect Skin Skin exam: Present warm and dry Medical Decision Making Stephen Inquiry Pt receiving controlled substance: No Vital Signs: 10/12/23 20:31 10/12/23 21:09 Temperature 97.9 F Temperature Source Oral Pulse Rate 84 Pulse Rate [Left Radial] 82 Respiratory Rate 18 Blood Pressure 124/81 Blood Pressure [Right Arm] 142/77 H Blood Pressure Mean 100 Blood Pressure Mean [Right Arm] 98 Blood Pressure Source [Right Arm] Automatic Cuff Blood Pressure Position [Right Arm] Sitting 02 Sat by Pulse Oximetry 98 98 Oxygen Delivery Method Room Air Room Air Orders (Tests/Meds): ED MEDICATIONS Discontinued Medications Generic Name Dose Route Start Last Admin Trade Name Freq PRN Reason Stop Dose Admin Tetanus/Reduced Diphtheria/Acell Pertussis 0.5 ml 10/12/23 20:38 10/12/23 21:10 Tet/Diphth/Pert-Adult 0.5ml Syringe IM 10/12/23 20:39 0.5 ml .ONCE ONE Administration ORDERS Category Date Time Status CT cervical spine wo con Stat Cat Scan 10/12/23 20:[address] head/brain wo con Stat Cat Scan 10/12/23 20:38 Completed Medical Decision Narrative: In summary patient is a 88-year-old female past medical history described above who presents emergency department for evaluation of traumatic injury sustained in a mechanical fall. Patient is hemodynamically stable nontoxic-appearing upon arrival, afebrile. Differential includes skull fracture, intracranial hemorrhage, hematoma, among others. Tdap will be updated. Trauma survey will be conducted with noncontrasted CT scan of the head and cervical spine based on history and physical exam. No anticoagulants to make me concern for occult hemorrhage in the thorax. Noncontrasted CT scan of the head informally visualized by me, it appears there is a left parietal hematoma, no obvious intracranial hemorrhage. Formal CT read shows left parietal scalp hematoma, no intracranial hemorrhage, small low-density right cerebellar hemisphere likely old infarct. CT cervical spine shows no acute fracture with severe osteopenia. Incidental left thyroid lesion for which outpatient ultrasound was recommended. Scalp had a 1 cm laceration after cleaning that was repaired with a single staple, the remainder were abrasions I did not need primary repair. Patient is appropriate for discharge at this time and will follow-up with Dr. Chaney in 10 days for staple removal Procedure: Procedure performed was laceration repair. Location was left parietal occipital scalp, size was 1 cm. Scalp was cleaned using copious water by accounting technician using single staple wound edges were well-approximated. Hemostasis achieved. Patient tolerated the procedure well. There were no immediate complications. Critical Care Critical Care Time Critical Care Time: No
[2023-10-12 21:09] VITALS: BP 124/81; PULSE 84; O2SAT 98
[2023-10-12] MEDS: TET/DIPHTH/PERT-ADULT 0.5ML SYRINGE 0.5 ML IM (21:10)
--- NOTE | 2023-10-12 22:03 | PC.NURSE ---
Pt ambulatory to restroom with assistance from family member at bedside.
[2023-10-12 22:31] VITALS: BP 147/95; PULSE 75; RESP 14; TEMP 36.5; O2SAT 95
== END 2023-10-12 22:37 | disposition home or self-care (01) ==
PROVIDERS: Emergency Provider Emergency Medicine; PCP Internal Medicine Adolescent Medicine
DX: S09.90XA Unspecified injury of head, initial encounter (principal); S01.01XA Laceration without foreign body of scalp, initial encounter; E07.9 Disorder of thyroid, unspecified; R93.0 Abnormal findings on diagnostic imaging of skull and head, not elsewhere classified; W01.10XA Fall on same level from slipping, tripping and stumbling with subsequent striking against unspecified object, initial encounter; Z23 Encounter for immunization
CPT/HCPCS: 12001; 70450; 72125; 90471; 90715; 99285

== ENCOUNTER 2023-10-16 12:29 | Outpatient (CLI) | payer MEDICARE, SELFPAY | END 2023-10-16 23:59 | disposition home or self-care (01) | LOC: LAB.DROPOF 10-17 12:54 | PROVIDERS: PCP Nurse Practitioner; Visit Provider Nurse Practitioner | DX: B35.1 Tinea unguium (principal); E11.8 Type 2 diabetes mellitus with unspecified complications | CPT/HCPCS: 87102; 87206; 87220 ==

== ENCOUNTER 2024-04-05 11:58 | Emergency (ER) | payer MEDICARE, SELFPAY ==
[2024-04-05 12:20] VITALS: BP 128/81; PULSE 76; RESP 19; TEMP 36.6; O2SAT 100; BMI 25.9
--- NOTE | 2024-04-05 12:28 | XR_ITS ---
PROCEDURE INFORMATION: Exam: XR Right Ribs with PA Chest Exam date and time: 04/05/2024 12:49 PM Age: 88 years old Clinical indication: Injury or trauma; Fall; Rib area; Blunt trauma (contusions or hematomas) TECHNIQUE: Imaging protocol: Radiologic exam of the right ribs with PA chest. Views: 3 views COMPARISON: CR XR CHEST PORTABLE 07/04/2023 1:44 PM FINDINGS: Lungs: The lungs are clear. Pleural spaces: There is no pneumothorax or pleural effusion. Heart/Mediastinum: There is no cardiomegaly. Bones/joints: The right-sided ribs are intact with no definite fracture identified. IMPRESSION: 1. No definite fracture is identified in the right-sided ribs. 2. No acute cardiopulmonary process.
--- NOTE | 2024-04-05 12:28 | XR_ITS ---
PROCEDURE INFORMATION: Exam: XR Right Shoulder Exam date and time: 04/05/2024 12:53 PM Age: 88 years old Clinical indication: Injury or trauma; Fall; Blunt trauma (contusions or hematomas); Shoulder; Right TECHNIQUE: Imaging protocol: Radiologic exam of the right shoulder. Views: 2 or more views. COMPARISON: CR XR RIBS RT MIN 3V W CXR1V 04/05/2024 12:49 PM FINDINGS: Bones/joints: There are degenerative changes in the right shoulder. There are degenerative changes in the acromioclavicular joint. There are no fractures or dislocations. Soft tissues: Normal. IMPRESSION: Degenerative changes in the right shoulder.
--- NOTE | 2024-04-05 12:59 | EXP.UTC ---
Discharge Plan Disposition Patient Disposition: Home, Self-Care Condition: Good Prescriptions Prescriptions: New lidocaine 4 % adhesive patch,medicated 1 patch topical DAILY PRN (Reason: pain) Qty: 10 0RF Rx Instructions: apply to right side for 12 hours then remove for 12 hours No Action aspirin [Adult Aspirin Regimen] 81 mg tablet,delayed release (DR/EC) 81 mg PO DAILY Qty: 30 5RF clopidogrel 75 mg tablet 75 mg PO DAILY Qty: 90 3RF atorvastatin 80 mg tablet 80 mg PO HS Qty: 90 3RF Jardiance 25 mg tablet 25 mg PO DAILY Patient Comments: TAKE ONE TABLET BY MOUTH EVERY DAY IN THE MORNING furosemide [Lasix] 20 mg tablet 20 mg PO DAILY Qty: 30 6RF metoprolol tartrate 25 mg tablet 25 mg PO BID 30 Days Qty: 180 1RF irbesartan 300 mg tablet 150 mg PO BID 30 Days Qty: 30 5RF amlodipine 5 mg tablet 7.5 mg PO DAILY 30 Days Qty: 45 5RF isosorbide mononitrate 30 mg Tablet Extended Release 24 Hr 30 mg PO DAILY Qty: 30 0RF pantoprazole 40 mg tablet,delayed release (DR/EC) 40 mg PO DAILY Qty: 30 0RF Referrals Follow up/Referrals: Yossi Acosta MD [Primary Care Provider] - See instructions Activity Restrictions/Add. Instructions Additional Instructions/Restrictions: *Ibuprofen kia 6 hours with meal as needed for pain/inflammation if you can take it *Not additional anti-inflammatory like motrin, aleve, advil with the above amount of ibuprofen. You can still take Tylenol every 4 hours as needed if you need something else for pain *Ice 20 minutes every 2 hours for the first 48 hours after the initial injury followed by moist heat every 20 minutes 3-4 times a day to affected area Topical Lidocaine patch may help with pain and discomfort *Keep this area active, no movement leads to more stiffness, However take it easy and avoid heavy lifting pushing or pulling *Follow up with you family doctor if no improvement for further treatment ? Clinical Impressions Clinical Impression: Contusion of rib Instructions Patient Instructions: Lidocaine Transdermal Patch, DI for Rib Contusion Print Language Print Language: Citizen Of [place] Discharge ED Provider: Irma Fung [facility] [place] General Stated complaint: AO fall upper side pain Mode of Arrival: Ambulatory Source of Information: Patient Limitations: No Limitations Time Seen by Provider: 04/05/24 12:35 Description of Symptoms (Recalled from Triage Doc. by RN): PATIENT C/O PAIN TO RIGHT SIDE/RIBS AFTER FALLING INTO A WINDOW SEAL WHILE GETTING INTO BED 2 DAYS AGO. PATIENT ALSO REPORTS PAIN TO RIGHT SHOULDER X 2 MONTHS HEENT Symptoms (Recalled from RN notes): No Resp Symptoms (Recalled from RN notes): No Skin Symptoms (Recalled from RN notes): No MS Symptoms (Recalled from RN notes): Yes Functional Status (Recalled from RN notes): WNL History of Present Illness Provider Complaint: Pt states that she has been having pain in her right shoulder on and off for a couple of months State that a couple days ago she was getting out of bed and lost her balance and fell between the bed and the window States that she has has been having pain in her right ribs ever since when she moves certain ways and coughs States that noticed she had some bruising so today when it was still bothering her she came in to get an xray Related Data Home Medications ?Medication ?Instructions ?Recorded ?Confirmed empagliflozin 25 mg tablet 25 mg PO DAILY 10/16/23 04/05/24 (Jardiance) Previous Rx's ?Medication ?Instructions ?Recorded aspirin 81 mg tablet,delayed 81 mg PO DAILY #30 tabs 05/23/23 release (Adult Aspirin Regimen) pantoprazole 40 mg tablet,delayed 40 mg PO DAILY #30 tabs 05/25/23 release atorvastatin 80 mg tablet 80 mg PO HS #90 tabs 06/21/23 clopidogrel 75 mg tablet 75 mg PO DAILY #90 tabs 06/21/23 isosorbide mononitrate 30 mg 30 mg PO DAILY #30 tabs 07/24/23 tablet,extended release 24 hr furosemide 20 mg tablet (Lasix) 20 mg PO DAILY #30 tabs 01/21/24 metoprolol tartrate 25 mg tablet 25 mg PO BID 30 days #180 tabs 02/19/24 irbesartan 300 mg tablet 150 mg (1/2 x 300 mg) PO BID 30 03/03/24 days #30 tabs amlodipine 5 mg tablet 7.5 mg (1.5 x 5 mg) PO DAILY 30 03/14/24 days #45 tabs lidocaine 4 % topical patch 1 patch topical DAILY PRN pain #10 04/05/24 ea Allergies Allergy/AdvReac Type Severity Reaction Status Date / Time metformin AdvReac Mild Diarrhea Verified 08/13/23 14:47 diphenhydramine (From AdvReac Agitated Verified 08/13/23 14:47 Benadryl) Worker's Comp Is this a Worker's Comp case?: No [facility] Disclaimer: The information contained in this section may have been updated after the patient was seen, as this information can be updated by other users. Medical History Dizziness First degree atrioventricular block by electrocardiogram Right bundle branch block Vertebral artery stenosis Stenosis of carotid artery Hypertension CAD (coronary artery disease) HLD (hyperlipidemia) ALONSO (acute kidney injury) HOCM (hypertrophic obstructive cardiomyopathy) Mass of thyroid gland Adverse reaction to drug Pancreatitis CHF (congestive heart failure) Abnormal electrocardiogram [ECG] [EKG] Family History Other No significant family history Social History Smoking Status: Never smoker alcohol intake: never substance use type: denies use current occupational status: other Travel in the last 8 weeks: None housing: other Have you lived/traveled outside [place] in past 30 days?: No Contact w/someone who lives/traveled outside [place] past 30 days?: No Exposure to someone with infectious disease in past 14 days?: No Do you have a fever (greater than 100.4 F or 38 C)?: No Have you tested positive for COVID-19: No Exposed to someone with COVID-19 in past 14 days?: No Do you have a sore throat?: No Do you have a cough?: No Do you have any weakness?: No Do you have any diarrhea?: No Are you experiencing any unusual bleeding?: No Do you have any muscle aches/pain?: No Do you have any abdominal pain?: No Are you experiencing loss of taste or smell?: No ROS Obtained: Yes All systems reviewed & no additional complaints except as documented and Yes Systems reviewed as appropriate & no additional complaints except as documented Constitutional Constitutional: Reports system reviewed and no additional complaints, except as documented and Reports as per HPI ENT Ears, Nose, Mouth, and Throat: Reports system reviewed and no additional complaints, except as documented and Reports as per HPI Cardiovascular Cardiovascular: Reports system reviewed and no additional complaints, except as documented and Reports as per HPI Respiratory Respiratory: Reports system reviewed and no additional complaints, except as documented and Reports as per HPI Gastrointestinal Gastrointestingal: Reports system reviewed and no additional complaints, except as documented and as per HPI Genitourinary Female Genitourinary: Reports system reviewed and no additional complaints, except as documented and Reports as per HPI Musculoskeletal Musculoskeletal: Reports system reviewed and no additional complaints, except as documented, Reports as per HPI and Reports other Comments: pain/bruising right ribs and pain in right shoulder on and off 2 months thinks she has a torn rotator cuff Physical Exam General General appearance: alert and in no apparent distress ENT ENT exam: Present mucous membranes moist Chest Chest inspection: Present symmetric chest wall rise and tenderness Expanded Chest Exam Trauma: Present ecchymosis; Absent crepitus, laceration, abrasion or penetrating wound Breast: right: tenderness Female Torso: 1. bruising noted Respiratory Respiratory exam: Present normal lung sounds bilaterally; Absent respiratory distress or wheezes Cardiovascular Cardiovascular exam: Present regular rate, normal rhythm and normal heart sounds Abdominal Exam Abdominal exam: Present soft and normal bowel sounds; Absent distention or tenderness Expanded Upper Extremity Exam Right: Shoulder exam: Present tenderness; Absent swelling, abrasion, ecchymosis, dislocation or erythema Arm exam: Present normal inspection Elbow exam: Present normal inspection Neurological Exam Neurological exam: Present alert, oriented X3 and normal gait Medical Decision Making Medical Records Screening: Per USPSTF and CDC recommendations, given the prevalence of disease in our region, it is our hospital?s policy to screen for HIV and viral Hepatitis for all patients aged 18 and over and those with ongoing risk factors. Stephen Inquiry Pt receiving controlled substance: No Stephen was queried for this patient: No Vital Signs: 04/05/24 12:20 Temperature 97.9 F Temperature Source Oral Pulse Rate [Left Brachial] 76 Respiratory Rate 19 Blood Pressure [Left Arm] 128/81 Blood Pressure Mean [Left Arm] 96 Blood Pressure Source [Left Arm] Automatic Cuff Blood Pressure Position [Left Arm] Sitting 02 Sat by Pulse Oximetry 100 Oxygen Delivery Method Room Air Orders (Tests/Meds): ORDERS Category Date Time Status XR ribs RT min 3V w CXR1V Stat Exams 04/05/24 12:28 Ordered XR shoulder RT min 2V Stat Exams 04/05/24 12:28 Ordered Radiology Data #1: Image(s): Chest (with right side ribs) Image Reviewed: Yes I have reviewed radiologist's interpretation IMPRESSION: 1. No definite fracture is identified in the right-sided ribs. 2. No acute cardiopulmonary process. #2: Image(s): Shoulder Image Reviewed: Yes I have reviewed radiologist's interpretation IMPRESSION: Degenerative changes in the right shoulder.
[2024-04-05 14:01] VITALS: BP 128/81; PULSE 76; RESP 19; TEMP 36.6; O2SAT 100
== END 2024-04-05 14:11 | disposition home or self-care (01) ==
PROVIDERS: Emergency Provider Nurse Practitioner; PCP Internal Medicine Adolescent Medicine
DX: S20.20XA Contusion of thorax, unspecified, initial encounter (principal); W19.XXXA Unspecified fall, initial encounter
CPT/HCPCS: 71101; 73030; 99213; G0381

== ENCOUNTER 2024-07-07 15:47 | Outpatient (CLI) | payer MEDICARE, SELFPAY ==
--- NOTE | 2024-07-07 15:51 | XR_ITS ---
PROCEDURE INFORMATION: Exam: XR Right Shoulder Exam date and time: 07/07/2024 3:56 PM Age: 88 years old Clinical indication: Pain; Shoulder; Right; Additional info: Right shoulder pain TECHNIQUE: Imaging protocol: Radiologic exam of the right shoulder. Views: 2 or more views. Total images: 3 COMPARISON: CR XR SHOULDER RT MIN 2V 04/05/2024 12:53 PM FINDINGS: Bones/joints: No acute fracture, joint dislocation, or AC joint separation. Moderate degenerative change of the glenohumeral joint. Mild degenerative change AC joint. Increased subacromial distance concerning for joint effusion or bursitis. No concerning bone lesions. Soft tissues: Unremarkable soft tissues. IMPRESSION: 1. No acute osseous abnormality. 2. Increased subacromial distance concerning for joint effusion or bursitis. 3. Degenerative arthropathy.
== END 2024-07-07 23:59 | disposition home or self-care (01) ==
LOC: RAD 15:48
PROVIDERS: PCP Internal Medicine Adolescent Medicine; Visit Provider Internal Medicine Adolescent Medicine
DX: M25.511 Pain in right shoulder (principal)
CPT/HCPCS: 73030

== ENCOUNTER 2025-02-10 17:34 | Emergency (ER) | payer MEDICARE, SELFPAY ==
[2025-02-10] VITALS (11 sets, daily range): BP systolic 144–193; BP diastolic 82–134; PULSE 71–98; RESP 13–20; TEMP 36.7; O2SAT 94–98; BMI 29.2
--- NOTE | 2025-02-10 18:26 | ECG_ITS ---
APPROVED REPORT Exam: Resting ECG HR:101 bpm ECG Measurements Heart Rate 101 AXES MD 179 P 76 QRSd 159 QRS -52 QT 395 T 11 QTc 453 Conclusion SINUS TACHYCARDIA RIGHT BUNDLE BRANCH BLOCK [120+ ms QRS DURATION, UPRIGHT V1, 40+ ms S IN I/aVL/V4/V5/V6] LEFT ANTERIOR FASCICULAR BLOCK [QRS AXIS <= -45, QR IN I, RS IN II] VOLTAGE CRITERIA FOR LVH [MEETS CRITERIA IN ONE OF: R(aVL), S(V1), R(V5), R(V5/V6)+S(V1)] POSSIBLE SEPTAL MYOCARDIAL INFARCTION , OF INDETERMINATE AGE [30 ms Q WAVE IN V1/V2] No STEMI Electronically signed by : FRANKY MCFADDEN, 02/13/2025 06:50:20
--- NOTE | 2025-02-10 18:26 | CT_ITS ---
PROCEDURE INFORMATION: Exam: CT Head Without Contrast Exam date and time: 02/10/2025 7:01 PM Age: 89 years old Clinical indication: Stroke-like symptoms; Other: Possible stroke TECHNIQUE: Imaging protocol: Computed tomography of the head without contrast. Radiation optimization: All CT scans at this facility use at least one of these dose optimization techniques: automated exposure control; mA and/or kV adjustment per patient size (includes targeted exams where dose is matched to clinical indication); or iterative reconstruction. Other technique: STROKE PROTOCOL was implemented. COMPARISON: CT HEAD/BRAIN WO CON 10/12/2023 8:46 PM FINDINGS: Brain: There is moderate diffuse cerebral volume loss present. Multiple subcortical and deep hypoattenuating white matter foci are present, likely related to small vessel senescent changes and can also be seen with prior infectious / inflammatory insult, or prior traumatic events. No hyperattenuating foci are identified to suggest acute intracranial hemorrhage. Cerebral ventricles: No ventriculomegaly. Paranasal sinuses: Visualized sinuses are unremarkable. No fluid levels. Mastoid air cells: Visualized mastoid air cells are well aerated. Bones: Unremarkable. No acute fracture. Soft tissues: Unremarkable. IMPRESSION: 1. Multiple subcortical and deep hypoattenuating white matter foci are present, likely related to small vessel senescent changes and can also be seen with prior infectious / inflammatory insult, or prior traumatic events. 2. No hyperattenuating foci are identified to suggest acute intracranial hemorrhage. ASSESSMENT: ASPECTS ([place] Stroke Program Early CT Score) is 10.
--- NOTE | 2025-02-10 18:26 | CT_ITS ---
PROCEDURE INFORMATION: Exam: CTA Neck With Contrast Exam date and time: 02/10/2025 7:03 PM Age: 89 years old Clinical indication: Stroke-like symptoms; Other: Possible stroke TECHNIQUE: Imaging protocol: Computed tomographic angiography of the neck with contrast. Exam focused on the cervical segments of the vasculature. 3D rendering (Not supervised by radiologist): MIP and/or 3D reconstructed images were created by the technologist. Radiation optimization: All CT scans at this facility use at least one of these dose optimization techniques: automated exposure control; mA and/or kV adjustment per patient size (includes targeted exams where dose is matched to clinical indication); or iterative reconstruction. Contrast material: ISOVUE; Contrast volume: 80 ml; Contrast route: INTRAVENOUS (IV); COMPARISON: CT ANGIO NECK 07/04/2023 1:30 PM FINDINGS: Right common carotid artery: No stenosis. No dissection or occlusion. Right internal carotid artery: Moderate mixed calcific and noncalcified atherosclerotic disease of the right carotid bulb resulting in severe stenosis. Right external carotid artery: No occlusion or stenosis of the origin. Left common carotid artery: No stenosis. No dissection or occlusion. Left internal carotid artery: Moderate mixed calcific and noncalcified atherosclerotic disease of the left carotid bulb resulting in severe stenosis of the origin of the left ICA. Left external carotid artery: No occlusion or stenosis of the origin. 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 Moderate calcific atherosclerotic disease of the origin of the right vertebral artery resulting in moderate stenosis. Left vertebral artery: No stenosis. No dissection or occlusion. Soft tissues: Normal. No significant soft tissue swelling. Bones/joints: Moderate loss of intervertebral disc space with degenerative changes involving C3 through T1 with fusion of C5-C6. IMPRESSION: 1. 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 2. 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 3. Moderate calcific atherosclerotic disease of the origin of the right vertebral artery resulting in moderate stenosis. 4. Moderate mixed calcific and noncalcified atherosclerotic disease of the right carotid bulb resulting in severe stenosis. 5. Moderate mixed calcific and noncalcified atherosclerotic disease of the left carotid bulb resulting in severe stenosis of the origin of the left ICA. REFERENCES: NASCET CRITERIA. The degree of stenosis in the cervical segment of the internal carotid artery is based on NASCET criteria. Normal is no stenosis. Mild is less than 50% stenosis. Moderate is 50-69% stenosis. Severe is 70% to 99% stenosis. Total occlusion is no detectable patent lumen.
--- NOTE | 2025-02-10 18:26 | CT_ITS ---
PROCEDURE INFORMATION: Exam: CTA Head With Contrast, Arteriography Exam date and time: 02/10/2025 7:03 PM Age: 89 years old Clinical indication: Stroke-like symptoms; Other: Possible stroke TECHNIQUE: Imaging protocol: Computed tomographic angiography of the head with contrast. Exam focused on the arteries. 3D rendering (Not supervised by radiologist): MIP and/or 3D reconstructed images were created by the technologist. Radiation optimization: All CT scans at this facility use at least one of these dose optimization techniques: automated exposure control; mA and/or kV adjustment per patient size (includes targeted exams where dose is matched to clinical indication); or iterative reconstruction. Contrast material: ISOVUE; Contrast volume: 80 ml; Contrast route: INTRAVENOUS (IV); COMPARISON: CT ANGIO HEAD 07/04/2023 1:30 PM FINDINGS: ANTERIOR CIRCULATION: Right internal carotid artery: Severe calcific atherosclerotic disease of the right intracranial ICA resulting in moderate stenosis of the cavernous segment, and severe stenosis of the ophthalmic segment. Right middle cerebral artery: No occlusion or significant stenosis. No aneurysm. Right anterior cerebral artery: No occlusion or significant stenosis. No aneurysm. Left internal carotid artery: Severe calcific atherosclerotic disease of the left intracranial ICA resulting in moderate stenosis of the cavernous segment, and severe stenosis of the ophthalmic segment. Left middle cerebral artery: No occlusion or significant stenosis. No aneurysm. Left anterior cerebral artery: No occlusion or significant stenosis. No aneurysm. POSTERIOR CIRCULATION: Right vertebral artery: No occlusion or significant stenosis. No aneurysm. Left vertebral artery: No occlusion or significant stenosis. No aneurysm. Basilar artery: No occlusion or significant stenosis. No aneurysm. Right posterior cerebral artery: No occlusion or significant stenosis. No aneurysm. Left posterior cerebral artery: No occlusion or significant stenosis. No aneurysm. Brain: No definite mass, mass effect, or midline shift. Cerebral ventricles: No ventriculomegaly. Bones/joints: Unremarkable. No acute fracture. Soft tissues: Unremarkable. IMPRESSION: 1. Severe calcific atherosclerotic disease of the right intracranial ICA resulting in moderate stenosis of the cavernous segment, and severe stenosis of the ophthalmic segment. 2. Severe calcific atherosclerotic disease of the left intracranial ICA resulting in moderate stenosis of the cavernous segment, and severe stenosis of the ophthalmic segment.
--- NOTE | 2025-02-10 18:30 | ED_ITS ---
<Statement entered by Nancy Ferro DO - 02/11/25 00:21> I was consulted by the CRIS, and we discussed the complexity of problems being addressed. I approve the treatment and management plan for this patient's care in the emergency department, thus performing a substantial portion of the medical decision making. Nancy Ferro DO Discharge Plan Disposition Chief Complaint: Dizziness Prescriptions Prescriptions: No Action aspirin [Adult Aspirin Regimen] 81 mg tablet,delayed release (DR/EC) 81 mg PO DAILY Qty: 30 5RF nitrofurantoin monohyd/m-cryst [Macrobid] 100 mg capsule 100 mg PO BID 7 Days Qty: 14 0RF Rx Instructions: must administer with a meal/food estradiol [Estrace] 0.01 % (0.1 mg/gram) cream 0.5 appful vaginal WEEKLY Qty: 42.5 3RF Rx Instructions: Use blueberry size amount of vaginal cream twice weekly. Discard applicator after single use. ciprofloxacin HCl 500 mg tablet 500 mg PO BID 5 Days Qty: 10 0RF nitrofurantoin monohyd/m-cryst [Macrobid] 100 mg capsule 100 mg PO BID 7 Days Qty: 14 0RF Rx Instructions: must administer with a meal/food clopidogrel 75 mg tablet 75 mg PO DAILY Qty: 90 3RF atorvastatin 80 mg tablet 80 mg PO HS Qty: 90 3RF Jardiance 25 mg tablet 25 mg PO DAILY Patient Comments: TAKE ONE TABLET BY MOUTH EVERY DAY IN THE MORNING irbesartan 150 mg tablet 150 mg PO irbesartan 300 mg tablet 150 mg PO BID 30 Days Qty: 30 5RF amlodipine 5 mg tablet 7.5 mg PO DAILY 30 Days Qty: 45 5RF metoprolol tartrate 25 mg tablet 25 mg PO BID 30 Days Qty: 180 0RF furosemide [Lasix] 20 mg tablet 20 mg PO DAILY Qty: 30 11RF isosorbide mononitrate 30 mg Tablet Extended Release 24 Hr 30 mg PO DAILY Qty: 30 0RF pantoprazole 40 mg tablet,delayed release (DR/EC) 40 mg PO DAILY Qty: 30 0RF lidocaine 4 % adhesive patch,medicated 1 patch topical DAILY PRN (Reason: pain) Qty: 10 0RF Rx Instructions: apply to right side for 12 hours then remove for 12 hours Referrals Follow up/Referrals: Yossi Acosta MD [Primary Care Provider, Internal Medicine] - See instructions Stand Alone Forms Stand Alone Forms: Transfer Record - ED Print Language Print Language: Japanese Discharge ED Provider: Nancy Ferro General Adult HPI <Maryann Wei APRN - Last Filed: 02/10/25 21:41> General Chief complaint: Dizziness Stated complaint: high blood pressure Time Seen by Provider: 02/10/25 18:14 History of Present Illness HPI narrative: patient is an 89-year-old female PMHx hypertension, CHF, history of abnormal stress test, CAD, HLD, ALONSO, history of right bundle branch block who presents to the ED with her spouse and daughter for complaints of dizziness and hypertension. Patient & spouse recall that last night patient was walking attempting to get to the restroom when she was so dizzy she started to fall into the wall, had to assist her. Normally she walks on her own without dizziness. She states that over the course of the day she has become increasingly dizzy, worse upon movement. Related Data Home Medications ?Medication ?Instructions ?Recorded ?Confirmed empagliflozin 25 mg tablet 25 mg PO DAILY 10/16/23 (Jardiance) irbesartan 150 mg tablet 150 mg PO 01/05/25 01/23/25 Previous Rx's ?Medication ?Instructions ?Recorded aspirin 81 mg tablet,delayed 81 mg PO DAILY #30 tabs 0 05/23/23 release (Adult Aspirin Regimen) pantoprazole 40 mg tablet,delayed 40 mg PO DAILY #30 t abs 05/25/23 release atorvastatin 80 mg tablet 80 mg PO HS #90 tabs 4 clopidogrel 75 mg tablet 75 mg PO DAILY #90 tabs 06/03 10/26 isosorbide mononitrate 30 mg 30 mg PO DAILY #30 tabs 0 07/24/23 tablet,extended release 24 hr irbesartan 300 mg tablet 150 mg (1/2 x 300 mg) PO BID 30 03/03/24 days #30 tabs amlodipine 5 mg tablet 7.5 mg (1.5 x 5 mg) PO DAILY 30 03/14/24 days #45 tabs lidocaine 4 % topical patch 1 patch topical DAILY PRN pain #10 04/05/24 ea metoprolol tartrate 25 mg tablet 25 mg PO BID 30 days #180 tabs 08/12/24 furosemide 20 mg tablet (Lasix) 20 mg PO DAILY #30 tab s 09/15/24 estradiol 0.01% (0.1 mg/gram) 0.5 appful vaginal WEEKL Y #42.5 12/31/24 vaginal cream (Estrace) grams nitrofurantoin 100 mg PO BID 7 days #14 cap s 12/31/24 monohydrate/macrocrystals 100 mg capsule (Macrobid) ciprofloxacin HCl 500 mg tablet 500 mg PO BID 5 days # 10 tabs 01/05/25 nitrofurantoin 100 mg PO BID 7 days #14 cap s 01/26/25 monohydrate/macrocrystals 100 mg capsule (Macrobid) Allergies Allergy/AdvReac Type Severity Reaction Status Date / Time metformin AdvReac Mild Diarrhea Verified 01/23/25 10:42 diphenhydramine (From AdvReac Agitated Verified 01/23/25 10:42 Benadryl) [facility] <Mrayann Wei APRN - Last Filed: 02/10/25 21:41> [facility] Disclaimer: The information contained in this section may have been updated after the patient was seen, as this information can be updated by other users. Medical History (Updated 01/23/25 @ 12:20 by Dee Dee Uribe DO) Pelvic pressure in female Cervical polyp Dizziness First degree atrioventricular block by electrocardiogram Right bundle branch block Vertebral artery stenosis Stenosis of carotid artery Hypertension CAD (coronary artery disease) HLD (hyperlipidemia) ALONSO (acute kidney injury) HOCM (hypertrophic obstructive cardiomyopathy) Mass of thyroid gland Adverse reaction to drug Pancreatitis CHF (congestive heart failure) Abnormal electrocardiogram [ECG] [EKG] Family History Other No significant family history Social History Smoking Status: Never smoker alcohol intake: never substance use type: denies use current occupational status: other Travel in the last 8 weeks?: None housing: other Have you lived/traveled outside [place] in past 30 days?: No Contact w/someone who lives/traveled outside US past 30 days?: No Exposure to someone with infectious disease in past 14 days?: No Do you have a fever (greater than 100.4 F or 38 C)?: No Have you tested positive for COVID-19?: No Exposed to someone with COVID-19 in past 14 days?: No Do you have a sore throat?: No Do you have a cough?: No Do you have any weakness?: No Do you have any diarrhea?: No Are you experiencing any unusual bleeding?: No Do you have any muscle aches/pain?: No Do you have any abdominal pain?: No Are you experiencing loss of taste or smell?: No Other Medical History Have you received the Flu Vaccine for this season: No Have you received the Pneumonia Vaccine: Yes <Maryann Wei APRN - Last Filed: 02/10/25 21:41> ROS Obtained: Yes Systems reviewed as appropriate & no additional complaints except as documented Physical Exam <Maryann Wei APRN - Last Filed: 02/10/25 21:41> General General appearance: alert Head Head exam: atraumatic Eye Eye exam: Present PERRL and other (horizontal nystagmus, left eye rotary nystagmus ) Neck Neck exam: Present full ROM; Absent tenderness Respiratory Respiratory exam: Present normal lung sounds bilaterally Cardiovascular Cardiovascular exam: Present regular rate Abdominal Exam Abdominal exam: Present soft; Absent tenderness Extremities Exam Extremities exam: Present full ROM Neurological Exam Neurological exam: Present alert and oriented X3 Skin Skin exam: Present warm and dry Medical Decision Making <Maryann Wei APRN - Last Filed: 02/10/25 21:41> Medical Records Screening: Per USPSTF and CDC recommendations, given the prevalence of disease in our region, it is our hospital?s policy to screen for HIV and viral Hepatitis for all patients aged 18 and over and those with ongoing risk factors. Stephen Inquiry Pt receiving controlled substance: No Vital Signs: 02/10/25 17:35 02/10/25 18:16 02/10/25 18:30 Temperature 98.1 F Temperature Source Oral Pulse Rate 91 H 91 H Pulse Rate [Left Radial] 90 Respiratory Rate 20 13 Blood Pressure 189/104 H 155/96 H Blood Pressure [Right Arm] 189/104 H Blood Pressure Mean Blood Pressure Mean [Right Arm] 132 02 Sat by Pulse Oximetry 96 97 97 Oxygen Delivery Method Room Air Room Air Room Air 02/10/25 19:18 02/10/25 19:30 02/10/25 20:00 Temperature Temperature Source Pulse Rate 90 88 88 Pulse Rate [Left Radial] Respiratory Rate 15 16 16 Blood Pressure 144/87 H 178/82 H 145/95 H Blood Pressure [Right Arm] Blood Pressure Mean 122 Blood Pressure Mean [Right Arm] 02 Sat by Pulse Oximetry 97 97 96 Oxygen Delivery Method 02/10/25 20:30 02/10/25 21:01 02/10/25 21:30 Temperature Temperature Source Pulse Rate 88 95 H 98 H Pulse Rate [Left Radial] Respiratory Rate Blood Pressure 164/95 H 193/114 H 154/134 H Blood Pressure [Right Arm] Blood Pressure Mean 118 140 Blood Pressure Mean [Right Arm] 02 Sat by Pulse Oximetry 97 97 98 Oxygen Delivery Method 02/10/25 23:24 02/10/25 23:30 02/11/25 00:00 Temperature Temperature Source Pulse Rate 79 71 76 Pulse Rate [Left Radial] Respiratory Rate 20 17 17 Blood Pressure 154/94 H 149/92 H 135/86 Blood Pressure [Right Arm] Blood Pressure Mean Blood Pressure Mean [Right Arm] 02 Sat by Pulse Oximetry 94 L 95 95 Oxygen Delivery Method Lab Data Lab Results 02/10/25 18:15: WBC 7.5, RBC 5.06, Hgb 12.8, Hct 41.2, MCV 81.4, MCH 25.3 L, M CHC 31.1 L, RDW 15.8, Plt Count 208, MPV 10.2, Neut % (Auto) 54.1, Lymph % (Auto) 36.5, Dade % (Auto) 6.0, Eos % (Auto) 1.9, Baso % (Auto) 0.7, Neut # (Auto) 4.0, Lymph # (Auto) 2.7, Dade # (Auto) 0.5, Eos # (Auto) 0.1, Baso # (Auto) 0.1, PT 12.4, INR 1.13 H, APTT 24.4, Sodium 143, Potassium 3.3 L, Chloride 103, Carbon Dioxide 26, Anion Gap 17.3 H, BUN 14, Creatinine 0.80, Estimated Creat Clear 43, Estimated GFR 68, Est GFR ( Amer) 82, Glucose 197 H, Calcium 9.8, Total Bilirubin 0.8, AST 29, ALT 17, Alkaline Phosphatase 128 H, Troponin I < 0.01, NT-Pro-B Natriuret Pep 1680 H, Total Protein 7.8 D, Albumin 4.8, Globulin 3.0, Albumin/Globulin Ratio 1.6, Triglycerides 297 H, Cholesterol 149, LDL Cholesterol Direct 71.76 L, VLDL Cholesterol 59 H, HDL Cholesterol 40, Cholesterol/HDL Ratio 3.7 H, Plasma/Serum Alcohol < 10 02/10/25 18:58: Urine Color Yellow, Urine Appearance Clear, Urine pH 7.5, Ur Specific Grant 1.015, Urine Protein Negative, Urine Glucose (UA) 3+, Urine Ketones Negative, Urine Blood 1+ A, Urine Nitrate Negative, Urine Bilirubin Negative, Urine Urobilinogen 0.2, Ur Leukocyte Esterase 1+ A, Urine RBC 10-20, Urine WBC 50-100, Ur Squamous Epith Cells 10-20, Urine Bacteria 4+, Urine Opiates Screen Negative, Urine Methadone Screen Negative, Ur Barbituates Screen Negative, Ur Phencyclidine Scrn Negative, Ur Amphetamines Screen Negative, U Benzodiazepines Scrn Negative, Urine Cocaine Screen Negative, U Marijuana (THC) Screen Negative 02/10/25 21:17: Troponin I < 0.01 02/10/25 18:15 02/10/25 18:15 Orders (Tests/Meds): ED MEDICATIONS Generic Name Dose Route Start Last Admin Trade Name Danica PRN Reason Stop Dose Admin Sodium Chloride 10 ml 02/10/25 18:26 Sodium Chloride 0.9% 10ml Flush Syringe IV 03/12/25 18:25 NEEDED PRN Maintain IV Site Sodium Chloride 10 ml 02/10/25 19:03 02/10/25 19:03 Sodium Chloride 0.9% 10ml Syr (Rad Only) IV 03/12/25 19:02 10 ml NEEDED PRN Administration Maintain IV Site Discontinued Medications Generic Name Dose Route Start Last Admin Trade Name Danica PRN Reason Stop Dose Admin Amlodipine Besylate 5 mg 02/10/25 21:38 02/10/25 21:59 Amlodipine 5mg Tablet PO 02/10/25 21:39 5 mg ONCE ONE Administration Aspirin 81 mg 02/10/25 20:16 02/10/25 20:54 Aspirin 81mg Chewable Tablet PO 02/10/25 20:17 81 mg ONCE ONE Administration Aspirin 81 mg 02/10/25 21:39 02/10/25 21:53 Aspirin 81mg Chewable Tablet PO 02/10/25 21:40 Not Given ONCE ONE Clopidogrel Bisulfate 300 mg 02/10/25 20:16 02/10/25 20:54 Clopidogrel 300mg Tablet PO 02/10/25 20:17 300 mg ONCE ONE Administration Iopamidol 80 ml 02/10/25 19:03 02/10/25 19:04 Iopamidol-370 (76%);100ml Bottle IV 02/10/25 19:04 80 ml ONCE ONE Administration Isosorbide Mononitrate 30 mg 02/10/25 21:40 02/10/25 22:02 Isosorbide Dade 30mg Tab.Er.24h PO 02/10/25 21:41 30 mg ONCE ONE Administration Metoprolol Tartrate 25 mg 02/10/25 21:38 02/10/25 21:59 Metoprolol Tartrate 50mg Tablet PO 02/10/25 21:39 25 mg ONCE ONE Administration Sodium Chloride 50 ml 02/10/25 19:03 02/10/25 19:04 0.9 % Sodium Chloride 50 Ml Vial IV 02/10/25 19:04 50 ml ONCE ONE Administration ORDERS Category Date Time Status CT angio head Stat Cat Scan 02/10/25 18:[address] angio neck Stat Cat Scan 02/10/25 18:[address] head/brain wo con Stat Cat Scan 02/10/25 18:26 Completed Activated Partial Thrombo Time Stat Lab 02/10/25 18:15 Completed BNP [NT Pro Brain Natriuretic Pep.] Stat Lab 02/10/25 18:15 Completed Complete Blood Count Auto Diff Stat Lab 02/10/25 18:15 Completed Comprehensive Metabolic Panel Stat Lab 02/10/25 18:15 Completed Drug Screen,Urine Stat Lab 02/10/25 18:58 Completed Ethyl Alcohol Stat Lab 02/10/25 18:15 Completed Lipid Panel Stat Lab 02/10/25 18:15 Completed Prothrombin Time INR Stat Lab 02/10/25 18:15 Completed Troponin I Q3H Lab 02/10/25 21:17 Completed Troponin I Q3H Lab 02/11/25 00:30 Ordered Troponin I Stat Lab 02/10/25 18:15 Completed Urinalysis and Microscopic Stat Lab 02/10/25 18:58 Completed Urine Culture Stat Micro 02/10/25 18:58 Received Medical Decision Narrative: In summary, patient is an 89-year-old female PMHx hypertension, CHF, history of abnormal stress test, CAD, HLD, ALONSO, history of right bundle branch block who presents to the ED with her spouse and daughter for complaints of dizziness and hypertension. Patient & spouse recall that last night patient was walking attempting to get to the restroom when she was so dizzy she started to fall into the wall, had to assist her. Normally she walks on her own without dizziness. She states that over the course of the day she has become increasingly dizzy, worse upon movement. She has taken all of her medications, has not missed any doses. She denies headache, visual changes, chest pain, shortness of breath, abdominal pain, nausea, vomiting. Differential diagnosis included ACS, ICH, mass, aneurysm, other central causes of vertigo, infectious process, among others. CBC unremarkable for any leukocytosis, stable H&H. Coags PT 12.4, INR 1.13, APTT 24.4. CMP remarkable for potassium of 3.3, anion gap 17.3, glucose 197. First troponin < 0.01. BNP 1680. Triglycerides 297, LDL 71.7. CT Head without unremarkable for any acute process. CT angio head remarkable for severe atherosclerotic disease of the right intracranial ICA moderate stenosis of the cavernous segment and severe stenosis of the ophthalmic segment. Severe atherosclerotic disease of the left intracranial ICA. CT angio neck remarkable for severe atherosclerotic disease of the right vertebral artery resulting in severe stenosis. 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 Care transferred to attending, Dr. Ferro. <Nancy Ferro, DO - Last Filed: 02/11/25 00:34> Vital Signs: 02/10/25 17:35 02/10/25 18:16 02/10/25 18:30 Temperature 98.1 F Temperature Source Oral Pulse Rate 91 H 91 H Pulse Rate [Left Radial] 90 Respiratory Rate 20 13 Blood Pressure 189/104 H 155/96 H Blood Pressure [Right Arm] 189/104 H Blood Pressure Mean Blood Pressure Mean [Right Arm] 132 02 Sat by Pulse Oximetry 96 97 97 Oxygen Delivery Method Room Air Room Air Room Air 02/10/25 19:18 02/10/25 19:30 02/10/25 20:00 Temperature Temperature Source Pulse Rate 90 88 88 Pulse Rate [Left Radial] Respiratory Rate 15 16 16 Blood Pressure 144/87 H 178/82 H 145/95 H Blood Pressure [Right Arm] Blood Pressure Mean 122 Blood Pressure Mean [Right Arm] 02 Sat by Pulse Oximetry 97 97 96 Oxygen Delivery Method 02/10/25 20:30 02/10/25 21:01 02/10/25 21:30 Temperature Temperature Source Pulse Rate 88 95 H 98 H Pulse Rate [Left Radial] Respiratory Rate Blood Pressure 164/95 H 193/114 H 154/134 H Blood Pressure [Right Arm] Blood Pressure Mean 118 140 Blood Pressure Mean [Right Arm] 02 Sat by Pulse Oximetry 97 97 98 Oxygen Delivery Method 02/10/25 23:24 02/10/25 23:30 02/11/25 00:00 Temperature Temperature Source Pulse Rate 79 71 76 Pulse Rate [Left Radial] Respiratory Rate 20 17 17 Blood Pressure 154/94 H 149/92 H 135/86 Blood Pressure [Right Arm] Blood Pressure Mean Blood Pressure Mean [Right Arm] 02 Sat by Pulse Oximetry 94 L 95 95 Oxygen Delivery Method Lab Data Lab Results 02/10/25 18:15: WBC 7.5, RBC 5.06, Hgb 12.8, Hct 41.2, MCV 81.4, MCH 25.3 L, M CHC 31.1 L, RDW 15.8, Plt Count 208, MPV 10.2, Neut % (Auto) 54.1, Lymph % (Auto) 36.5, Dade % (Auto) 6.0, Eos % (Auto) 1.9, Baso % (Auto) 0.7, Neut # (Auto) 4.0, Lymph # (Auto) 2.7, Dade # (Auto) 0.5, Eos # (Auto) 0.1, Baso # (Auto) 0.1, PT 12.4, INR 1.13 H, APTT 24.4, Sodium 143, Potassium 3.3 L, Chloride 103, Carbon Dioxide 26, Anion Gap 17.3 H, BUN 14, Creatinine 0.80, Estimated Creat Clear 43, Estimated GFR 68, Est GFR ( Amer) 82, Glucose 197 H, Calcium 9.8, Total Bilirubin 0.8, AST 29, ALT 17, Alkaline Phosphatase 128 H, Troponin I < 0.01, NT-Pro-B Natriuret Pep 1680 H, Total Protein 7.8 D, Albumin 4.8, Globulin 3.0, Albumin/Globulin Ratio 1.6, Triglycerides 297 H, Cholesterol 149, LDL Cholesterol Direct 71.76 L, VLDL Cholesterol 59 H, HDL Cholesterol 40, Cholesterol/HDL Ratio 3.7 H, Plasma/Serum Alcohol < 10 02/10/25 18:58: Urine Color Yellow, Urine Appearance Clear, Urine pH 7.5, Ur Specific Grant 1.015, Urine Protein Negative, Urine Glucose (UA) 3+, Urine Ketones Negative, Urine Blood 1+ A, Urine Nitrate Negative, Urine Bilirubin Negative, Urine Urobilinogen 0.2, Ur Leukocyte Esterase 1+ A, Urine RBC 10-20, Urine WBC 50-100, Ur Squamous Epith Cells 10-20, Urine Bacteria 4+, Urine Opiates Screen Negative, Urine Methadone Screen Negative, Ur Barbituates Screen Negative, Ur Phencyclidine Scrn Negative, Ur Amphetamines Screen Negative, U Benzodiazepines Scrn Negative, Urine Cocaine Screen Negative, U Marijuana (THC) Screen Negative 02/10/25 21:17: Troponin I < 0.01 Orders (Tests/Meds): ED MEDICATIONS Generic Name Dose Route Start Last Admin Trade Name Danica PRN Reason Stop Dose Admin Sodium Chloride 10 ml 02/10/25 18:26 Sodium Chloride 0.9% 10ml Flush Syringe IV 03/12/25 18:25 NEEDED PRN Maintain IV Site Sodium Chloride 10 ml 02/10/25 19:03 02/10/25 19:03 Sodium Chloride 0.9% 10ml Syr (Rad Only) IV 03/12/25 19:02 10 ml NEEDED PRN Administration Maintain IV Site Discontinued Medications Generic Name Dose Route Start Last Admin Trade Name Frecaty PRN Reason Stop Dose Admin Amlodipine Besylate 5 mg 02/10/25 21:38 02/10/25 21:59 Amlodipine 5mg Tablet PO 02/10/25 21:39 5 mg ONCE ONE Administration Aspirin 81 mg 02/10/25 20:16 02/10/25 20:54 Aspirin 81mg Chewable Tablet PO 02/10/25 20:17 81 mg ONCE ONE Administration Aspirin 81 mg 02/10/25 21:39 02/10/25 21:53 Aspirin 81mg Chewable Tablet PO 02/10/25 21:40 Not Given ONCE ONE Clopidogrel Bisulfate 300 mg 02/10/25 20:16 02/10/25 20:54 Clopidogrel 300mg Tablet PO 02/10/25 20:17 300 mg ONCE ONE Administration Iopamidol 80 ml 02/10/25 19:03 02/10/25 19:04 Iopamidol-370 (76%);100ml Bottle IV 02/10/25 19:04 80 ml ONCE ONE Administration Isosorbide Mononitrate 30 mg 02/10/25 21:40 02/10/25 22:02 Isosorbide Dade 30mg Tab.Er.24h PO 02/10/25 21:41 30 mg ONCE ONE Administration Metoprolol Tartrate 25 mg 02/10/25 21:38 02/10/25 21:59 Metoprolol Tartrate 50mg Tablet PO 02/10/25 21:39 25 mg ONCE ONE Administration Sodium Chloride 50 ml 02/10/25 19:03 02/10/25 19:04 0.9 % Sodium Chloride 50 Ml Vial IV 02/10/25 19:04 50 ml ONCE ONE Administration ORDERS Category Date Time Status CT angio head Stat Cat Scan 02/10/25 18:[address] angio neck Stat Cat Scan 02/10/25 18:[address] head/brain wo con Stat Cat Scan 02/10/25 18:26 Completed Activated Partial Thrombo Time Stat Lab 02/10/25 18:15 Completed BNP [NT Pro Brain Natriuretic Pep.] Stat Lab 02/10/25 18:15 Completed Complete Blood Count Auto Diff Stat Lab 02/10/25 18:15 Completed Comprehensive Metabolic Panel Stat Lab 02/10/25 18:15 Completed Drug Screen,Urine Stat Lab 02/10/25 18:58 Completed Ethyl Alcohol Stat Lab 02/10/25 18:15 Completed Lipid Panel Stat Lab 02/10/25 18:15 Completed Prothrombin Time INR Stat Lab 02/10/25 18:15 Completed Troponin I Q3H Lab 02/10/25 21:17 Completed Troponin I Q3H Lab 02/11/25 00:30 Ordered Troponin I Stat Lab 02/10/25 18:15 Completed Urinalysis and Microscopic Stat Lab 02/10/25 18:58 Completed Urine Culture Stat Micro 02/10/25 18:58 Received Medical Decision Narrative: In summary, patient is an 89-year-old female PMHx hypertension, CHF, history of abnormal stress test, CAD, HLD, ALONSO, history of right bundle branch block who presents to the ED with her spouse and daughter for complaints of dizziness and hypertension. Patient & spouse recall that last night patient was walking attempting to get to the restroom when she was so dizzy she started to fall into the wall, had to assist her. Normally she walks on her own without dizziness. She states that over the course of the day she has become increasingly dizzy, worse upon movement. She has taken all of her medications, has not missed any doses. She denies headache, visual changes, chest pain, shortness of breath, abdominal pain, nausea, vomiting. Differential diagnosis included ACS, ICH, mass, aneurysm, other central causes of vertigo, infectious process, among others. CBC unremarkable for any leukocytosis, stable H&H. Coags PT 12.4, INR 1.13, APTT 24.4. CMP remarkable for potassium of 3.3, anion gap 17.3, glucose 197. First troponin < 0.01. BNP 1680. Triglycerides 297, LDL 71.7. CT Head without unremarkable for any acute process. CT angio head remarkable for severe atherosclerotic disease of the right intracranial ICA moderate stenosis of the cavernous segment and severe stenosis of the ophthalmic segment. Severe atherosclerotic disease of the left intracranial ICA. CT angio neck remarkable for severe atherosclerotic disease of the right vertebral artery resulting in severe stenosis. 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 Care transferred to attending, Dr. Ferro. Nancy Ferro DO On exam, patient did have bilateral horizontal nystagmus with partial left rotary nystagmus. Given patient's inability to walk a straight line had concerns for possible posterior circulation stroke. My concerns I discussed that case with [facility]. They excepted patient for transfer. Patient had an NIH of 0. They recommended to give aspirin and Plavix in the emergency department. Patient will be sent in stable condition via BLS to [facility]. Critical Care <Maryann Wei APRN - Last Filed: 02/10/25 21:41> Critical Care Time Critical Care Time: No
[2025-02-10 18:41] LABS: Hematocrit 41.2 % (37.0-47.0); Hemoglobin 12.8 g/dL (12.2-16.2); Immature Granulocytes % 0.8 %; Mean Corpuscular HGB Conc 31.1 g/dL (31.8-35.4); Mean Corpuscular Hemoglobin 25.3 pg (27.0-31.2); Mean Corpuscular Volume 81.4 fl (81-99); Nucleated Red Blood Cells % 0 %; Platelet Count 208 K/mm3 (142-424); Red Blood Count 5.06 M/mm3 (4.20-5.40); Red Cell Distribution Width-SD 46.7 fL; White Blood Count 7.5 K/mm3 (4.8-10.8)
[2025-02-10 18:49] LABS: Alanine Aminotransferase 17 U/L (12-78); Albumin Level 4.8 g/dl (3.5-5.0); Albumin/Globulin Ratio 1.6 (1.1-1.8); Alkaline Phosphatase 128 U/L (38-126); Anion Gap 17.3 mEq/L (5-15); Aspartate Amino Transferase 29 U/L (14-36); Bilirubin,Total 0.8 mg/dl (0.2-1.3); Blood Urea Nitrogen 14 mg/dl (7-17); Calcium 9.8 mg/dl (8.4-10.2); Carbon Dioxide 26 mmol/L (22.0-30.0); Chloride 103 mmol/L (98-107); Cholesterol 149 mg/dl (140-200); Creatinine Clearance Estimated 43 mL/min (50-200); Creatinine,Serum 0.80 mg/dl (0.52-1.04); Estimated Glomerular Filt Rate 68 ml/min (>60); GFR (African American) 82 ML/MIN (>60); Globulin 3.0 g/dL (1.3-3.2); Glucose 197 mg/dl (74-100); HDL Cholesterol 40 mg/dl (40-60); Potassium 3.3 mmoL/L (3.5-5.1); Sodium 143 mmol/L (136-145); Total Protein,Serum 7.8 g/dl (6.3-8.2); Triglycerides 297 mg/dl (30-150)
[2025-02-10 18:52] LABS: Activated Partial Thrombo Time 24.4 seconds (22.8-30.6); INR 1.13 (0.9-1.1); Prothrombin Time 12.4 seconds (10.1-12.5)
[2025-02-10 19:03] LABS: Troponin I < 0.01 ng/ml (0.00-0.034)
[2025-02-10] MEDS: SODIUM CHLORIDE 0.9% 10ML SYR (RAD ONLY) 10 ML IV (19:03)
[2025-02-10 19:04] LABS: NT Pro Brain Natriuretic Pep. 1680 pg/mL (0-450)
[2025-02-10 19:04] LABS: Microscopic, Urine URINE MICROSCOPIC (MICROSCOPIC)
[2025-02-10] MEDS: 0.9 % SODIUM CHLORIDE 50 ML VIAL IV (19:04)
[2025-02-10] MEDS: IOPAMIDOL-370 (76%);100ML BOTTLE 80 ML IV (19:04)
[2025-02-10 19:07] LABS: Bilirubin,Urine Negative (Negative); Color,Urine YELLOW (Yellow); Glucose,Urine (UA) 3+ (Negative); Ketones,Urine Negative (Negative); Leukocyte Esterase,Urine 1+ (Negative); PH,Urine 7.5 (5.0-8.5); Protein,Urine Negative (Negative); Specific Gravity, Urine 1.015 (1.005-1.030); Urobilinogen,Urine 0.2 EU/dl (0.2)
[2025-02-10 19:22] LABS: Amphetamine/Metha Screen,Urine Negative ng/ml (<1000); Barbiturates Screen,Urine Negative ng/ml (<200); Benzodiazepines Screen,Urine Negative ng/ml (<200); Methadone Screen,Urine Negative ng/ml (<300); Opiate Screen,Urine Negative ng/ml (<300); Phencyclidine Screen,Urine Negative ng/ml (<25)
[2025-02-10 19:24] LABS: WBC,Urine 50-100 #/hpf (0-3)
[2025-02-10 19:25] LABS: Bacteria,Urine 4+ /lpf
--- NOTE | 2025-02-10 20:47 | PC.NURSE ---
Attempted to call report to [facility]; nurse Christensen answered; states nurse getting the patient is busy and requests we call back in 15 minutes
[2025-02-10] MEDS: ASPIRIN 81MG CHEWABLE TABLET 81 MG PO (20:54)
--- NOTE | 2025-02-10 21:06 | PC.NURSE ---
Attempted to call report to [facility] for the third time; per Fermin, nurse is still unable to take report and will call back
--- NOTE | 2025-02-10 21:21 | PC.NURSE ---
repeat troponin sent
--- NOTE | 2025-02-10 21:42 | PC.NURSE ---
Report given to ROBERT Ennis at [facility]
[2025-02-10] MEDS: AMLODIPINE 5MG TABLET 5 MG PO (21:59)
[2025-02-10] MEDS: METOPROLOL TARTRATE 50MG TABLET 25 MG PO (21:59)
[2025-02-10 22:01] LABS: Troponin I < 0.01 ng/ml (0.00-0.034)
[2025-02-10] MEDS: ISOSORBIDE MONO 30MG TAB.ER.24H 30 MG PO (22:02)
[2025-02-11] VITALS: BP 135/86; PULSE 76; RESP 17; O2SAT 95
[2025-02-11 00:30] VITALS: BP 150/84; PULSE 79; RESP 15; O2SAT 95
[2025-02-11 01:39] VITALS: BP 156/90; PULSE 80; RESP 18; TEMP 36.9; O2SAT 95
== END 2025-02-11 01:41 | disposition short-term general hospital (02) ==
PROVIDERS: Nurse Practitioner; Emergency Provider Student in an Organized Health Care Education/Training Program; PCP Internal Medicine Adolescent Medicine
DX: I65.29 Occlusion and stenosis of unspecified carotid artery (principal); R29.818 Other symptoms and signs involving the nervous system; R42 Dizziness and giddiness; I11.0 Hypertensive heart disease with heart failure; I50.9 Heart failure, unspecified; E11.65 Type 2 diabetes mellitus with hyperglycemia; Z79.84 Long term (current) use of oral hypoglycemic drugs
CPT/HCPCS: 70450; 70496; 70498; 80053; 80061; 80307; 80320; 81001; 83880; 84484; 85025; 85610; 85730; 87086; 93005; 99285; Q9967